=== PATIENT | male | born 1950 | race Caucasian/White ===

== ENCOUNTER 2024-04-23 09:36 | Inpatient (IN) | payer MEDICARE, BC, SELFPAY ==
[2024-04-23] VITALS (10 sets, daily range): BP systolic 118–150; BP diastolic 64–95; PULSE 74–113; RESP 18–32; TEMP 36.7–39.3; O2SAT 95–99; BMI 35.5
--- NOTE | 2024-04-23 10:28 | XR_ITS ---
Examination: AP chest single view Technique one AP portable semiupright chest single view Exam date and time: April 23, 2024 1049 hrs. Comparison November 03, 2022 Indications: Shortness of breath coughing beginning 2 days ago. Findings: Mild enlargement cardiac contour Moderate vascular congestion No lobar pneumonia Impression: Moderate vascular congestion
[2024-04-23 10:50] LABS: Basophils % (Auto) 0 % (0-2.5); Eosinophils % (Auto) 0 % (0-10); Hematocrit 40.4 % (41.0-53.0); Hemoglobin 13.6 g/dL (13.5-16.0); Immature Granulocytes % (Auto) 0 % (0-0); Immature Granulocytes Auto 0.01 Thou/mm3 (0.00-0.00); Lymphocytes # (Auto) 0.5 Thou/mm3 (1.0-4.8); Lymphocytes % (Auto) 10 % (10-50); Mean Corpuscular HGB Conc 33.7 g/dl (31.0-37.0); Mean Corpuscular Hemoglobin 29.8 pg (25.0-35.0); Mean Corpuscular Volume 89 fL (80-100); Monocytes # (Auto) 0.9 Thou/mm3 (0.0-0.8); Monocytes % (Auto) 18 % (0-12); Neutrophils # (Auto) 3.7 Thou/mm3 (1.8-7.7); Neutrophils % (Auto) 72 % (37-80); Nucleated Red Blood Cell % 0 /100 WBC (0); Platelet Count 118 Thou/mm3 (140-440); RDW Standard Deviation 42.8 fL (35.1-43.9); Red Blood Count 4.56 Miln/mm3 (4.50-5.90); White Blood Count 5.1 Thou/mm3 (3.8-10.6)
[2024-04-23 10:52] LABS: Lactate (Lactic Acid) 0.7 mMol/L (0.4-2.0)
[2024-04-23] MEDS: SODIUM CHLORIDE 0.9% 1000 ML 1,000 ML 999 ML IV (11:07)
[2024-04-23 11:16] LABS: Alanine Aminotransferase 10 U/L (10-49); Albumin, Serum 4.1 gm/dL (3.4-4.8); Albumin/Globulin Ratio 1.5 (1.2-2.2); Alkaline Phosphatase 57 U/L (46-116); Anion Gap 8 (7-16); Aspartate Amino Transferase < 10 U/L (0-34); BUN/Creatinine Ratio 16 Ratio (12-20); Bilirubin,Total 0.5 mg/dL (0.3-1.2); Blood Urea Nitrogen 16 mg/dL (9-23); Calcium 8.7 mg/dL (8.3-10.6); Calcium (Corrected) 8.7 mg/dL (8.5-10.1); Chloride 105 mMol/L (98-107); Estimated Creatinine Clearance 71.7 mL/min (>60); Globulin 2.7 gm/dL (2.3-3.5); Glucose 124 mg/dL (74-106); Osmolality,Calculated 283 (275-295); Potassium 4.3 mMol/L (3.4-5.1); Procalcitonin 0.09 ng/ml (0.0-0.49); Sodium 141 mMol/L (136-145); Total Protein 6.8 gm/dL (5.7-8.2); eGFR > 60 See Note
[2024-04-23 11:27] LABS: Collection Type, Urine Clean Catch
[2024-04-23 11:32] LABS: Bilirubin,Urine Negative (Negative); Blood,Urine Negative (Negative); Clarity,Urine Clear (Clear/Hazy); Color,Urine Lt-Yellow (Lt Yel-Yel); Glucose, Urine Negative (Negative); Ketones,Urine Negative (Negative); Leukocyte Esterase,Urine Negative (Negative); Nitrite,Urine Negative (Negative); Protein,Urine 1+ (Neg - Trace); RBC,Urine 1 /hpf (0-3); Specific Gravity,Urine 1.023 (1.001-1.035); Squamous Epithelial Cell,Urine < 1 /hpf (0-5); Urobilinogen,Urine Negative mg/dL (0.0-1.0); WBC,Urine 2 /hpf (0-5)
--- NOTE | 2024-04-23 11:50 | XR_ITS ---
Examination: CT brain head without contrast. 2-D sagittal coronal reconstructions Date and time of exam:April 23, 2024 1409 hrs. Comparison November 10, 2021. Indications: Onset altered mental status today CTDI: vol (mGy):54.8 DLP: (mGycm):1134 Technique: Multiple CT axial sections of the brain have been obtained, 5 mm slice thickness. Contrast has not been administered. 2-D sagittal, coronal reconstructions have been obtained Low dose protocols were performed. One or more of the following dose reduction techniques were used; automated exposure control, adjustment of the mA and/or KV according to patient size, use of iterative reconstruction technique. Findings: No significant ventricular enlargement. Intra-axial or extra-axial hemorrhage density is not seen. No mass effect or midline shift Basal cisterns are not remarkable. Fourth ventricle is midline. Cranial vault intact. Impression: Negative for acute hemorrhage, mass effect or midline shift Advise clinical correlation and follow-up accordingly
--- NOTE | 2024-04-23 14:07 | EDNOTE_ITS ---
<Statement entered by Masoud Quach MD - 04/25/24 22:21> Patient was seen by Dr. Mitchell from ER. ED General RME/HPI General Chief complaint: Altered Mental Status Stated complaint: AMS Arrival date/time: 04/23/24 09:36 RME / HPI RME / HPI narrative: 74-year-old male with a history of Parkinson's dementia, wheelchair-bound, who presents to the emergency department with increased cough, fevers, and mild lethargy. Patient is slow to answer questions does not offer further details. Related Data Home Medications ?Medication ?Instructions ?Recorded ?Confirmed carbidopa 25 mg-levodopa 100 mg 1 tab PO Q6HR 11/03/22 04/23/24 tablet furosemide 40 mg tablet 40 mg PO BID 11/03/22 gemfibrozil 600 mg tablet 600 mg PO DAILY 11/03/2205/16 nitroglycerin 0.4 mg sublingual 0.4 mg buccal PRN PRN Chest Pain 11/03/22 04/23/24 tablet potassium chloride 10 mEq 10 meq PO DAILY 11/03/2205/16 tablet,extended release(part/cryst) ropinirole 1 mg tablet 0.5 mg PO QAM 11/03/2204/23 tamsulosin 0.4 mg capsule 0.4 mg PO DAILY 11/03/2205/16 tizanidine 4 mg tablet 4 - 8 mg PO HS 11/03/2205/16 carbidopa ER 61.25 mg-levodopa 245 1 cap PO TID 04/23/24 mg capsule,extended release (Rytary) linaclotide 145 mcg capsule 145 mcg PO QAM 04/23/24 (Linzess) melatonin 10 mg tablet 10 mg PO HS 04/23/24 5 Allergies Allergy/AdvReac Type Severity Reaction Status Date / Time Sulfa (Sulfonamide Allergy Intermediate Swelling Verified 04/23/24 10:05 Antibiotics) of Lip/Tongue/Throat lorazepam (From Ativan) AdvReac Unknown Confusion Verified 04/23/24 20:57 Review of Systems Review of Systems ROS Unobtainable: unobtainable due to mental status ED Exam Narrative Physical exam: GENERAL APPEARANCE: AxOx4, generally well-appearing, no acute distress, he has occasional wet cough during encounter, low-frequency pill-rolling tremor HEENT: NC, AT. MMM. EOMI, clear conjunctiva, oropharynx clear. NECK: Supple without lymphadenopathy. No stiffness or restricted ROM. HEART: Normal rate and regular rhythm, normal S1/S1, no m/r/g LUNGS: CTAB, moving air well. No crackles or wheezes are heard. ABDOMEN: Soft, nontender, nondistended with good bowel sounds heard. BACK: No midline C/T/L spine pain or deformity, No CVAT, no obvious deformity. EXTREMITIES: Without cyanosis, clubbing or edema. MUSCULOSKELETAL: FROM of all major joints, no chest tenderness NEUROLOGICAL: Grossly nonfocal. Alert and oriented, moving all 4 extremities. CN not formally tested but appear grossly intact. Observed to ambulate with normal gait. Skin: Warm and dry without any rash. Course Quality Measures none Orders Category Date Time Status Bedside COVID-19 Antigen Test NOW Care 04/23/24 11:50 Completed Bedside Influenza A&B Antigen Test NOW Care 04/23/24 11:[address] head/brain wo con Stat Exams 04/23/24 11:50 Completed XR chest 1V Stat Exams 04/23/24 10:28 Completed Blood Culture (Lab) Stat Lab 04/23/24 16:34 Results CBC Stat Lab 04/23/24 10:37 Completed CMP [Comprehensive Metabolic Panel] Stat Lab 04/23/24 10:37 Completed Lactate (Lactic Acid) Stat Lab 04/23/24 10:47 Completed Procalcitonin Stat Lab 04/23/24 10:37 Completed Urinalysis Stat Lab 04/23/24 11:09 Completed Acetaminophen Tab [Tylenol Tab] Med 04/23/24 14:38 Discontinued 650 mg PO X1 ONE Sodium Chloride 0.9% 1000 ml [Ns] 1,000 ml Med 04/23/24 10:28 Discontinued IV 999 mls/hr Reevaluation(s) Reevaluation #1: Patient became altered, agitated, picking at the abilio, taking his clothes off Vital Signs Vital signs: Vital Signs Temperature 100.4 F 04/23/24 09:41 Pulse Rate 85 04/23/24 09:41 Respiratory Rate 22 H 04/23/24 09:41 Blood Pressure 150/79 H 04/23/24 09:41 Pulse Oximetry (%) 97 04/23/24 09:41 Oxygen Delivery Method Nasal Cannula 04/23/24 09:41 SpO2 97% on room air, patient is not hypoxic MDM Patient data External records reviewed:: [facility] previous records Clinical information provided by:: patient and spouse Social determinants that could affect healthcare access:: none Patient has the following chronic illnesses:: Rym-pawkubq-rphkjrihg diabetes, Parkinson's How is presenting disease/condition affected by chronic disease/condition?: u neffected by Evaluation data The following diagnostics were reviewed and interpreted by me:: lab results, radiology exam(s) and EKG tracing(s) Lab and/or radiology exams considered but not ordered:: None Interpretation Summary: As per narrative Medications Medications considered but not ordered:: As per narrative Medication administrations:: Medication Administration History Acetaminophen (Acetaminophen 325 Mg Tablet) 650 mg PO Q6H PRN PRN Reason: Pain 1-3 and/or Fever >100.1 Stop: 05/23/24 16:08 Last Admin: 04/25/24 14:06 Dose: 650 mg Documented By: Admin: 04/24/24 00:16 Dose: 650 mg Documented By: RADHA Young 145 Mcg (Capsules) 0 ea PO ACBR [facility] Stop: 05/25/24 05:59 Last Admin: 04/25/24 05:33 Dose: 1 capsule Documented By: SUGEY Rytary (Carbidopa/Levodopa) 61.25 Mg/245 Mg Extended Release Capsules 0 ea PO TID [facility] Stop: 05/25/24 13:59 Last Admin: 04/25/24 14:07 Dose: 1 capsule Documented By: MT Dextrose (Dextrose 50%-Water Inj 50 Ml Syringe) 25 ml IV Q15MIN PRN PRN Reason: BG 50-70 responsive npo pt Stop: 05/23/24 16:08 Dextrose (Dextrose 50%-Water Inj 50 Ml Syringe) 50 ml IV Q15MIN PRN PRN Reason: BG <50 OR BG <70 & pt unresponsive Stop: 05/23/24 16:08 Glucagon (Glucagon Inj 1 Mg Vial) 1 mg IM Q15MIN PRN PRN Reason: BG <70, and no IV access Heparin Sodium (Porcine) (Heparin Sod Inj 5000 Unit/Ml Vial) 5,000 unit SC Q12HR [facility] Stop: 05/07/24 20:59 Last Admin: 04/25/24 10:32 Dose: 5,000 unit Documented By: MT Co-signed By: Admin: 04/24/24 20:38 Dose: 5,000 unit Documented By: SUGEY Co-signed By: JOHNATHAN Admin: 04/24/24 09:55 Dose: 5,000 unit Documented By: JOVAN Co-signed By: RAJ Admin: 04/23/24 22:14 Dose: 5,000 unit Documented By: CTF Co-signed By: FESTUS Remdesivir 100 mg/ Sodium (Chloride) 100 mls @ 100 mls/hr IV Q24H NR; Protocol Stop: 04/25/24 14:59 Last Admin: 04/25/24 14:31 Dose: 100 mls/hr Documented By: Infusion: 04/24/24 15:11 Dose: Infused Documented By: Admin: 04/24/24 14:11 Dose: 100 mls/hr Documented By: JOVAN Insulin Human Lispro (Insulin Lispro (Admelog) 1 Unit/0.01 Ml Unit) 0 unit SC AC FERNANDO; Protocol Stop: 05/23/24 16:59 Last Admin: 04/25/24 11:35 Dose: Not Given Documented By: MT Non-Admin Reason: Per Protocol Admin: 04/25/24 07:30 Dose: Not Given Documented By: MT Non-Admin Reason: Per Protocol Admin: 04/24/24 17:44 Dose: Not Given Documented By: RAJ Non-Admin Reason: Per Protocol Admin: 04/24/24 11:16 Dose: Not Given Documented By: JOVAN Non-Admin Reason: Per Protocol Admin: 04/24/24 09:56 Dose: Not Given Documented By: JOVAN Non-Admin Reason: Per Protocol Admin: 04/23/24 17:09 Dose: Not Given Documented By: VRS Non-Admin Reason: Per Protocol Melatonin (Melatonin 3 Mg Tablet) 9 mg PO HS FERNANDO Stop: 05/23/24 20:59 Last Admin: 04/24/24 20:37 Dose: 9 mg Documented By: Admin: 04/23/24 22:02 Dose: 9 mg Documented By: CTF Ondansetron HCl (Ondansetron Inj 2 Mg/Ml Inj 2 Ml) 4 mg IV Q6H PRN; Protocol PRN Reason: NAUSEA OR VOMITING Stop: 05/23/24 16:08 Ropinirole HCl (Ropinirole Hcl 0.25 Mg Tablet) 0.5 mg PO QAM FERNANDO Stop: 05/24/24 08:59 Last Admin: 04/25/24 10:32 Dose: 0.5 mg Documented By: MT Sennosides (Senna Tablet) 1 tab PO QDAY PRN; Protocol PRN Reason: constipation Stop: 05/23/24 16:08 Tamsulosin HCl (Tamsulosin Hcl 0.4 Mg Capsule) 0.4 mg PO DAILY FERNANDO Stop: 05/24/24 08:59 Last Admin: 04/25/24 10:32 Dose: 0.4 mg Documented By: Admin: 04/24/24 09:55 Dose: 0.4 mg Documented By: VZ Tizanidine HCl (Tizanidine Hcl 2 Mg Tablet) 4 - 8 mg PO HS [facility] Stop: 05/23/24 20:59 Last Admin: 04/24/24 20:38 Dose: 4 mg Documented By: Admin: 04/23/24 22:03 Dose: 4 mg Documented By: CTF Discontinued Medications Acetaminophen (Acetaminophen 325 Mg Tablet) 650 mg PO X1 ONE Stop: 04/23/24 14:39 Last Admin: 04/23/24 14:42 Dose: 650 mg Documented By: CAMILA Sodium Chloride (Ns) 1,000 mls @ 999 mls/hr IV .Q1H1M ONE Stop: 04/23/24 11:28 Last Infusion: 04/23/24 13:26 Dose: Infused Documented By: Admin: 04/23/24 11:07 Dose: 999 mls/hr Documented By: CAMILA Remdesivir 200 mg/ Sodium (Chloride) 250 mls @ 250 mls/hr IV X1 ONE; Protocol Stop: 04/23/24 17:20 Last Infusion: 04/23/24 19:12 Dose: Infused Documented By: Admin: 04/23/24 17:08 Dose: 250 mls/hr Documented By: CAMILA Home Medication- Please Speak With Patient Caregiver To Have Rx Brought To [facility] 1 cap PO TID FERNANDO Stop: 05/23/24 16:14 Last Admin: 04/25/24 06:00 Dose: Not Given Documented By: SUGEY Non-Admin Reason: Medication Not Available Admin: 04/24/24 21:28 Dose: Not Given Documented By: SUGEY Non-Admin Reason: Medication Not Available Admin: 04/24/24 14:12 Dose: Not Given Documented By: VZ Non-Admin Reason: Medication Not Available Admin: 04/24/24 05:42 Dose: Not Given Documented By: CTF Non-Admin Reason: Medication Not Available Admin: 04/23/24 22:23 Dose: Not Given Documented By: CTF Non-Admin Reason: Medication Not Available Admin: 04/23/24 16:31 Dose: Not Given Documented By: ER Non-Admin Reason: Medication Not Available Home Medication- Please Speak With Patient Caregiver To Have Rx Brought To [facility] 145 mcg PO QAM [facility] Stop: 05/24/24 08:59 Last Admin: 04/24/24 09:56 Dose: Not Given Documented By: VZ Non-Admin Reason: Medication Not Available Ropinirole HCl (Ropinirole Hcl 0.5 Mg Tablet) 0.5 mg PO QAM [facility] Stop: 05/24/24 08:59 Last Admin: 04/24/24 09:56 Dose: Not Given Documented By: VZ Non-Admin Reason: Medication Not Available Above Consultations Consultation(s) initiated? (list below): No Diagnosis Differential Diagnosis ED Complaint MDM: Pneumonia, aspiration pneumonia, influenza, COVID-pneumonia Most likely diagnosis given after review of the tests above:: See below Admission Indicated Admission indicated?: indicated Explain why admission is indicated or not indicated:: As per narrative Admission Request Was there a request for admission?: Yes Admission Attestation Admission request attestation: Discussed case with [Dr. Marquez] from Hospitalist service regarding admission. Discussed patients ED course, exam findings, labs, and radiology results. The Hospitalist [agrees,declines] to accept the patient for admission. Disposition Plan Disposition Plan: Admit Medical Decision Making MDM Narrative MDM Narrative: Mr. Stevens is a clinically well-appearing gentleman who presents to the emergency department with vague cough and lethargy/weakness. He otherwise clinically appears well but is coughing occasionally. He was on forthcoming as to whether or not he has aspiration issues given his Parkinson's disease, however with his coughing this was at a significant consideration. In case he needs to be admitted for an aspiration pneumonia, viral testing was done which rapidly returned to positive for COVID. Patient rapidly changed from being comfortable, having a steady note here to laboratory testing was sent which shows no acute processes and significant for normal white blood cell count, normal lactic acid, normal procalcitonin which is fitting with a viral illness picture. Chest x-ray shows no acute cardiopulmonary process on my interpretation but is notable for a mildly widened mediastinum, no focal infiltrates, no bony abnormalities. I also reviewed the radiology interpretation. patient had sudden change in mental status where he was altered, agitated, taking his clothes off, picking at the abilio. It is unclear as to whether that this is secondary to his chronic Parkinson's dementia versus a infectious encephalitis. He does not exhibit symptoms of headache or neck stiffness that would suggest a meningitis. Case was discussed with the hospitalist service given his altered mental status and delirium to monitor under observation. Differential Diagnosis Differential Diagnosis: Pneumonia, aspiration pneumonia, influenza, COVID- pneumonia Lab Data 04/25/24 05:10 04/25/24 05:10 Labs: Lab Results 04/23/24 04/23/24 04/23/24 Range/Units 10:37 10:47 11:09 WBC 5.1 (3.8-10.6) Thou/mm3 RBC 4.56 (4.50-5.90) Miln/mm3 Hgb 13.6 (13.5-16.0) g/dL Hct 40.4 L (41.0-53.0) % MCV 89 (80-100) fL MCH 29.8 (25.0-35.0) pg MCHC 33.7 (31.0-37.0) g/dl RDW Std Deviation 42.8 (35.1-43.9) fL Plt Count 118 L (140-440) Thou/mm3 Neut % (Auto) 72 (37-80) % Lymph % (Auto) 10 (10-50) % [place] % (Auto) 18 H (0-12) % Eos % (Auto) 0 (0-10) % Baso % (Auto) 0 (0-2.5) % Neut # (Auto) 3.7 (1.8-7.7) Thou/mm3 Lymph # (Auto) 0.5 L (1.0-4.8) Thou/mm3 [place] # (Auto) 0.9 H (0.0-0.8) Thou/mm3 Eos # (Auto) 0.0 (0.0-0.5) Thou/mm3 Baso # (Auto) 0.0 (0.0-0.2) Thou/mm3 Immature Gran # (Auto) 0.01 H (0.00-0.00) Thou/mm3 Absolute Nucleated RBC 0.00 (0.00-0.00) Thou/mm3 Immature Gran % 0 (0-0) % Nucleated RBC % 0 (0) /100 WBC Sodium 141 (136-145) mMol/L Potassium 4.3 (3.4-5.1) mMol/L Chloride 105 (98-107) mMol/L Carbon Dioxide 28.0 (20.0-31.0) mMol/L Anion Gap 8 (7-16) BUN 16 (9-23) mg/dL Creatinine 1.0 (0.6-1.3) mg/dL Estim Creat Clear Calc 71.7 (>60) mL/min eGFR > 60 (60 - ) See Note BUN/Creatinine Ratio 16 (12-20) Ratio Glucose 124 H (74-106) mg/dL Calculated Osmolality 283 (275-295) Lactic Acid 0.7 (0.4-2.0) mMol/L Calcium 8.7 (8.3-10.6) mg/dL Corrected Calcium 8.7 (8.5-10.1) mg/dL Total Bilirubin 0.5 (0.3-1.2) mg/dL AST < 10 (0-34) U/L ALT 10 (10-49) U/L Alkaline Phosphatase 57 (46-116) U/L Total Protein 6.8 (5.7-8.2) gm/dL Albumin 4.1 (3.4-4.8) gm/dL Globulin 2.7 (2.3-3.5) gm/dL Albumin/Globulin Ratio 1.5 (1.2-2.2) Procalcitonin 0.09 (0.0-0.49) ng/ml Ur Collection Type Clean Catch Urine Color Lt-Yellow (Lt Yel-Yel) Urine Clarity Clear (Clear/Hazy) Urine pH 6.0 (5.0-7.0) Ur Specific [place] 1.023 (1.001-1.035) Urine Protein 1+ A (Neg - Trace) Urine Glucose (UA) Negative (Negative) Urine Ketones Negative (Negative) Urine Blood Negative (Negative) Urine Nitrite Negative (Negative) Urine Bilirubin Negative (Negative) Urine Urobilinogen (Auto) Negative (0.0-1.0) mg/dL Ur Leukocyte Esterase Negative (Negative) Urine RBC 1 (0-3) /hpf Urine WBC 2 (0-5) /hpf Ur Squamous Epith Cells < 1 (0-5) /hpf Urine Bacteria None (None) Discharge Plan Plan Patient Disposition: Admit Acute Care w/in Hospital Problem List Clinical Impression: COVID-19, Delirium due to general medical condition, Dementia in Parkinson's disease
[2024-04-23] MEDS: ACETAMINOPHEN 325 MG TABLET 650 MG PO (14:42)
--- NOTE | 2024-04-23 15:55 | PC.NURSE ---
DR. AUGUSTIN ON THE PHONE WITH AND UPDATING ON PLAN OF CARE.
--- NOTE | 2024-04-23 16:23 | ESHP_ITS ---
Documentation for date of: 04/23/24 HPI History of Present Illness Chief complaint: Cough, subjective fever and lethargy History of present illness: 74-year-old male with a past medical history of diabetes, Parkinson's disease, prostatomegaly, and urinary retention s/p UroLift procedure presented to the ED with chief complaints of generalized weakness, fever, and unproductive cough. History acquired from ED physician along with over telephone. The patient has Parkinson's disease but per is able to ambulate at home using a walker. She denies that the patient has had any recent falls. Patient is verbal and does sporadically answer questions appropriately; however, he needs extensive redirection when examining. Per patient's , the entire household is COVID positive and she states that she is unable to effectively take care of him. The is the primary real estate agency licensee for the patient. PMH: DM2, Parkinson, BPH,ventral hernia Allergies: Sulfa drugs Meds: Carbidopa-levodopa, Linzess, ropinirole, tamsulosin, tizanidine PSH: Bilateral knee total replacement, urolift. Family History: noncontributory SH: Denies smoking, alcohol use, lives at home with . is a caregiver In ED, patients vitals was BP 155/73, HR 87, RR 25, satting 92+ on room air. Imaging findings included CXR which showed Mild enlargement cardiac contour, moderate vascular congestion and no lobar pneumonia. CT head was negative for any acute process. Patient will be admitted for COVID 19 exacerbation and will be treated with remdesivir regimen; will have further discussion with patient's family regarding eventual discharge and placement. Exam Vital Signs Temp Pulse Resp BP Pulse Ox O2 Del Method 100.4 F 89 32 H 121/92 H 95 Room Air 04/23/24 16:00 04/23/24 16:00 04/23/24 16:00 04/23/24 16:04/23/24 16:04/23/24 16:00 Narrative Exam Physical Exam: GENERAL: Awake, answering questions appropriately at times, appears stated age HEENT: NC/AT. Moist mucosa. PERRLA/EOMI. CARDIO: Heart RRR, no obvious murmurs, no JVD. PULM: Nonproductive coughing, no signs of visible SOB. Lungs CTA B/L. No Rales, wheezing or rhonchi auscultated GI: Abdomen mildly distended but soft, NT, +BS. Presence of ventral hernia SKIN/MSK/EXT: No wounds/discoloration/rashes/edema/amputations. +Pedal pulses present B/L. NEURO: Oriented x2 (not to place, gave unclear answer), pill-rolling tremor noted bilateral upper extremities, no focal neurologic deficits Results: Labs 04/25/24 05:10 04/25/24 05:10 Labs: Short CBC 04/23/24 Range/Units 10:37 WBC 5.1 (3.8-10.6) Thou/mm3 Hgb 13.6 (13.5-16.0) g/dL Hct 40.4 L (41.0-53.0) % Plt Count 118 L (140-440) Thou/mm3 BMP 04/23/24 10:37 Sodium 141 Potassium 4.3 Chloride 105 Carbon Dioxide 28.0 BUN 16 Creatinine 1.0 Glucose 124 H Calcium 8.7 Liver Function 04/23/24 Range/Units 10:37 Total Bilirubin 0.5 (0.3-1.2) mg/dL AST < 10 (0-34) U/L ALT 10 (10-49) U/L Alkaline Phosphatase 57 (46-116) U/L Albumin 4.1 (3.4-4.8) gm/dL Urine 04/23/24 Range/Units 11:09 Urine Color Lt-Yellow (Lt Yel-Yel) Urine Clarity Clear (Clear/Hazy) Urine pH 6.0 (5.0-7.0) Ur Specific [place] 1.023 (1.001-1.035) Urine Protein 1+ A (Neg - Trace) Urine Glucose (UA) Negative (Negative) Quality Measures Quality Measures none Advance care planning discussed with:: spouse () Medications Home Medications and Allergies Home Medications ?Medication ?Instructions ?Recorded ?Confirmed ?Type carbidopa 25 mg-levodopa 100 mg 1 tab PO Q6HR 11/03/22 04/23/24 History tablet furosemide 40 mg tablet 40 mg PO BID 11/03/22 History gemfibrozil 600 mg tablet 600 mg PO DAILY 11/03/2205/16 History nitroglycerin 0.4 mg sublingual 0.4 mg buccal PRN PRN Chest Pain 11/03/22 04/23/24 History tablet potassium chloride 10 mEq 10 meq PO DAILY 11/03/2205/16 History tablet,extended release(part/cryst) ropinirole 1 mg tablet 0.5 mg PO QAM 11/03/2204/23 History tamsulosin 0.4 mg capsule 0.4 mg PO DAILY 11/03/2205/16 History tizanidine 4 mg tablet 4 - 8 mg PO HS 11/03/2205/16 History carbidopa ER 61.25 mg-levodopa 245 1 cap PO TID 04/23/24 History mg capsule,extended release (Rytary) linaclotide 145 mcg capsule 145 mcg PO QAM 04/23/24 History (Linzess) melatonin 10 mg tablet 10 mg PO HS 04/23/24 5 History Allergies Allergy/AdvReac Type Severity Reaction Status Date / Time Sulfa (Sulfonamide Allergy Intermediate Swelling Verified 04/23/24 10:05 Antibiotics) of Lip/Tongue/Throat lorazepam (From Ativan) AdvReac Unknown Confusion Verified 04/23/24 20:57 Visit Medications Acetaminophen (Acetaminophen 325 Mg Tablet) 650 mg PO Q6H PRN PRN Reason: Pain 1-3 and/or Fever >100.1 Stop: 05/23/24 16:08 Dextrose (Dextrose 50%-Water Inj 50 Ml Syringe) 25 ml IV Q15MIN PRN PRN Reason: BG 50-70 responsive npo pt Stop: 05/23/24 16:08 Dextrose (Dextrose 50%-Water Inj 50 Ml Syringe) 50 ml IV Q15MIN PRN PRN Reason: BG <50 OR BG <70 & pt unresponsive Stop: 05/23/24 16:08 Glucagon (Glucagon Inj 1 Mg Vial) 1 mg IM Q15MIN PRN PRN Reason: BG <70, and no IV access Heparin Sodium (Porcine) (Heparin Sod Inj 5000 Unit/Ml Vial) 5,000 unit SC Q12HR FERNANDO Stop: 05/07/24 20:59 Insulin Human Lispro (Insulin Lispro (Admelog) 1 Unit/0.01 Ml Unit) 0 unit SC FERNANDO; Protocol Stop: 05/23/24 16:59 Melatonin (Melatonin 3 Mg Tablet) 9 mg PO [facility] Stop: 05/23/24 20:59 Home Medication- Please Speak With Patient Caregiver To Have Rx Brought To [facility] 1 cap PO TID [facility] Stop: 05/23/24 16:14 Home Medication- Please Speak With Patient Caregiver To Have Rx Brought To [facility] 145 mcg PO QAM [facility] Stop: 05/24/24 08:59 Ondansetron HCl (Ondansetron Inj 2 Mg/Ml Inj 2 Ml) 4 mg IV Q6H PRN; Protocol PRN Reason: NAUSEA OR VOMITING Stop: 05/23/24 16:08 Ropinirole HCl (Ropinirole Hcl 0.5 Mg Tablet) 0.5 mg PO QAM [facility] Stop: 05/24/24 08:59 Sennosides (Senna Tablet) 1 tab PO QDAY PRN; Protocol PRN Reason: constipation Stop: 05/23/24 16:08 Tamsulosin HCl (Tamsulosin Hcl 0.4 Mg Capsule) 0.4 mg PO DAILY [facility] Stop: 05/24/24 08:59 Tizanidine HCl (Tizanidine Hcl 2 Mg Tablet) 4 - 8 mg PO HS [facility] Stop: 05/23/24 20:59 Discontinued Medications Acetaminophen (Acetaminophen 325 Mg Tablet) 650 mg PO X1 ONE Stop: 04/23/24 14:39 Last Admin: 04/23/24 14:42 Dose: 650 mg Sodium Chloride (Ns) 1,000 mls @ 999 mls/hr IV .Q1H1M ONE Stop: 04/23/24 11:28 Last Infusion: 04/23/24 13:26 Dose: Infused Assessment & Plan Plan 74-year-old male with a past medical history of diabetes, Parkinson's disease, prostatomegaly, and urinary retention s/p UroLift procedure presented to the ED with chief complaints of generalized weakness, fever, and unproductive cough will be admitted for COVID 19 exacerbation and will be treated with remdesivir regimen; will have further discussion with patient's family regarding eventual discharge and placement. #COVID 19 Infection Patient presenting from home with symptoms of subjective fever, cough and lethargy Per patient's , who is his primary real estate agency licensee also, patient, patient's has been feeling this way for several days Also, patient's family members in the household have also been COVID-positive and are symptomatic Patient's also states that she is currently unable to effectively take care of patient In the ED, patient does not require any supplemental oxygenation; however, he does have risk factors including diabetes Plan: Moderate degree remdesivir treatment for COVID Monitor oxygenation requirements PT eval, swallow eval; will likely look into placement and conversation with family regarding patient's long-term care needs #Parkinson's Disease Patient has longstanding history of Parkinson disease; on home carbidopa/levodopa, ropinirole and tizanidine Plan: Restart home medications #Non-insulin dependent type 2 diabetes mellitus Last A1c 5.6 Patient is not on any home medications Plan: Sliding scale insulin A1c in a.m. Lipid panel in a.m. #Hypertension Patient is mildly hypertensive with a systolic blood pressure 155, diastolic 73 Likely secondary to acutely ill status Patient does not have any home antihypertensive medication Plan: Monitor blood pressure #BPH Patient has long standing history of BPH, on home tamsulosin 0.4 mg Plan: Restart home medications #History of constipation, IBS-C Patient on Linzess 145 mcg; states 30 minutes before first meal in the a.m. Plan: Restart home medication Hospital Management: Lines: PIV Bowel: Senna Diet: Clear liquid diet if patient passes nurse swallow screen, pending speech eval to advance GI prophylaxis: Not needed DVT prophylaxis: Heparin subcu Dispo: Treatment for COVID exacerbation Code: Full Patient seen and examined with attending Dr. Quach and senior resident Dr. Jimmy Aldridge, PGY-1 Senior resident attestation: The patient is medical history of Parkinson's disease, prostatomegaly s/p UroLift procedure who was admitted with diagnosis of Acute encephalopathy vs delirium in the setting of COVID infection, Spoke with the full stated patient's baseline mentation is AO x 3, patient was brought with increased cough, fevers and lethargy. Reported she cannot take care of the patient at this time as she has to take care of her mother who is infected with COVID. Per ER physician patient's mentation was at baseline at time of arrival, but over time he started having more confused speech, at time of evaluation the patient can still offer some history in response to direct questions but is mumbling and occasionally has confused speech. Stable vitals but Tmax 102 F, chest x-ray shows moderate vascular congestion. Urinalysis unremarkable Home medications include : tamsulosin 0.4 mg, Tizanidine 2 mg, Ropinirole 0.5 mg, Melatonin, Carbidopa levodopa 1 cap 3 times daily, Hannah Impression: 1?acute encephalopathy versus delirium Possible ing, during prior hospitalization patient had similar episodes of altered mental status which would worsen throughout the day by , continue to observe, patient does have history of Parkinson's, possible underlying Lewy body dementia. 2?COVID-19 infection Started remdesivir, currently saturating well on 2 L NC O2 3?history of Parkinson's Resume home medications. Patient evaluated and examined at the bedside, plan of care discussed with rest of the team including my attending physician, except as noted. Jimmy PGY2 Attending Provider Attestation/Addendum Patient was een in ER 8. Patient admitted for fever, cough and lethargy. He is positive for COVID. PMH significant for Parkinson's disease, prostate enlargement and urinary retention. Remdesivir started.
[2024-04-23] MEDS: REMDESIVIR INJ 200 MG in SODIUM CHLORIDE 0.9% 250 ML 250 ML 250 MG IV (17:08)
--- NOTE | 2024-04-23 18:37 | PC.NURSE ---
Addendum entered by Jodi Campos RN 04/23/24 18:41: REPORT CALLED TO GENNA FORDE NOT RACHELLE. Original Note: REPORT CALLED TO RACHELLE FORDE IN MED SURG. ALL QUESTIONS ANSWERD.
--- NOTE | 2024-04-23 21:00 | PC.NURSE ---
called Bhumika Stevens and advised to bring own med bottle carbidopa-Levodopa and Linzess from home.
[2024-04-23] MEDS: MELATONIN 3 MG TABLET 9 MG PO (22:02)
[2024-04-23] MEDS: tiZANidine HCL 2 MG TABLET PO (22:03)
[2024-04-23] MEDS: HEPARIN SOD INJ 5000 UNIT/ML VIAL SC (22:14)
[2024-04-24] VITALS (13 sets, daily range): BP systolic 101–133; BP diastolic 55–78; PULSE 63–101; RESP 10–28; TEMP 36.1–37.4; O2SAT 92–98; BMI 12.0; BMI 35.6
[2024-04-24] MEDS: ACETAMINOPHEN 325 MG TABLET 650 MG PO (00:16)
--- NOTE | 2024-04-24 00:20 | PC.NURSE ---
pt asleep, 91% O2 sat on room air- Applied O2 inh on at 2L/min/nc per request. Pt uses O2 concentrator at night at 2L/min/nc at home.
[2024-04-24 05:40] LABS: Glucose Estimated Average 111 mg/dL (80-131); Hemoglobin A1C 5.5 % Hgb (4.8-6.0)
[2024-04-24 05:49] LABS: Basophils % (Auto) 0 % (0-2.5); Eosinophils % (Auto) 0 % (0-10); Hematocrit 39.8 % (41.0-53.0); Immature Granulocytes % (Auto) 1 % (0-0); Immature Granulocytes Auto 0.03 Thou/mm3 (0.00-0.00); Lymphocytes # (Auto) 0.8 Thou/mm3 (1.0-4.8); Lymphocytes % (Auto) 11 % (10-50); Mean Corpuscular HGB Conc 32.7 g/dl (31.0-37.0); Mean Corpuscular Hemoglobin 29.8 pg (25.0-35.0); Mean Corpuscular Volume 91 fL (80-100); Monocytes # (Auto) 1.1 Thou/mm3 (0.0-0.8); Monocytes % (Auto) 17 % (0-12); Neutrophils # (Auto) 4.7 Thou/mm3 (1.8-7.7); Nucleated Red Blood Cell % 0 /100 WBC (0); Platelet Count 103 Thou/mm3 (140-440); RDW Standard Deviation 43.3 fL (35.1-43.9); Red Blood Count 4.36 Miln/mm3 (4.50-5.90); White Blood Count 6.6 Thou/mm3 (3.8-10.6)
[2024-04-24 06:10] LABS: Neutrophils % (Auto) 71 % (37-80)
[2024-04-24 06:27] LABS: Alanine Aminotransferase 13 U/L (10-49); Albumin/Globulin Ratio 1.6 (1.2-2.2); Alkaline Phosphatase 50 U/L (46-116); Anion Gap 10 (7-16); Aspartate Amino Transferase 14 U/L (0-34); BUN/Creatinine Ratio 16 Ratio (12-20); Bilirubin,Total 0.6 mg/dL (0.3-1.2); Blood Urea Nitrogen 16 mg/dL (9-23); Calcium 8.8 mg/dL (8.3-10.6); Calcium (Corrected) 8.8 mg/dL (8.5-10.1); Carbon Dioxide 25.6 mMol/L (20.0-31.0); Cardiac Risk Estimate 2.9 RATIO (4.0-6.7); Chloride 106 mMol/L (98-107); Cholesterol 119 mg/dL (132-200); Globulin 2.5 gm/dL (2.3-3.5); Glucose 113 mg/dL (74-106); HDL Cholesterol 41 mg/dL (40-60); LDL Cholesterol,Calculated 65 mg/dL (0-130); Magnesium 1.9 mg/dL (1.6-2.6); Osmolality,Calculated 285 (275-295); Phosphorous 4.8 mg/dL (2.4-5.1); Potassium 3.6 mMol/L (3.4-5.1); Sodium 142 mMol/L (136-145); Total Protein 6.5 gm/dL (5.7-8.2); Triglycerides 67 mg/dL (30-150); eGFR > 60 See Note
[2024-04-24] MEDS: HEPARIN SOD INJ 5000 UNIT/ML VIAL SC ×2 (09:55→20:38)
[2024-04-24] MEDS: TAMSULOSIN HCL 0.4 MG CAPSULE PO (09:55)
--- NOTE | 2024-04-24 10:03 | PCS.ST ---
Swallow Evaluation completed. See report for details. Ok to advance diet to Dysphagia 3, chopped diet. NO s/s of aspiration. Functional oral phase.
[2024-04-24] MEDS: REMDESIVIR INJ 100 MG in SODIUM CHLORIDE 0.9% 100 ML IV (14:11)
--- NOTE | 2024-04-24 15:37 | ESPR_ITS ---
Documentation for date of: 04/24/24 Subjective Subjective Interval history: 04/24/2024: No acute overnight events to report. Patient seen and examined in hospital with significant improvement in presenting symptoms. Patient is more awake and alert and answering questions appropriately. Will continue to monitor patient and to look into SNF placement. Exam Vital Signs Temp Pulse Resp BP Pulse Ox O2 Del Method O2 Flow Rate 99.1 F 68 18 124/67 95 Room Air 1 04/24/24 12:00 04/24/24 12:00 04/24/24 12:04/24/24 12:04/24/24 12:04/24/24 12:04/24/24 12:00 Narrative Exam Physical Exam: GENERAL: Awake, answering questions appropriately, appears stated age HEENT: NC/AT. Moist mucosa. PERRLA/EOMI. CARDIO: Heart RRR, no obvious murmurs, no JVD. PULM: Nonproductive coughing, no signs of visible SOB. Lungs CTA B/L. No Rales, wheezing or rhonchi auscultated GI: Abdomen soft, NT, +BS. Presence of ventral hernia SKIN/MSK/EXT: No wounds/discoloration/rashes/edema/amputations. +Pedal pulses present B/L. NEURO: Oriented x3, pill-rolling tremor noted bilateral upper extremities less obvious with all medications on board, no focal neurologic deficits Objective Labs 04/25/24 05:10 04/25/24 05:10 Labs: Laboratory Results - last 24 hr 04/24/24 04:32 WBC 6.6 RBC 4.36 L Hgb 13.0 L Hct 39.8 L MCV 91 MCH 29.8 MCHC 32.7 RDW Std Deviation 43.3 Plt Count 103 L Neut % (Auto) 71 Lymph % (Auto) 11 Power % (Auto) 17 H Eos % (Auto) 0 Baso % (Auto) 0 Neut # (Auto) 4.7 Lymph # (Auto) 0.8 L Power # (Auto) 1.1 H Eos # (Auto) 0.0 Baso # (Auto) 0.0 Immature Gran # (Auto) 0.03 H Absolute Nucleated RBC 0.00 Immature Gran % 1 H Nucleated RBC % 0 Sodium 142 Potassium 3.6 D Chloride 106 Carbon Dioxide 25.6 Anion Gap 10 BUN 16 Creatinine 1.0 Estim Creat Clear Calc 72.0 eGFR > 60 BUN/Creatinine Ratio [address] Glu mg/dL 111 Hemoglobin A1c 5.5 Calculated Osmolality 285 Calcium 8.8 Corrected Calcium 8.8 Phosphorus 4.8 Magnesium 1.9 Total Bilirubin 0.6 AST 14 ALT 13 Alkaline Phosphatase 50 Total Protein 6.5 Albumin 4.0 Globulin 2.5 Albumin/Globulin Ratio 1.6 Triglycerides 67 Cholesterol 119 L LDL Cholesterol, Calc 65 HDL Cholesterol 41 Cholesterol/HDL Ratio 2.9 L Quality Measures Quality Measures none Advance care planning discussed with:: patient and spouse Assessment & Plan Assessment Current Active Medications: Generic Name Dose Route Start Last Admin Trade Name Freq PRN Reason Stop Dose Admin Acetaminophen 650 mg 04/23/24 16:09 04/24/24 00:16 Acetaminophen 325 Mg Tablet PO 05/23/24 16:08 650 mg Q6H PRN Administration Pain 1-3 and/or Fever >100.1 Dextrose 25 ml 04/23/24 16:09 Dextrose 50%-Water Inj 50 Ml Syringe IV 05/23/24 16:08 Q15MIN PRN BG 50-70 responsive npo pt Dextrose 50 ml 04/23/24 16:09 Dextrose 50%-Water Inj 50 Ml Syringe IV 05/23/24 16:08 Q15MIN PRN BG <50 OR BG <70 & pt unresponsive Glucagon 1 mg 04/23/24 16:09 Glucagon Inj 1 Mg Vial IM Q15MIN PRN BG <70, and no IV access Heparin Sodium (Porcine) 5,000 unit 04/23/24 21:00 04/24/24 09:55 Heparin Sod Inj 5000 Unit/Ml Vial SC 05/07/24 20:59 5,000 unit Q12HR FERNANDO Administration Remdesivir 100 mg/ Sodium 100 mls @ 100 mls/hr 04/24/24 14:00 04/24/24 14:11 Chloride IV 04/25/24 14:59 100 mls/hr Q24H NR Administration Protocol Insulin Human Lispro 0 unit 04/23/24 17:00 04/24/24 11:16 Insulin Lispro (Admelog) 1 Unit/0.01 Ml Unit SC 05/23/24 16:59 Not Given AC FERNANDO Protocol Melatonin 9 mg 04/23/24 21:00 04/23/24 22:02 Melatonin 3 Mg Tablet PO 05/23/24 20:59 9 mg HS FERNANDO Administration Home Medication- 1 cap 04/23/24 16:15 04/24/24 14:12 Please Speak With PO 05/23/24 16:14 Not Given Patient Caregiver To TID FERNANDO Have Rx Brought To [facility] Home Medication- 145 mcg 04/24/24 09:00 04/24/24 09:56 Please Speak With PO 05/24/24 08:59 Not Given Patient Caregiver To [facility] Have Rx Brought To [facility] Ondansetron HCl 4 mg 04/23/24 16:09 Ondansetron Inj 2 Mg/Ml Inj 2 Ml IV 05/23/24 16:08 Q6H PRN NAUSEA OR VOMITING Protocol Ropinirole HCl 0.5 mg 04/24/24 09:00 04/24/24 09:56 Ropinirole Hcl 0.5 Mg Tablet PO 05/24/24 08:59 Not Given QAM [facility] Sennosides 1 tab 04/23/24 16:09 Senna Tablet PO 05/23/24 16:08 QDAY PRN constipation Protocol Tamsulosin HCl 0.4 mg 04/24/24 09:00 04/24/24 09:55 Tamsulosin Hcl 0.4 Mg Capsule PO 05/24/24 08:59 0.4 mg DAILY FERNANDO Administration Tizanidine HCl 4 - 8 mg 04/23/24 21:00 04/23/24 22:03 Tizanidine Hcl 2 Mg Tablet PO 05/23/24 20:59 4 mg HS FERNANDO Administration Plan 74-year-old male with a past medical history of diabetes, Parkinson's disease, prostatomegaly, and urinary retention s/p UroLift procedure presented to the ED with chief complaints of generalized weakness, fever, and unproductive cough will be admitted for COVID 19 exacerbation and will be treated with remdesivir regimen; will have further discussion with patient's family regarding eventual discharge and placement. #COVID 19 Infection Patient presenting from home with symptoms of subjective fever, cough and lethargy Per patient's , who is his primary medical data analyst also, patient, patient's has been feeling this way for several days Also, patient's family members in the household have also been COVID-positive and are symptomatic Patient's also states that she is currently unable to effectively take care of patient In the ED, patient does not require any supplemental oxygenation; however, he does have risk factors including diabetes PT eval, swallow eval - completed Plan: Moderate degree remdesivir treatment for COVID Monitor oxygenation requirements SNF placement ongoing #Parkinson's Disease Patient has longstanding history of Parkinson disease; on home carbidopa/levodopa, ropinirole and tizanidine Plan: Continue home medications #Non-insulin dependent type 2 diabetes mellitus ASCVD 14.3-8.1% Risk of cardiovascular event (coronary or stroke or non- fatal [place] or stroke) in next 10 years. Last A1c of 5.5 Triglyceride 67, cholesterol 119, LDL 65, HDL 41 Patient is not on any home medications Plan: Sliding scale insulin Patient could benefit from moderate-high intensity statin; will consider adding #Hypertension Patient is mildly hypertensive with a systolic blood pressure 155, diastolic 73 Likely secondary to acutely ill status Patient does not have any home antihypertensive medication Plan: Monitor blood pressure #BPH Patient has long standing history of BPH, on home tamsulosin 0.4 mg Plan: Continue home medications #History of constipation, IBS-C Patient on Linzess 145 mcg; states 30 minutes before first meal in the a.m. Plan: Continue home medication Hospital Management: Lines: PIV Bowel: Senna Diet: Clear liquid diet if patient passes nurse swallow screen, pending speech eval to advance GI prophylaxis: Not needed DVT prophylaxis: Heparin subcu Dispo: Treatment for COVID exacerbation Code: Full Patient seen and examined with attending Dr. Jonnathan Aldridge, PGY-1 Attending Provider Attestation/Addendum I have discussed and was present for the essential components of the history, physical examination, diagnosis, and treatment plan with the resident. I agree with the patient's care as documented by the resident and amended herein by me. Eder De Santiago DO. Patient stable, SNF placement pending Although this document has been carefully reviewed, there may still be some phonetic and other typographical errors. These errors are purely grammatical due to imperfections in the software program and should not be construed in any way to compromise the substance of the patient's medical care during this visit.
--- NOTE | 2024-04-24 19:08 | PC.NURSE ---
RN asked the pt to bring in home medications since the pharmacy does not carry his meds. states i forgot them, he doesn't really need them RN educated the on the importance of bringing the pt medications in so the pt can remain on his medication regimen. to bring pt medications
--- NOTE | 2024-04-24 19:53 | PC.NURSE ---
Contacted hospitalist Dr. Bravo regarding patient's carvidopa levidopa order. Made MD aware that the dosage ordred for the patient is unavailable and the family member of the patient was also made aware if they could bring the patient's medication to the hospital from home.
--- NOTE | 2024-04-24 20:00 | PC.NURSE ---
Patient's arrive at unit to give the nurse his home medication (Linzess). Patient's home medication was then given to pharmacy for verification. Patient's family member also needs to bring patient's carvidopa levidopa medication from home. is aware. stated to nurse I think he really dosen't need the carvidopa . MD Dr. Bravo was made aware regarding patient's medication.
[2024-04-24] MEDS: MELATONIN 3 MG TABLET 9 MG PO (20:37)
[2024-04-24] MEDS: tiZANidine HCL 2 MG TABLET PO (20:38)
[2024-04-25] VITALS (7 sets, daily range): BP systolic 125–145; BP diastolic 79–89; PULSE 20–87; RESP 16–20; TEMP 36.3–37; O2SAT 95–99; BMI 11.0
[2024-04-25] MEDS: LINZESS 145 MCG PO (05:33)
[2024-04-25 06:14] LABS: Basophils % (Auto) 0 % (0-2.5); Eosinophils % (Auto) 0 % (0-10); Hematocrit 39.2 % (41.0-53.0); Hemoglobin 13.4 g/dL (13.5-16.0); Immature Granulocytes % (Auto) 0 % (0-0); Immature Granulocytes Auto 0.01 Thou/mm3 (0.00-0.00); Lymphocytes # (Auto) 0.8 Thou/mm3 (1.0-4.8); Lymphocytes % (Auto) 13 % (10-50); Mean Corpuscular HGB Conc 34.2 g/dl (31.0-37.0); Mean Corpuscular Hemoglobin 30.5 pg (25.0-35.0); Mean Corpuscular Volume 89 fL (80-100); Monocytes # (Auto) 0.9 Thou/mm3 (0.0-0.8); Monocytes % (Auto) 15 % (0-12); Neutrophils # (Auto) 4.2 Thou/mm3 (1.8-7.7); Neutrophils % (Auto) 71 % (37-80); Nucleated Red Blood Cell % 0 /100 WBC (0); Platelet Count 130 Thou/mm3 (140-440); RDW Standard Deviation 42.6 fL (35.1-43.9); Red Blood Count 4.39 Miln/mm3 (4.50-5.90); White Blood Count 5.8 Thou/mm3 (3.8-10.6)
[2024-04-25 06:39] LABS: Alanine Aminotransferase 14 U/L (10-49); Albumin/Globulin Ratio 1.6 (1.2-2.2); Alkaline Phosphatase 48 U/L (46-116); Anion Gap 9 (7-16); Aspartate Amino Transferase 25 U/L (0-34); BUN/Creatinine Ratio 26 Ratio (12-20); Bilirubin,Total 0.7 mg/dL (0.3-1.2); Blood Urea Nitrogen 23 mg/dL (9-23); Carbon Dioxide 26.1 mMol/L (20.0-31.0); Chloride 107 mMol/L (98-107); Creatinine (Component) 0.9 mg/dL (0.6-1.3); Globulin 2.5 gm/dL (2.3-3.5); Glucose 108 mg/dL (74-106); Osmolality,Calculated 287 (275-295); Potassium 3.7 mMol/L (3.4-5.1); Sodium 142 mMol/L (136-145); Total Protein 6.5 gm/dL (5.7-8.2); eGFR > 60 See Note
[2024-04-25] MEDS: rOPINIRole HCL 0.25 MG TABLET 0.5 MG PO (10:32)
[2024-04-25] MEDS: HEPARIN SOD INJ 5000 UNIT/ML VIAL SC ×2 (10:32→22:16)
[2024-04-25] MEDS: TAMSULOSIN HCL 0.4 MG CAPSULE PO (10:32)
--- NOTE | 2024-04-25 11:20 | PC.SS ---
SS has sent inquiry to the local SNF using [facility]. PASRR assessment has been completed
[2024-04-25] MEDS: ACETAMINOPHEN 325 MG TABLET 650 MG PO (14:06)
[2024-04-25] MEDS: RYTARY PO ×2 (14:07→22:10)
[2024-04-25] MEDS: REMDESIVIR INJ 100 MG in SODIUM CHLORIDE 0.9% 100 ML IV (14:31)
--- NOTE | 2024-04-25 15:21 | ESPR_ITS ---
Documentation for date of: 04/25/24 Subjective Subjective Interval history: 04/26/2024: No overnight events. Patient seen and examined, appears to be making steady progress. Patient will need to be quarantined for a total of 14 days before he can be discharged to a SNF. Family made aware of this and the management. Patient will also be started on dexamethasone 6mg for a total of 10 days for COVID infection. Will continue to monitor for any acute changes. Exam Vital Signs Temp Pulse Resp BP Pulse Ox O2 Del Method O2 Flow Rate 98.5 F 83 16 140/83 H 95 Nasal Cannula 2 04/25/24 12:00 04/25/24 12:00 04/25/24 12:00 04/25/24 12:00 04/25/24 12:00 04/25/24 12:00 04/25/24 12:00 Narrative Exam Physical Exam: GENERAL: Awake, answering questions appropriately, appears stated age HEENT: NC/AT. Moist mucosa. PERRLA/EOMI. CARDIO: Heart RRR, no obvious murmurs, no JVD. PULM: Nonproductive coughing, no signs of visible SOB. Lungs CTA B/L. No Rales, wheezing or rhonchi auscultated GI: Abdomen soft, NT, +BS. Presence of ventral hernia SKIN/MSK/EXT: No wounds/discoloration/rashes/edema/amputations. +Pedal pulses present B/L. NEURO: Oriented x3, pill-rolling tremor noted bilateral upper extremities less obvious with all medications on board, no focal neurologic deficits Objective Labs 04/25/24 05:10 04/25/24 05:10 Labs: Laboratory Results - last 24 hr 04/25/24 05:10 WBC 5.8 RBC 4.39 L Hgb 13.4 L Hct 39.2 L MCV 89 MCH 30.5 MCHC 34.2 RDW Std Deviation 42.6 Plt Count 130 L D Neut % (Auto) 71 Lymph % (Auto) 13 [place] % (Auto) 15 H Eos % (Auto) 0 Baso % (Auto) 0 Neut # (Auto) 4.2 Lymph # (Auto) 0.8 L [place] # (Auto) 0.9 H Eos # (Auto) 0.0 Baso # (Auto) 0.0 Immature Gran # (Auto) 0.01 H Absolute Nucleated RBC 0.00 Immature Gran % 0 Nucleated RBC % 0 Sodium 142 Potassium 3.7 Chloride 107 Carbon Dioxide 26.1 Anion Gap 9 BUN 23 Creatinine 0.9 Estim Creat Clear Calc 80.0 eGFR > 60 BUN/Creatinine Ratio 26 H Glucose 108 H Calculated Osmolality 287 Calcium 9.0 Corrected Calcium 9.0 Total Bilirubin 0.7 AST 25 ALT 14 Alkaline Phosphatase 48 Total Protein 6.5 Albumin 4.0 Globulin 2.5 Albumin/Globulin Ratio 1.6 Quality Measures Quality Measures none Advance care planning discussed with:: patient and spouse Assessment & Plan Assessment Current Active Medications: Generic Name Dose Route Start Last Admin Trade Name Freq PRN Reason Stop Dose Admin Acetaminophen 650 mg 04/23/24 16:09 04/25/24 14:06 Acetaminophen 325 Mg Tablet PO 05/23/24 16:08 650 mg Q6H PRN Administration Pain 1-3 and/or Fever >100.1 Linzess 145 Mcg 0 ea 04/25/24 06:00 04/25/24 05:33 Capsules PO 05/25/24 05:59 1 capsule ACBR FERNANDO Administration Rytary (Carbidopa/ 0 ea 04/25/24 14:00 04/25/24 14:07 Levodopa) 61.25 Mg/ PO 05/25/24 13:59 1 capsule 245 Mg Extended TID FERNANDO Administration Release Capsules Dextrose 25 ml 04/23/24 16:09 Dextrose 50%-Water Inj 50 Ml Syringe IV 05/23/24 16:08 Q15MIN PRN BG 50-70 responsive npo pt Dextrose 50 ml 04/23/24 16:09 Dextrose 50%-Water Inj 50 Ml Syringe IV 05/23/24 16:08 Q15MIN PRN BG <50 OR BG <70 & pt unresponsive Glucagon 1 mg 04/23/24 16:09 Glucagon Inj 1 Mg Vial IM Q15MIN PRN BG <70, and no IV access Heparin Sodium (Porcine) 5,000 unit 04/23/24 21:00 04/25/24 10:32 Heparin Sod Inj 5000 Unit/Ml Vial SC 05/07/24 20:59 5,000 unit Q12HR FERNANDO Administration Insulin Human Lispro 0 unit 04/23/24 17:00 04/25/24 11:35 Insulin Lispro (Admelog) 1 Unit/0.01 Ml Unit SC 05/23/24 16:59 Not Given AC FERNANDO Protocol Melatonin 9 mg 04/23/24 21:00 04/24/24 20:37 Melatonin 3 Mg Tablet PO 05/23/24 20:59 9 mg HS FERNANDO Administration Ondansetron HCl 4 mg 04/23/24 16:09 Ondansetron Inj 2 Mg/Ml Inj 2 Ml IV 05/23/24 16:08 Q6H PRN NAUSEA OR VOMITING Protocol Ropinirole HCl 0.5 mg 04/25/24 09:45 04/25/24 10:32 Ropinirole Hcl 0.25 Mg Tablet PO 05/24/24 08:59 0.5 mg QAM FERNANDO Administration Sennosides 1 tab 04/23/24 16:09 Senna Tablet PO 05/23/24 16:08 QDAY PRN constipation Protocol Tamsulosin HCl 0.4 mg 04/24/24 09:00 04/25/24 10:32 Tamsulosin Hcl 0.4 Mg Capsule PO 05/24/24 08:59 0.4 mg DAILY FERNANDO Administration Tizanidine HCl 4 - 8 mg 04/23/24 21:00 04/24/24 20:38 Tizanidine Hcl 2 Mg Tablet PO 05/23/24 20:59 4 mg HS FERNANDO Administration Plan 74-year-old male with a past medical history of diabetes, Parkinson's disease, prostatomegaly, and urinary retention s/p UroLift procedure presented to the ED with chief complaints of generalized weakness, fever, and unproductive cough will be admitted for COVID 19 exacerbation and will be treated with remdesivir regimen; will have further discussion with patient's family regarding eventual discharge and placement. #COVID 19 Infection Patient presenting from home with symptoms of subjective fever, cough and lethargy Per patient's , who is his primary county administrator also, patient, patient's has been feeling this way for several days Also, patient's family members in the household have also been COVID-positive and are symptomatic Patient's also states that she is currently unable to effectively take care of patient In the ED, patient does not require any supplemental oxygenation; however, he does have risk factors including diabetes PT eval, swallow eval - completed Remdesevir completed Plan: Dexamethasone 6mg started for a total of 10 days Monitor oxygenation requirements SNF placement ongoing; needs total of 14 day quarantine prior to SNF placement #Parkinson's Disease Patient has longstanding history of Parkinson disease; on home carbidopa/levodopa, ropinirole and tizanidine Plan: Continue home medications #Non-insulin dependent type 2 diabetes mellitus ASCVD 14.3-8.1% Risk of cardiovascular event (coronary or stroke or non- fatal PR or stroke) in next 10 years. Last A1c of 5.5 Triglyceride 67, cholesterol 119, LDL 65, HDL 41 Patient is not on any home medications Plan: Sliding scale insulin Patient could benefit from moderate-high intensity statin; will consider adding #Hypertension Patient is mildly hypertensive with a systolic blood pressure 155, diastolic 73 Likely secondary to acutely ill status Patient does not have any home antihypertensive medication Plan: Monitor blood pressure #BPH Patient has long standing history of BPH, on home tamsulosin 0.4 mg Plan: Continue home medications #History of constipation, IBS-C Patient on Linzess 145 mcg; states 30 minutes before first meal in the a.m. Plan: Continue home medication Hospital Management: Lines: PIV Bowel: Senna Diet: Carb consistent, dysphagia 3 GI prophylaxis: Not needed DVT prophylaxis: Heparin subcu Dispo: Treatment for COVID exacerbation Code: Full Patient seen and examined with attending Dr. Jonnathan Aldridge, PGY-1 Attending Provider Attestation/Addendum I have discussed and was present for the essential components of the history, physical examination, diagnosis, and treatment plan with the resident. I agree with the patient's care as documented by the resident and amended herein by me. Eder De Santiago DO. Vital signs stable, patient afebrile overnight, patient remains on NC 2 L, SpO2 97% at time of bedside visit. Unfortunately SNF placement will be needed however the soonest available is likely 05/05 due to COVID quarantine being required by SNF. Will continue supportive management, may start dexamethasone if the patient's O2 requirement increased. Continue to monitor closely and update the patient's this afternoon Although this document has been carefully reviewed, there may still be some phonetic and other typographical errors. These errors are purely grammatical due to imperfections in the software program and should not be construed in any way to compromise the substance of the patient's medical care during this visit.
--- NOTE | 2024-04-25 15:42 | PC.SS ---
Pt is COVID positive.? SS met with to discuss patient's d/c plan.? Pt is alert/oriented.? Pt is currently confused and per , that is not patient's baseline.? Pt was admitted for COVID +.? ? confirmed patient's demographic and contact information is correct on facesheet.? Pt resides with .? Pt ambulates using a walker.? Pt requires assistance with his ADLS.? takes care of pt at home. ADLs.? Patient utilizes [facility].? is patient's medical decision maker if he is unable.? SS provided with verbal options for d/c to home or SNF.? 's choice is for pt to d/c to SNF.? SS and met with Sayda from [facility] who states they can accept pt on 05-04-24 after 10 days of quarantine.? [facility] states pt followed up with PCP in December,. D/C plan:? SNF Next of Kin: Bhumika Stevens, , phone# [phone] PCP:? Dr. Mosqueda Address:? Correct on facesheet
[2024-04-25] MEDS: DEXAMETHASONE SOD PHOS INJ 10 MG/ML VIAL 6 MG IV (17:37)
[2024-04-25] MEDS: tiZANidine HCL 2 MG TABLET PO (22:09)
[2024-04-25] MEDS: MELATONIN 3 MG TABLET 9 MG PO (22:10)
[2024-04-26] VITALS (8 sets, daily range): BP systolic 122–156; BP diastolic 70–86; PULSE 55–88; RESP 15–20; TEMP 36.2–37.1; O2SAT 94–100
[2024-04-26] MEDS: LINZESS 145 MCG PO (05:23)
[2024-04-26] MEDS: RYTARY PO ×3 (05:24→21:59)
[2024-04-26 05:50] LABS: Basophils % (Auto) 0 % (0-2.5); Eosinophils % (Auto) 0 % (0-10); Hematocrit 41.1 % (41.0-53.0); Hemoglobin 13.6 g/dL (13.5-16.0); Immature Granulocytes % (Auto) 0 % (0-0); Immature Granulocytes Auto 0.01 Thou/mm3 (0.00-0.00); Lymphocytes # (Auto) 0.5 Thou/mm3 (1.0-4.8); Lymphocytes % (Auto) 14 % (10-50); Mean Corpuscular HGB Conc 33.1 g/dl (31.0-37.0); Mean Corpuscular Hemoglobin 29.4 pg (25.0-35.0); Mean Corpuscular Volume 89 fL (80-100); Monocytes # (Auto) 0.4 Thou/mm3 (0.0-0.8); Monocytes % (Auto) 13 % (0-12); Neutrophils # (Auto) 2.5 Thou/mm3 (1.8-7.7); Neutrophils % (Auto) 72 % (37-80); Nucleated Red Blood Cell % 0 /100 WBC (0); Platelet Count 123 Thou/mm3 (140-440); RDW Standard Deviation 42.1 fL (35.1-43.9); Red Blood Count 4.63 Miln/mm3 (4.50-5.90); White Blood Count 3.4 Thou/mm3 (3.8-10.6)
[2024-04-26 06:33] LABS: Alanine Aminotransferase < 7 U/L (10-49); Albumin/Globulin Ratio 1.6 (1.2-2.2); Alkaline Phosphatase 47 U/L (46-116); Anion Gap 9 (7-16); Aspartate Amino Transferase 21 U/L (0-34); BUN/Creatinine Ratio 25 Ratio (12-20); Bilirubin,Total 0.4 mg/dL (0.3-1.2); Blood Urea Nitrogen 20 mg/dL (9-23); Carbon Dioxide 27.7 mMol/L (20.0-31.0); Chloride 105 mMol/L (98-107); Creatinine (Component) 0.8 mg/dL (0.6-1.3); Globulin 2.5 gm/dL (2.3-3.5); Glucose 162 mg/dL (74-106); Osmolality,Calculated 289 (275-295); Potassium 4.1 mMol/L (3.4-5.1); Sodium 142 mMol/L (136-145); Total Protein 6.5 gm/dL (5.7-8.2); eGFR > 60 See Note
[2024-04-26] MEDS: INSULIN LISPRO (AdmeLOG) 1 UNIT/0.01 ML UNIT SC ×2 (07:33→17:36)
[2024-04-26] MEDS: DEXAMETHASONE SOD PHOS INJ 10 MG/ML VIAL 6 MG IV (11:03)
[2024-04-26] MEDS: HEPARIN SOD INJ 5000 UNIT/ML VIAL SC ×2 (11:04→21:58)
[2024-04-26] MEDS: TAMSULOSIN HCL 0.4 MG CAPSULE PO (11:04)
[2024-04-26] MEDS: rOPINIRole HCL 0.25 MG TABLET 0.5 MG PO (11:04)
--- NOTE | 2024-04-26 11:05 | PC.SS ---
Addendum entered by NAYELY Macdonald 04/26/24 16:09: SS update: CLINICAL LIAISON submitted clinicals to [facility] to initiate appeal. Case under: [id number] Bed side nurse and medical team updated on appeal. Addendum entered by NAYELY Macdonald 04/26/24 15:07: SS update: D/C orders are in. Patient's , Bhumika , informed she does not agree with the d/c and would like to appeal the d/c. Provided Bhumika with [facility]'s contact number and explained the process of an appeal. Bhumika provided verbal consent to proceed with appeal and informed she would call [facility]. Provided Bhumika with direct contact number for questions or assistance in the process. Addendum entered by NAYELY Macdonald 04/26/24 14:44: SS update: spoke with patient's Bhumika, she inform she would like SNF until patient is medically stable to return home. Explained to her that [facility] has an isolation bed available if she was agreeable. Patient's expressed some concerns with patient's lungs and shared she would like a medical update from the Doctor. Updated resident DR on patient's request. Addendum entered by NAYELY Macdonald 04/26/24 14:25: Rounding note: Patient is covid positive. Pending patient's to discuss d/c plan. Addendum entered by NAYELY Macdonald 04/26/24 12:41: SS update: attempted to speak with patient's for an update. Left a voicemail. Bed side nurse aware. Original Note: SS update: was informed [facility] has an isolation bed available. Attempted contact with patient's , to determine if they would be agreeable for patient to d/c to [facility] as they have isolation bed available. Pending response.
--- NOTE | 2024-04-26 11:54 | PD.RESPRO ---
Documentation for date of: 04/26/24 Subjective Subjective Interval history: 04/26/2024: No overnight events. Patient seen and examined, continues to be making steady progress. Patient continues to be on dexamethasone 6mg for a total of 10 days for COVID infection. Will continue to monitor for any acute changes. Overall patient appears much better than when he first presented. Exam Vital Signs Temp Pulse Resp BP Pulse Ox O2 Del Method O2 Flow Rate 97.4 F 72 15 130/83 94 L Nasal Cannula 2 04/26/24 08:00 04/26/24 08:00 04/26/24 08:00 04/26/24 08:00 04/26/24 08:00 04/26/24 08:00 04/26/24 08:00 Narrative Exam Physical Exam: GENERAL: Awake, answering questions appropriately, appears stated age HEENT: NC/AT. Moist mucosa. PERRLA/EOMI. CARDIO: Heart RRR, no obvious murmurs, no JVD. PULM: No coughing, no signs of visible SOB. Lungs CTA B/L. No Rales, wheezing or rhonchi auscultated GI: Abdomen soft, NT, +BS. Presence of ventral hernia SKIN/MSK/EXT: No wounds/discoloration/rashes/edema/amputations. +Pedal pulses present B/L. NEURO: Oriented x3, pill-rolling tremor noted bilateral upper extremities less obvious with all medications on board, no focal neurologic deficits Objective Labs 04/26/24 05:09 04/26/24 05:09 Labs: Laboratory Results - last 24 hr 04/26/24 05:09 WBC 3.4 L D RBC 4.63 Hgb 13.6 Hct 41.1 MCV 89 MCH 29.4 MCHC 33.1 RDW Std Deviation 42.1 Plt Count 123 L Neut % (Auto) 72 Lymph % (Auto) 14 [place] % (Auto) 13 H Eos % (Auto) 0 Baso % (Auto) 0 Neut # (Auto) 2.5 Lymph # (Auto) 0.5 L [place] # (Auto) 0.4 Eos # (Auto) 0.0 Baso # (Auto) 0.0 Immature Gran # (Auto) 0.01 H Absolute Nucleated RBC 0.00 Immature Gran % 0 Nucleated RBC % 0 Sodium 142 Potassium 4.1 Chloride 105 Carbon Dioxide 27.7 Anion Gap 9 BUN 20 Creatinine 0.8 Estim Creat Clear Calc 90.0 eGFR > 60 BUN/Creatinine Ratio 25 H Glucose 162 H D Calculated Osmolality 289 Calcium 9.0 Corrected Calcium 9.0 Total Bilirubin 0.4 AST 21 ALT < 7 L Alkaline Phosphatase 47 Total Protein 6.5 Albumin 4.0 Globulin 2.5 Albumin/Globulin Ratio 1.6 Quality Measures Quality Measures none Advance care planning discussed with:: patient and spouse Assessment & Plan Assessment Current Active Medications: Generic Name Dose Route Start Last Admin Trade Name Freq PRN Reason Stop Dose Admin Acetaminophen 650 mg 04/23/24 16:09 04/25/24 14:06 Acetaminophen 325 Mg Tablet PO 05/23/24 16:08 650 mg Q6H PRN Administration Pain 1-3 and/or Fever >100.1 Linzess 145 Mcg 0 ea 04/25/24 06:00 04/26/24 05:23 Capsules PO 05/25/24 05:59 1 capsule ACBR FERNANDO Administration Rytary (Carbidopa/ 0 ea 04/25/24 14:00 04/26/24 05:24 Levodopa) 61.25 Mg/ PO 05/25/24 13:59 1 capsule 245 Mg Extended TID FERNANDO Administration Release Capsules Dexamethasone Sodium Phosphate 6 mg 04/25/24 16:30 04/26/24 11:03 Dexamethasone Sod Phos Inj 10 Mg/Ml Vial IV 05/05/24 16:29 6 mg QDAY FERNANDO Administration Dextrose 25 ml 04/23/24 16:09 Dextrose 50%-Water Inj 50 Ml Syringe IV 05/23/24 16:08 Q15MIN PRN BG 50-70 responsive npo pt Dextrose 50 ml 04/23/24 16:09 Dextrose 50%-Water Inj 50 Ml Syringe IV 05/23/24 16:08 Q15MIN PRN BG <50 OR BG <70 & pt unresponsive Glucagon 1 mg 04/23/24 16:09 Glucagon Inj 1 Mg Vial IM Q15MIN PRN BG <70, and no IV access Heparin Sodium (Porcine) 5,000 unit 04/23/24 21:00 04/26/24 11:04 Heparin Sod Inj 5000 Unit/Ml Vial SC 05/07/24 20:59 5,000 unit Q12HR FERNANDO Administration Insulin Human Lispro 0 unit 04/23/24 17:00 04/26/24 11:13 Insulin Lispro (Admelog) 1 Unit/0.01 Ml Unit SC 05/23/24 16:59 Not Given AC FERNANDO Protocol Melatonin 9 mg 04/23/24 21:00 04/25/24 22:10 Melatonin 3 Mg Tablet PO 05/23/24 20:59 9 mg HS FERNANDO Administration Ondansetron HCl 4 mg 04/23/24 16:09 Ondansetron Inj 2 Mg/Ml Inj 2 Ml IV 05/23/24 16:08 Q6H PRN NAUSEA OR VOMITING Protocol Ropinirole HCl 0.5 mg 04/25/24 09:45 04/26/24 11:04 Ropinirole Hcl 0.25 Mg Tablet PO 05/24/24 08:59 0.5 mg QAM FERNANDO Administration Sennosides 1 tab 04/23/24 16:09 Senna Tablet PO 05/23/24 16:08 QDAY PRN constipation Protocol Tamsulosin HCl 0.4 mg 04/24/24 09:00 04/26/24 11:04 Tamsulosin Hcl 0.4 Mg Capsule PO 05/24/24 08:59 0.4 mg DAILY FERNANDO Administration Tizanidine HCl 4 - 8 mg 04/23/24 21:00 04/25/24 22:09 Tizanidine Hcl 2 Mg Tablet PO 05/23/24 20:59 4 mg HS FERNANDO Administration Plan 74-year-old male with a past medical history of diabetes, Parkinson's disease, prostatomegaly, and urinary retention s/p UroLift procedure presented to the ED with chief complaints of generalized weakness, fever, and unproductive cough will be admitted for COVID 19 exacerbation and will be treated with remdesivir regimen; will have further discussion with patient's family regarding eventual discharge and placement. #COVID 19 Infection Patient presenting from home with symptoms of subjective fever, cough and lethargy Per patient's , who is his primary ship engineer also, patient, patient's has been feeling this way for several days Also, patient's family members in the household have also been COVID-positive and are symptomatic Patient's also states that she is currently unable to effectively take care of patient In the ED, patient does not require any supplemental oxygenation; however, he does have risk factors including diabetes PT eval, swallow eval - completed Remdesevir completed Plan: Continue dexamethasone 6mg started for a total of 10 days Monitor oxygenation requirements SNF placement ongoing; needs total of 14 day quarantine prior to SNF placement #Parkinson's Disease Patient has longstanding history of Parkinson disease; on home carbidopa/levodopa, ropinirole and tizanidine Plan: Continue home medications #Non-insulin dependent type 2 diabetes mellitus ASCVD 14.3-8.1% Risk of cardiovascular event (coronary or stroke or non-fatal [place] or stroke) in next 10 years. Last A1c of 5.5 Triglyceride 67, cholesterol 119, LDL 65, HDL 41 Patient is not on any home medications Plan: Sliding scale insulin Patient could benefit from moderate-high intensity statin; will consider adding #Hypertension Patient is mildly hypertensive with a systolic blood pressure 155, diastolic 73 Likely secondary to acutely ill status Patient does not have any home antihypertensive medication Plan: Monitor blood pressure #BPH Patient has long standing history of BPH, on home tamsulosin 0.4 mg Plan: Continue home medications #History of constipation, IBS-C Patient on Linzess 145 mcg; states 30 minutes before first meal in the a.m. Plan: Continue home medication Hospital Management: Lines: PIV Bowel: Senna Diet: Carb consistent, dysphagia 3 GI prophylaxis: Not needed DVT prophylaxis: Heparin subcu Dispo: Pending SNF admission due to COVID quarantine requirements Code: Full Patient seen and examined with attending Dr. Jonnathan Aldridge, PGY-1 Attending Provider Attestation/Addendum I have discussed and was present for the essential components of the history, physical examination, diagnosis, and treatment plan with the resident. I agree with the patient's care as documented by the resident and amended herein by me. Eder De Santiago DO. Patient seen and evaluated this AM. Vital signs stable, patient afebrile overnight, SpO2 94% on 2 L. Patient much more awake and alert today, will continue dexamethasone 6 mg daily, discharge after quarantine period ends, likely around / to SNF or possibly back home if his is able to take care of him. Although this document has been carefully reviewed, there may still be some phonetic and other typographical errors. These errors are purely grammatical due to imperfections in the software program and should not be construed in any way to compromise the substance of the patient's medical care during this visit.
--- NOTE | 2024-04-26 17:06 | PC.NURSE ---
appealed discharge Kathy social media director notified me. DC is pending appeal. Will continue to monitor patient.
[2024-04-26] MEDS: tiZANidine HCL 2 MG TABLET PO (21:55)
[2024-04-26] MEDS: MELATONIN 3 MG TABLET 9 MG PO (21:56)
[2024-04-27] VITALS (8 sets, daily range): BP systolic 113–141; BP diastolic 66–83; PULSE 53–73; RESP 16–22; TEMP 36.2–37.1; O2SAT 92–99
[2024-04-27] MEDS: LINZESS 145 MCG PO (05:34)
[2024-04-27] MEDS: RYTARY PO ×2 (05:34→14:13)
[2024-04-27 05:55] LABS: Basophils % (Auto) 0 % (0-2.5); Eosinophils % (Auto) 0 % (0-10); Hematocrit 41.4 % (41.0-53.0); Hemoglobin 13.6 g/dL (13.5-16.0); Immature Granulocytes % (Auto) 0 % (0-0); Immature Granulocytes Auto 0.02 Thou/mm3 (0.00-0.00); Lymphocytes # (Auto) 0.8 Thou/mm3 (1.0-4.8); Lymphocytes % (Auto) 14 % (10-50); Mean Corpuscular HGB Conc 32.9 g/dl (31.0-37.0); Mean Corpuscular Hemoglobin 29.4 pg (25.0-35.0); Mean Corpuscular Volume 89 fL (80-100); Monocytes # (Auto) 0.7 Thou/mm3 (0.0-0.8); Monocytes % (Auto) 13 % (0-12); Neutrophils # (Auto) 4.1 Thou/mm3 (1.8-7.7); Neutrophils % (Auto) 73 % (37-80); Nucleated Red Blood Cell % 0 /100 WBC (0); Platelet Count 162 Thou/mm3 (140-440); RDW Standard Deviation 42.1 fL (35.1-43.9); Red Blood Count 4.63 Miln/mm3 (4.50-5.90); White Blood Count 5.6 Thou/mm3 (3.8-10.6)
[2024-04-27 06:38] LABS: Alanine Aminotransferase < 7 U/L (10-49); Albumin, Serum 3.9 gm/dL (3.4-4.8); Albumin/Globulin Ratio 1.6 (1.2-2.2); Alkaline Phosphatase 49 U/L (46-116); Anion Gap 8 (7-16); Aspartate Amino Transferase 16 U/L (0-34); BUN/Creatinine Ratio 26 Ratio (12-20); Bilirubin,Total 0.4 mg/dL (0.3-1.2); Blood Urea Nitrogen 18 mg/dL (9-23); Calcium 8.9 mg/dL (8.3-10.6); Carbon Dioxide 26.3 mMol/L (20.0-31.0); Chloride 107 mMol/L (98-107); Creatinine (Component) 0.7 mg/dL (0.6-1.3); Globulin 2.4 gm/dL (2.3-3.5); Glucose 130 mg/dL (74-106); Osmolality,Calculated 285 (275-295); Potassium 3.7 mMol/L (3.4-5.1); Sodium 141 mMol/L (136-145); Total Protein 6.3 gm/dL (5.7-8.2); eGFR > 60 See Note
--- NOTE | 2024-04-27 08:43 | PC.CC ---
Will [facility] [id number] status is Physician review completed per portal.
[2024-04-27] MEDS: DEXAMETHASONE SOD PHOS INJ 10 MG/ML VIAL 6 MG IV (10:13)
[2024-04-27] MEDS: rOPINIRole HCL 0.25 MG TABLET 0.5 MG PO (10:14)
[2024-04-27] MEDS: HEPARIN SOD INJ 5000 UNIT/ML VIAL SC (10:14)
[2024-04-27] MEDS: TAMSULOSIN HCL 0.4 MG CAPSULE PO (10:14)
--- NOTE | 2024-04-27 13:32 | PD.RESPRO ---
Documentation for date of: 04/27/24 Subjective Subjective Interval history: 04/27/2024: No overnight events. Patient seen and examined, continues to be making steady progress. Patient continues to be on dexamethasone 6mg for a total of 10 days for COVID infection. Will continue to monitor for any acute changes. Exam Vital Signs Temp Pulse Resp BP Pulse Ox O2 Del Method O2 Flow Rate 97.1 F 62 16 124/73 97 Room Air 2 04/27/24 12:00 04/27/24 12:00 04/27/24 12:04/27/24 12:04/27/24 12:04/27/24 12:04/27/24 04:05 Narrative Exam Physical Exam: GENERAL: Awake, answering questions appropriately, appears stated age HEENT: NC/AT. Moist mucosa. PERRLA/EOMI. CARDIO: Heart RRR, no obvious murmurs, no JVD. PULM: No coughing, no signs of visible SOB. Lungs CTA B/L. No Rales, wheezing or rhonchi auscultated GI: Abdomen soft, NT, +BS. Presence of ventral hernia SKIN/MSK/EXT: No wounds/discoloration/rashes/edema/amputations. +Pedal pulses present B/L. NEURO: Oriented x3, pill-rolling tremor noted bilateral upper extremities less obvious with all medications on board, no focal neurologic deficits Objective Labs 04/27/24 04:31 04/27/24 04:31 Labs: Laboratory Results - last 24 hr 04/27/24 04:31 WBC 5.6 D RBC 4.63 Hgb 13.6 Hct 41.4 MCV 89 MCH 29.4 MCHC 32.9 RDW Std Deviation 42.1 Plt Count 162 D Neut % (Auto) 73 Lymph % (Auto) 14 [place] % (Auto) 13 H Eos % (Auto) 0 Baso % (Auto) 0 Neut # (Auto) 4.1 Lymph # (Auto) 0.8 L [place] # (Auto) 0.7 Eos # (Auto) 0.0 Baso # (Auto) 0.0 Immature Gran # (Auto) 0.02 H Absolute Nucleated RBC 0.00 Immature Gran % 0 Nucleated RBC % 0 Sodium 141 Potassium 3.7 Chloride 107 Carbon Dioxide 26.3 Anion Gap 8 BUN 18 Creatinine 0.7 Estim Creat Clear Calc 103.0 eGFR > 60 BUN/Creatinine Ratio 26 H Glucose 130 H Calculated Osmolality 285 Calcium 8.9 Corrected Calcium 9.0 Total Bilirubin 0.4 AST 16 ALT < 7 L Alkaline Phosphatase 49 Total Protein 6.3 Albumin 3.9 Globulin 2.4 Albumin/Globulin Ratio 1.6 Quality Measures Quality Measures none Advance care planning discussed with:: patient and spouse Assessment & Plan Assessment Current Active Medications: Generic Name Dose Route Start Last Admin Trade Name Freq PRN Reason Stop Dose Admin Acetaminophen 650 mg 04/23/24 16:09 04/25/24 14:06 Acetaminophen 325 Mg Tablet PO 05/23/24 16:08 650 mg Q6H PRN Administration Pain 1-3 and/or Fever >100.1 Linzess 145 Mcg 0 ea 04/25/24 06:00 04/27/24 05:34 Capsules PO 05/25/24 05:59 1 capsule ACBR FERNANDO Administration Rytary (Carbidopa/ 0 ea 04/25/24 14:00 04/27/24 05:34 Levodopa) 61.25 Mg/ PO 05/25/24 13:59 1 capsule 245 Mg Extended TID FERNANDO Administration Release Capsules Dexamethasone Sodium Phosphate 6 mg 04/25/24 16:30 04/27/24 10:13 Dexamethasone Sod Phos Inj 10 Mg/Ml Vial IV 05/05/24 16:29 6 mg QDAY FERNANDO Administration Dextrose 25 ml 04/23/24 16:09 Dextrose 50%-Water Inj 50 Ml Syringe IV 05/23/24 16:08 Q15MIN PRN BG 50-70 responsive npo pt Dextrose 50 ml 04/23/24 16:09 Dextrose 50%-Water Inj 50 Ml Syringe IV 05/23/24 16:08 Q15MIN PRN BG <50 OR BG <70 & pt unresponsive Glucagon 1 mg 04/23/24 16:09 Glucagon Inj 1 Mg Vial IM Q15MIN PRN BG <70, and no IV access Heparin Sodium (Porcine) 5,000 unit 04/23/24 21:00 04/27/24 10:14 Heparin Sod Inj 5000 Unit/Ml Vial SC 05/07/24 20:59 5,000 unit Q12HR FERNANDO Administration Insulin Human Lispro 0 unit 04/23/24 17:00 04/27/24 12:21 Insulin Lispro (Admelog) 1 Unit/0.01 Ml Unit SC 05/23/24 16:59 Not Given AC FERNANDO Protocol Melatonin 9 mg 04/23/24 21:00 04/26/24 21:56 Melatonin 3 Mg Tablet PO 05/23/24 20:59 9 mg HS FERNANDO Administration Ondansetron HCl 4 mg 04/23/24 16:09 Ondansetron Inj 2 Mg/Ml Inj 2 Ml IV 05/23/24 16:08 Q6H PRN NAUSEA OR VOMITING Protocol Ropinirole HCl 0.5 mg 04/25/24 09:45 04/27/24 10:14 Ropinirole Hcl 0.25 Mg Tablet PO 05/24/24 08:59 0.5 mg QAM FERNANDO Administration Sennosides 1 tab 04/23/24 16:09 Senna Tablet PO 05/23/24 16:08 QDAY PRN constipation Protocol Tamsulosin HCl 0.4 mg 04/24/24 09:00 04/27/24 10:14 Tamsulosin Hcl 0.4 Mg Capsule PO 05/24/24 08:59 0.4 mg DAILY FERNANDO Administration Tizanidine HCl 4 - 8 mg 04/23/24 21:00 04/26/24 21:55 Tizanidine Hcl 2 Mg Tablet PO 05/23/24 20:59 4 mg HS FERNANDO Administration Plan 74-year-old male with a past medical history of diabetes, Parkinson's disease, prostatomegaly, and urinary retention s/p UroLift procedure presented to the ED with chief complaints of generalized weakness, fever, and unproductive cough will be admitted for COVID 19 exacerbation and will be treated with remdesivir regimen; will have further discussion with patient's family regarding eventual discharge and placement. #COVID 19 Infection Patient presenting from home with symptoms of subjective fever, cough and lethargy Per patient's , who is his primary radio division officer also, patient, patient's has been feeling this way for several days Also, patient's family members in the household have also been COVID-positive and are symptomatic Patient's also states that she is currently unable to effectively take care of patient In the ED, patient does not require any supplemental oxygenation; however, he does have risk factors including diabetes PT eval, swallow eval - completed Remdesevir completed Plan: Continue dexamethasone 6mg started for a total of 10 days Monitor oxygenation requirements Patient remains stable and has been approved for SNF with isolation, pending appeal #Parkinson's Disease Patient has longstanding history of Parkinson disease; on home carbidopa/levodopa, ropinirole and tizanidine Plan: Continue home medications #Non-insulin dependent type 2 diabetes mellitus ASCVD 14.3-8.1% Risk of cardiovascular event (coronary or stroke or non-fatal SC or stroke) in next 10 years. Last A1c of 5.5 Triglyceride 67, cholesterol 119, LDL 65, HDL 41 Patient is not on any home medications Plan: Sliding scale insulin Patient could benefit from moderate-high intensity statin; will consider adding #Hypertension Patient is mildly hypertensive with a systolic blood pressure 155, diastolic 73 Likely secondary to acutely ill status Patient does not have any home antihypertensive medication Plan: Monitor blood pressure #BPH Patient has long standing history of BPH, on home tamsulosin 0.4 mg Plan: Continue home medications #History of constipation, IBS-C Patient on Linzess 145 mcg; states 30 minutes before first meal in the a.m. Plan: Continue home medication Hospital Management: Lines: PIV Bowel: Senna Diet: Carb consistent, dysphagia 3 GI prophylaxis: Not needed DVT prophylaxis: Heparin subcu Dispo: Patient is discharged pending appeal to SNF with isolation room. Code: Full Patient seen and examined with attending Dr. Jonnathan Aldridge, PGY-1
--- NOTE | 2024-04-27 15:34 | PD.RESDS ---
Planned Discharge Date 04/27/24 DS: Providers Provider Date of admission: 04/23/24 16:09 Primary care physician: Physician No Primary/Family Admitting Provider: Masoud Quach MD Attending Provider on Admission: Easu De Santiago DO Consults: 04/23/24 16:14 Referral Physical Therapy Routine Comment: Physician Instructions: Referral Speech Therapy Routine Comment: 04/23/24 20:53 Referral Infection Control Routine Comment: Reason for Infection Control Referral: Patient In Isolation Referral Registered Dietitian Routine Comment: [facility] Referral - Knowledge Deficit Routine Comment: Positive screening for knowledge deficit needs. Attending Provider on DC: Gamaliel Aldridge MD Discharging Provider: Gamaliel Aldridge MD DS: Diagnosis Problem List Completed Was Problem List Reviewed/Reconciled?: Yes Hospital Course Hospital Course Hospital course: 74-year-old male with past medical history of diabetes, Parkinson disease, prostatomegaly and urinary retention status post UroLift presented to the ED on 04/23 with generalized weakness, fever and nonproductive cough. In the ED the patient was found to be COVID-positive and chest x-ray imaging showed mild enlargement of the cardiac contour along with moderate vascular congestion but no lobar pneumonia. CT head was negative for any acute process. Patient was admitted for COVID-19 exacerbation and started treatment with remdesivir. Patient's oxygenation status improved and he was started on IV dexamethasone 6 mg and made marked improvement. Patient will be discharged to SNF with the following strict instructions. Please continue Dexamethasone 6mg by mouth daily for seven more days Please follow-up with you PCP within 1-2 weeks Continue taking all your home medications If your symptoms worsen or you develop new shortness of breath, chest pain or fever please come back to the ED immediately. Hospital Diagnosis: #COVID 19 Infection #Parkinson's Disease #Non-insulin dependent type 2 diabetes mellitus #Hypertension #BPH #History of constipation, IBS-C Gamaliel Aldridge, PGY-1 Status at Discharge Overall status at discharge: patient is progressing back to baseline Time Spent with Patient Time attestation: Total time spent providing and/or coordinating discharge services: 45 minutes Time spent: Greater than 30 minutes Exam Vital Signs Temp Pulse Resp BP Pulse Ox O2 Del Method O2 Flow Rate 97.1 F 62 16 124/73 97 Room Air 2 04/27/24 12:00 04/27/24 12:00 04/27/24 12:00 04/27/24 12:00 04/27/24 12:00 04/27/24 12:00 04/27/24 04:05 Narrative Exam Physical Exam: GENERAL: Awake, answering questions appropriately, appears stated age HEENT: NC/AT. Moist mucosa. PERRLA/EOMI. CARDIO: Heart RRR, no obvious murmurs, no JVD. PULM: No coughing, no signs of visible SOB. Lungs CTA B/L. No Rales, wheezing or rhonchi auscultated GI: Abdomen soft, NT, +BS. Presence of ventral hernia SKIN/MSK/EXT: No wounds/discoloration/rashes/edema/amputations. +Pedal pulses present B/L. NEURO: Oriented x3, pill-rolling tremor noted bilateral upper extremities less obvious with all medications on board, no focal neurologic deficits Discharge Plan Plan Patient Disposition: Xfer Skilled Nsg Fac (SNF) Patient condition on transfer: Stable Care Plan Goals: Please continue Dexamethasone 6mg by mouth daily for seven more days Please follow-up with you PCP within 1-2 weeks Continue taking all your home medications If your symptoms worsen or you develop new shortness of breath, chest pain or fever please come back to the ED immediately. Prescriptions/Referrals Prescriptions/Med Rec: New dexamethasone 6 mg tablet 6 mg PO QDAY 7 Days Qty: 7 0RF Continued ropinirole 1 mg tablet 0.5 mg PO QAM tizanidine 4 mg tablet 4 - 8 mg PO HS Patient Comments: TAKE 1 TO 2 TABLETS BY MOUTH AT NIGHT tamsulosin 0.4 mg capsule 0.4 mg PO DAILY Patient Comments: GENERIC FOR FLOMAX... TAKE 1 CAPSULE BY MOUTH EVERY DAY Rytary 61.25-245 mg capsule, extended release 1 cap PO TID Rx Instructions: divide evenly over waking hours Linzess 145 mcg capsule 145 mcg PO QAM melatonin 10 mg tablet 10 mg PO HS Discontinued furosemide 40 mg tablet 40 mg PO BID gemfibrozil 600 mg tablet 600 mg PO DAILY Patient Comments: TAKE 1 TABLET BY MOUTH EVERY DAY nitroglycerin 0.4 mg Tablet, Sublingual 0.4 mg BUCCAL PRN PRN (Reason: Chest Pain) carbidopa-levodopa 25-100 mg tablet 1 tab PO Q6HR Patient Comments: TAKE 1 TABLET BY MOUTH FOUR TIMES DAILY potassium chloride 10 mEq tablet,ER particles/crystals 10 meq PO DAILY Patient Comments: TAKE 1 TABLET BY MOUTH EVERY DAY Referrals: No Primary/Family,Physician [Primary Care Provider] - Patient/Caregiver Discharge Instructions Education Materials: COVID-19 Prevention Print Language: Surinamese Stand Alone Forms: [employer]oxy Award Info., Patient Portal Info Letter Discharge Order Discharge Orders: Discharge (Routine); Ordered 04/26/24 Ordered By: Gamaliel Aldridge Quality Discharge Quality Measures VTE prophylaxis MD Attestestation MD Attestation I have discussed and was present for the essential components of the discharge history, physical examination, diagnosis, and discharge treatment plan with the resident. I agree with the patient's discharge care as documented by the resident and amended herein by me. Eder De Santiago DO. The patient understood all discharge instructions, all questions were answered satisfactorily. The patient was instructed to return to the Emergency Department is symptoms worsened or persisted. Patient was stable, afebrile, tolerating p.o. intake at time of discharge to SNF. At time of discharge, vital signs stable, patient afebrile on room air. Labs were unremarkable. I am going to continue the patient's course of dexamethasone 6 mg for a total 10-day course, see above. The patient's had appealed discharge however that was denied as the patient is completely stable for discharge to SNF at this time. Although this document has been carefully reviewed, there may still be some phonetic and other typographical errors. These errors are purely grammatical due to imperfections in the software program and should not be construed in any way to compromise the substance of the patient's medical care during this visit.
--- NOTE | 2024-04-27 15:44 | PC.SS ---
SS spoke to patient's by phone who explained she has been contacted by [employer] (Medicare Appeal) and they agreed with the hospital, pt is medically ready for d/c. Per , Lilly explained pt requires to leave by tomorrow, 2 before 12pm or she will be responsible for the hospital bill. SS provided with verbal choices for d/c to home or SNF. 's choice is [facility], SNF. is aware SS unable to guarantee [facility] will accept pt tomorrow by 12pm. is requesting pt to be d/c today to [facility] if they will still accept him. SS spoke to Kristina from [facility] and they will accept pt tonight. is aware patient's health insurance does not cover medical transportation to [facility]. explained she is very ill and unable to pay transport. SS attempted to contact [facility] but they do not have drivers available today. SS has sent patient's facehseet, ambulance form, and MANSI to [facility]. SS spoke to Ana Maria at [facility] who has received patient's information and transport is set for 6:30pm to [facility]. Bedside nurseDarya is aware. is aware. Kristina at [facility] is aware. Roseline CASTELLANO is aware.
[2024-04-27] MEDS: INSULIN LISPRO (AdmeLOG) 1 UNIT/0.01 ML UNIT SC (18:09)
== END 2024-04-27 20:20 | disposition skilled nursing facility (03) | DRG 179 ==
LOC: SERX 15:25 → SERHOLD 16:27 → S3SX 04-24 07:28 → SERHOLD 04-24 08:41 → S3SX 04-24 08:42
PROVIDERS: Admitting Provider Internal Medicine; Emergency Provider Emergency Medicine; Visit Provider Student in an Organized Health Care Education/Training Program
DX: U07.1 COVID-19 (principal); E11.9 Type 2 diabetes mellitus without complications; G20.A1 Parkinson's disease without dyskinesia, without mention of fluctuations; N40.1 Benign prostatic hyperplasia with lower urinary tract symptoms; I10 Essential (primary) hypertension; R33.8 Other retention of urine; K43.9 Ventral hernia without obstruction or gangrene; F02.80 Dementia in other diseases classified elsewhere, unspecified severity, without behavioral disturbance, psychotic disturbance, mood disturbance, and anxiety; Z79.84 Long term (current) use of oral hypoglycemic drugs; Z99.3 Dependence on wheelchair; Z88.8 Allergy status to other drugs, medicaments and biological substances; Z88.2 Allergy status to sulfonamides; Z79.899 Other long term (current) drug therapy
CPT/HCPCS: 36415; 70450; 71045; 80053; 80061; 81001; 83036; 83605; 83735; 84100; 84145; 85025; 87040; 87400; 87811; 92610; 93225; 97162; J0248; J1100; J1643; J1815; J7030; J7050; A9270

== ENCOUNTER → 2024-07-14 | Outpatient (CLI) | payer MEDICARE, BC, SELFPAY ==
[2024-07-14 11:51] LABS: Basophils % (Auto) 0 % (0-2.5); Eosinophils # (Auto) 0.1 Thou/mm3 (0.0-0.5); Eosinophils % (Auto) 2 % (0-10); Hemoglobin 15.1 g/dL (13.5-16.0); Immature Granulocytes % (Auto) 0 % (0-0); Immature Granulocytes Auto 0.02 Thou/mm3 (0.00-0.00); Lymphocytes # (Auto) 1.1 Thou/mm3 (1.0-4.8); Lymphocytes % (Auto) 16 % (10-50); Mean Corpuscular HGB Conc 32.8 g/dl (31.0-37.0); Mean Corpuscular Volume 92 fL (80-100); Monocytes # (Auto) 0.4 Thou/mm3 (0.0-0.8); Monocytes % (Auto) 6 % (0-12); Neutrophils # (Auto) 5.2 Thou/mm3 (1.8-7.7); Neutrophils % (Auto) 75 % (37-80); Nucleated Red Blood Cell % 0 /100 WBC (0); Platelet Count 177 Thou/mm3 (140-440); RDW Standard Deviation 44.4 fL (35.1-43.9); Red Blood Count 5.03 Miln/mm3 (4.50-5.90); White Blood Count 6.9 Thou/mm3 (3.8-10.6)
[2024-07-14 12:02] LABS: Glucose Estimated Average 111 mg/dL (80-131); Hemoglobin A1C 5.5 % Hgb (4.8-6.0)
[2024-07-14 12:08] LABS: Folate 7.46 ng/mL (>5.38); Vitamin B12 904 pg/mL (211-911)
[2024-07-14 12:20] LABS: Alanine Aminotransferase < 7 U/L (10-49); Albumin, Serum 4.5 gm/dL (3.4-4.8); Albumin/Globulin Ratio 1.7 (1.2-2.2); Alkaline Phosphatase 63 U/L (46-116); Anion Gap 7 (7-16); Aspartate Amino Transferase 11 U/L (0-34); BUN/Creatinine Ratio 15 Ratio (12-20); Bilirubin,Total 0.9 mg/dL (0.3-1.2); Blood Urea Nitrogen 15 mg/dL (9-23); Calcium 9.3 mg/dL (8.3-10.6); Calcium (Corrected) 9.3 mg/dL (8.5-10.1); Cardiac Risk Estimate 3.9 RATIO (4.0-6.7); Chloride 107 mMol/L (98-107); Cholesterol 193 mg/dL (132-200); Free T4 (Free Thyroxine) 1.18 ng/dL (0.89-1.76); Globulin 2.6 gm/dL (2.3-3.5); Glucose 113 mg/dL (74-106); HDL Cholesterol 50 mg/dL (40-60); LDL Cholesterol,Calculated 123 mg/dL (0-130); Osmolality,Calculated 286 (275-295); Potassium 4.3 mMol/L (3.4-5.1); Sodium 143 mMol/L (136-145); Thyroid Stimulating Hormone 3.61 uIU/mL (0.55-4.78); Total Protein 7.1 gm/dL (5.7-8.2); Triglycerides 100 mg/dL (30-150); Uric Acid 6.3 mg/dL (3.7-9.2); eGFR > 60 See Note
== END | disposition home or self-care (01) ==
PROVIDERS: PCP Family Medicine; Referring Provider Family Medicine; Visit Provider Family Medicine
DX: E04.1 Nontoxic single thyroid nodule (principal); E11.9 Type 2 diabetes mellitus without complications; E78.2 Mixed hyperlipidemia; I10 Essential (primary) hypertension; M10.9 Gout, unspecified; N40.0 Benign prostatic hyperplasia without lower urinary tract symptoms; R53.83 Other fatigue
CPT/HCPCS: 36415; 80053; 80061; 82607; 82746; 83036; 84153; 84154; 84439; 84443; 84550; 85025

== ENCOUNTER 2024-08-12 17:08 | Inpatient (IN) | payer MEDICARE, BC, SELFPAY ==
[2024-08-12] VITALS (7 sets, daily range): BP systolic 134–168; BP diastolic 78–89; PULSE 64–76; RESP 18–21; TEMP 36.7–37.1; O2SAT 94–99
--- NOTE | 2024-08-12 17:37 | XR_ITS ---
Examination: CT abdomen with intravenous contrast CT pelvis with intravenous contrast 2-D coronal reconstructions 2-D sagittal reconstructions Date and time of exam:August 12, 2024 1932 hours Comparison February 06, 2023 INDICATIONS: Abdominal pain with gastrointestinal bleeding today. CTDI: vol (mGy) 9.66 DLP: (mGycm) 586 Technique: Multiple axial sections of the abdomen and pelvis have been obtained. 64 slice high-resolution scanner used. 3 mm axial sections have been obtained, post intravenous injection 60 cc [id number] 2-D sagittal, coronal reconstructions obtained. Low dose protocols were performed. One or more of the following dose reduction techniques were used; automated exposure control, adjustment of the mA and/or KV according to patient size, use of iterative reconstruction technique. Findings: Mild enlargement cardiac contour Liver is mildly irregular in contour No gallstones Spleen is not enlarged Small retrocardiac gastric hernia No pancreatic mass or peripancreatic edema Mild nodular thickening both adrenal glands No renal or ureteral calculi, no hydronephrosis Suspicious for thrombus in the superior mesenteric vein, axial image 81 extending into the portal veins The aorta is not enlarged No bowel obstruction No pericecal inflammatory changes No diverticulitis 4 mm calculus in the urinary bladder Transverse prostate dimension 4.1 cm Advanced degenerative disc disease lower 2 lumbar levels IMPRESSION: Primary hepatocellular disease Suspicious for thrombus in the superior mesenteric vein and portal vein, recommend hepatobiliary sonography follow-up No CT findings of appendicitis bowel obstruction or diverticulitis 4 mm calculus in the urinary bladder
--- NOTE | 2024-08-12 17:38 | PD.EDRME ---
Rapid Medical Screening Exam RME Arrival date/time: 08/12/24 17:08 74-year-old male presents to the emergency department for complaint of abdominal pain, rectal bleeding Chief Complaint: GI Bleed Time Seen by Provider: 08/12/24 17:18 Vital signs: Vital Signs Temperature 98.7 F 08/12/24 17:32 Pulse Rate 66 08/12/24 17:32 Respiratory Rate 18 08/12/24 17:32 Blood Pressure 134/78 H 08/12/24 17:32 Pulse Oximetry (%) 96 08/12/24 17:32 Oxygen Delivery Method Room Air 08/12/24 17:32
--- NOTE | 2024-08-12 18:28 | PD.EDGIBLD ---
ED GI Bleed RME/HPI General Chief complaint: GI Bleed Stated complaint: RECTAL BLEEDING Time Seen by Provider: 08/12/24 17:18 Arrival date/time: 08/12/24 17:08 RME / HPI RME / HPI Narrative: 74-year-old male patient with significant history of BPH, Parkinson disease, was brought in by family for evaluation regarding rectal bleeding. Patient has been having melanotic stool, described as pinkish blood for the last 5 days except yesterday. Yesterday no bleeding noted today patient had worst day of bleeding according to the family. Patient is denying any abdominal pain denies any other complaints no medications taken prior to arrival. Patient is not taking any blood thinner. Last time patient had a colonoscopy was more than 3 years ago in [place] Related Data Home Medications ?Medication ?Instructions ?Recorded ?Confirmed ropinirole 1 mg tablet 0.5 mg PO QAM 11/03/22 04/23/24 tamsulosin 0.4 mg capsule 0.4 mg PO DAILY 11/03/22 04/23/24 tizanidine 4 mg tablet 4 - 8 mg PO HS 11/03/22 04/23/24 carbidopa ER 61.25 mg-levodopa 245 1 cap PO TID 04/23/24 04/23/24 mg capsule,extended release (Rytary) linaclotide 145 mcg capsule 145 mcg PO QAM 04/23/24 04/23/24 (Linzess) melatonin 10 mg tablet 10 mg PO HS 04/23/24 04/23/24 Allergies Allergy/AdvReac Type Severity Reaction Status Date / Time Sulfa (Sulfonamide Allergy Intermediate Swelling Verified 08/12/24 17:10 Antibiotics) of Lip/Tongue/Throat lorazepam (From Ativan) AdvReac Unknown Confusion Verified 08/12/24 17:10 Review of Systems Review of Systems Narrative Review of Systems: Review of system reviewed and within normal limits except mentioned in HPI ED Exam Narrative Physical exam: VITAL SIGNS: Reviewed. GENERAL APPEARANCE: Alert and interactive, follows commands, no acute distress, HEAD AND FACE: Non-traumatic. ENT: PERRL, pink conjunctivitis, eyelid no trauma, Mucous membrane moist. NECK: Supple, nontender, no nuchal rigidity. CHEST: No tenderness, no crepitus, no paradoxical movement, no retractions. LUNGS: Clear, well ventilated, symmetric, no rales, no wheezing, no ronchi, no stridor, good breath sounds bilaterally. HEART: Regular rate, regular rhythm, no murmur, no gallops. ABDOMEN: Soft, positive bowel sounds, nondistended, no guarding, nontender, no rebound, no masses, RECTAL: Rectal exam was done by me significant melanotic stool noted on the examining finger strongly positive occult blood GENITAL: Deferred. NEUROLOGICAL: Gross motor function intact sensory function intact, Appropriate for age. MUSCULOSKELETAL: low back nontender, full range of motion. EXTREMITIES: Nontender, full range of motion. SKIN: Color pink, dry, no rash, no lacerations, no abrasions, no contusions. LYMPHATICS: Deferred. Course Quality Measures none Orders Category Date Time Status CT Screening NOW Care 08/12/24 17:37 Active Endoscopy Consents .On arrival Care 08/12/24 19:49 Active Insert IV NOW Care 08/12/24 17:38 Active NPO NOW Care 08/12/24 19:36 Active NPO after Midnight ONCE Care 08/12/24 19:50 Active Occult Blood,Stool (Nursing) ONCE Care 08/12/24 18:26 Active Consult to Gastroenterology Stat Cons 08/12/24 18:27 Ordered Diet NPO (NOW) Diet 08/12/24 19:36 Active Diet NPO after Midnight Diet 08/13/24 00:[address] abdomen pelvis w con Stat Exams 08/12/24 17:37 Completed US abdomen limited Stat Exams 08/12/24 20:46 Ordered US venous doppler LE BI Stat Exams 08/12/24 20:49 Ordered CBC Stat Lab 08/12/24 18:28 Completed Comprehensive Metabolic Panel Stat Lab 08/12/24 18:28 Completed Lipase Stat Lab 08/12/24 18:28 Completed Partial Thromboplastin Time Stat Lab 08/12/24 18:28 Completed Prothrombin Time with INR Stat Lab 08/12/24 18:28 Completed UA, C/S IF [Urinalysis, C/S if Indicated] Stat Lab 08/12/24 20:35 Completed Pantoprazole Inj [Protonix Inj] Med 08/12/24 18:27 Discontinued 80 mg IVP X1 ONE Vital Signs Vital signs: Vital Signs Temperature 98.7 F 08/12/24 17:32 Pulse Rate 66 08/12/24 17:32 Respiratory Rate 18 08/12/24 17:32 Blood Pressure 134/78 H 08/12/24 17:32 Pulse Oximetry (%) 96 08/12/24 17:32 Oxygen Delivery Method Room Air 08/12/24 17:32 GI Bleed [facility] Narrative [facility] Narrative:: 74-year-old male patient with significant history of BPH, Parkinson disease, was brought in by family for evaluation regarding rectal bleeding. Patient has been having melanotic stool, described as pinkish blood for the last 5 days except yesterday. Yesterday no bleeding noted today patient had worst day of bleeding according to the family. Patient is denying any abdominal pain denies any other complaints no medications taken prior to arrival. Patient is not taking any blood thinner. Last time patient had a colonoscopy was more than 3 years ago in [place] CBC came back unremarkable except for slight anemia of 13.1 platelet is normal CMP unremarkable urinalysis unremarkable no UTI CT scan of the abdomen pelvis showed Primary hepatocellular disease Suspicious for thrombus in the superior mesenteric vein and portal vein, recommend hepatobiliary sonography follow-up No CT findings of appendicitis bowel obstruction or diverticulitis 4 mm calculus in the urinary bladder Ultrasound of the hepatobiliary system came back unremarkable according to mobile sales technician no thrombosis noted Spoke with Dr. Hines, GI specialist on-call, who saw the patient in the emergency room. Patient data External records reviewed:: None Clinical information provided by:: patient and family Social determinants that could affect healthcare access:: none Patient has the following chronic illnesses:: Parkinson's disease How is presenting disease/condition affected by chronic disease/condition?: uneffected by Evaluation data The following diagnostics were reviewed and interpreted by me:: lab results, radiology exam(s) and EKG tracing(s) Lab and/or radiology exams considered but not ordered:: None Interpretation Summary: See results [facility] Medications / Prescriptions Medications or Prescriptions considered but not ordered:: None Medication administrations:: Medication Administration History Discontinued Medications Pantoprazole Sodium (Pantoprazole Inj 40 Mg Vial) 80 mg IVP X1 ONE Stop: 08/12/24 18:28 Last Admin: 08/12/24 18:49 Dose: 80 mg Documented By: GRISEL Protonix Consultations Consultation(s) initiated? (list below): Yes Consultation #1 (Physician, Specialty, Details): Dr. Hines, GI specialist on-call, , Thank you very much Diagnosis GI bleed differential diagnosis: hemorrhoids, Upper gastrointestinal hemorrhage, Lower gastrointestinal hemorrhage and hematochezia Most likely diagnosis given after review of the tests above:: Upper GI bleed, lower GI bleed, rectal bleeding Admission Indicated Admission indicated?: indicated Admission Request Was there a request for admission?: Yes Admission Attestation Admission request attestation: Discussed case with [Dr. Dempsey] from Hospitalist service regarding admission. Discussed patients ED course, exam findings, labs, and radiology results. The Hospitalist [agrees] to accept the patient for admission. Disposition Plan Disposition Plan: Admit Discharge Plan Plan Patient Disposition: Admit Acute Care w/in Hospital Prescriptions/Referrals Prescriptions/Med Rec: No Action ropinirole 1 mg tablet 0.5 mg PO QAM tizanidine 4 mg tablet 4 - 8 mg PO HS Patient Comments: TAKE 1 TO 2 TABLETS BY MOUTH AT NIGHT tamsulosin 0.4 mg capsule 0.4 mg PO DAILY Patient Comments: GENERIC FOR FLOMAX... TAKE 1 CAPSULE BY MOUTH EVERY DAY Rytary 61.25-245 mg capsule, extended release 1 cap PO TID Rx Instructions: divide evenly over waking hours Linzess 145 mcg capsule 145 mcg PO QAM melatonin 10 mg tablet 10 mg PO HS Referrals: No Primary/Family,Physician [Primary Care Provider] - In 1 week Problem List Clinical Impression: Lower gastrointestinal hemorrhage, Upper gastrointestinal hemorrhage Patient/Caregiver Discharge Instructions Print Language: Czech Stand Alone Forms: [employer] Award Info., Patient Portal Info Letter
[2024-08-12 18:41] LABS: Basophils % (Auto) 1 % (0-2.5); Eosinophils # (Auto) 0.4 Thou/mm3 (0.0-0.5); Eosinophils % (Auto) 7 % (0-10); Hematocrit 39.1 % (41.0-53.0); Hemoglobin 13.1 g/dL (13.5-16.0); Immature Granulocytes % (Auto) 0 % (0-0); Immature Granulocytes Auto 0.01 Thou/mm3 (0.00-0.00); Lymphocytes # (Auto) 1.4 Thou/mm3 (1.0-4.8); Lymphocytes % (Auto) 24 % (10-50); Mean Corpuscular HGB Conc 33.5 g/dl (31.0-37.0); Mean Corpuscular Hemoglobin 29.8 pg (25.0-35.0); Mean Corpuscular Volume 89 fL (80-100); Monocytes # (Auto) 0.6 Thou/mm3 (0.0-0.8); Monocytes % (Auto) 11 % (0-12); Neutrophils # (Auto) 3.3 Thou/mm3 (1.8-7.7); Neutrophils % (Auto) 57 % (37-80); Nucleated Red Blood Cell % 0 /100 WBC (0); Platelet Count 154 Thou/mm3 (140-440); RDW Standard Deviation 42.7 fL (35.1-43.9); White Blood Count 5.7 Thou/mm3 (3.8-10.6)
[2024-08-12] MEDS: PANTOPRAZOLE INJ 40 MG VIAL 80 MG IVP (18:49)
[2024-08-12 18:59] LABS: Alanine Aminotransferase < 7 U/L (10-49); Albumin, Serum 4.3 gm/dL (3.4-4.8); Albumin/Globulin Ratio 1.9 (1.2-2.2); Alkaline Phosphatase 59 U/L (46-116); Anion Gap 9 (7-16); Aspartate Amino Transferase 10 U/L (0-34); BUN/Creatinine Ratio 18 Ratio (12-20); Bilirubin,Total 0.4 mg/dL (0.3-1.2); Blood Urea Nitrogen 16 mg/dL (9-23); Calcium 9.2 mg/dL (8.3-10.6); Calcium (Corrected) 9.2 mg/dL (8.5-10.1); Carbon Dioxide 26.1 mMol/L (20.0-31.0); Chloride 105 mMol/L (98-107); Creatinine (Component) 0.9 mg/dL (0.6-1.3); Globulin 2.3 gm/dL (2.3-3.5); Glucose 95 mg/dL (74-106); Lipase 30 U/L (12-53); Osmolality,Calculated 280 (275-295); Potassium 4.3 mMol/L (3.4-5.1); Sodium 140 mMol/L (136-145); Total Protein 6.6 gm/dL (5.7-8.2); eGFR > 60 See Note
[2024-08-12 19:02] LABS: Partial Thromboplastin Time 25.6 Seconds (22.0-36.0); Prothrombin Time 11.3 Seconds (9.0-12.2)
--- NOTE | 2024-08-12 19:25 | PC.NURSE ---
Report received from day RN. pt currently resting quietly. appears in no distress. VS are stable. pt is going for CT now.
--- NOTE | 2024-08-12 19:46 | PD.IMCONS ---
HPI Data of Consult Primary Care Provider: Physician No Primary/Family Consult Narrative Reason for consult: Hematochezia History of present illness: 74 years old male brought in by the family because of hematochezia Dark and pinkish stools CT scan of the abdomen pelvis done in the emergency room results are pending Presenting hemoglobin 13.1 and 39.1 Rectal examination is grossly Hemoccult positive and dark stool as per the MINUTE CLERK FOR [employer]/PA in the ER Patient has a history of Parkinson's disease and chronic constipation currently taking Linzess cc:: cc: Review of Systems Review of Systems Systems Reviewed: All systems reviewed, normal except as documented Past Medical History Surgical History OTHER SURGICAL HX: Parkinson's disease Meds Home Medications and Allergies Home Medications ?Medication ?Instructions ?Recorded ?Confirmed ?Type ropinirole 1 mg tablet 0.5 mg PO QAM 11/03/22 04/23/24 History tamsulosin 0.4 mg capsule 0.4 mg PO DAILY 11/03/22 04/23/24 History tizanidine 4 mg tablet 4 - 8 mg PO HS 11/03/22 04/23/24 History carbidopa ER 61.25 mg-levodopa 245 1 cap PO TID 04/23/24 04/23/24 History mg capsule,extended release (Rytary) linaclotide 145 mcg capsule 145 mcg PO QAM 04/23/24 04/23/24 History (Linzess) melatonin 10 mg tablet 10 mg PO HS 04/23/24 04/23/24 History Allergies Allergy/AdvReac Type Severity Reaction Status Date / Time Sulfa (Sulfonamide Allergy Intermediate Swelling Verified 08/12/24 17:10 Antibiotics) of Lip/Tongue/Throat lorazepam (From Ativan) AdvReac Unknown Confusion Verified 08/12/24 17:10 Exam Vital Signs Temp Pulse Resp BP Pulse Ox O2 Del Method 98.1 F 64 18 161/84 H 99 Room Air 08/12/24 18:33 08/12/24 18:33 08/12/24 18:33 08/12/24 18:33 08/12/24 18:33 08/12/24 18:33 Constitutional Comments: Chronically ill-appearing Routine Respiratory Exam Comments: Normal to auscultation Routine Abdominal Exam Comments: Soft nontender Results Labs 08/12/24 18:28 08/12/24 18:28 Labs: Short CBC 08/12/24 Range/Units 18:28 WBC 5.7 (3.8-10.6) Thou/mm3 Hgb 13.1 L (13.5-16.0) g/dL Hct 39.1 L (41.0-53.0) % Plt Count 154 (140-440) Thou/mm3 BMP 08/12/24 18:28 Sodium 140 Potassium 4.3 Chloride 105 Carbon Dioxide 26.1 BUN 16 Creatinine 0.9 Glucose 95 Calcium 9.2 Liver Function 08/12/24 Range/Units 18:28 Total Bilirubin 0.4 (0.3-1.2) mg/dL AST 10 (0-34) U/L ALT < 7 L (10-49) U/L Alkaline Phosphatase 59 (46-116) U/L Albumin 4.3 (3.4-4.8) gm/dL Assessment and Plan Additional Assessment & Plan Additional Plan: # Occult GI bleeding Plan consent obtained for fiberoptic esophagogastroduodenoscopy with possible biopsy possible therapeutic intervention under intravenous moderate sedation scheduled for tomorrow morning N.p.o. midnight tonight IV Protonix Serial CBC Will follow the patient Other medical problems include Parkinson disease continue carbidopa levodopa Thank you very much for the opportunity to participate in the care of this patient
--- NOTE | 2024-08-12 20:30 | PC.NURSE ---
Dr spangler here to see pt.
--- NOTE | 2024-08-12 20:46 | XR_ITS ---
Examination: Abdomen sonogram, Limited Date and time of exam: August 12, 2024 1043 hours INDICATIONS: Primary hepatocellular disease, suspicious for filling defects in the superior vena cava and portal vein on CT examination of the abdomen today Technique: Real-time kennedy scale transabdominal sonographic images of the upper abdomen obtained. Findings: Normal gallbladder Normal common bile duct 0.4 cm Pancreatic head 1.9 cm Liver 17.1 cm fatty infiltration no focal liver lesions No thrombus in the portal vein which is enlarged 13 mm Normal hepatopedal portal venous flow Patent IVC IMPRESSION: No thrombus is confirmed in the portal vein
--- NOTE | 2024-08-12 20:49 | XR_ITS ---
Examination: Venous duplex lower extremity sonogram, bilateral. Date and time of exam: August 12, 2024 1056 hours INDICATIONS: History leg DVT Technique: Multiple sonographic images of the deep venous system have been obtained. B-mode/2-D grayscale imaging of vascular structures and Doppler spectral analysis (waveforms) and color performed Both legs are examined. Findings: Positive for acute occlusive thrombus right posterior tibial vein Remaining right deep venous system open Normal left lower extremity venous Doppler IMPRESSION: Positive for occlusive DVT right posterior tibial vein
[2024-08-12 20:57] LABS: Collection Type, Urine Clean Catch
[2024-08-12 21:15] LABS: Bilirubin,Urine Negative (Negative); Blood,Urine Negative (Negative); Clarity,Urine Clear (Clear/Hazy); Color,Urine Yellow (Lt Yel-Yel); Culture Indicated,Urine Not Indicated; Glucose, Urine Negative (Negative); Ketones,Urine Negative (Negative); Leukocyte Esterase,Urine Negative (Negative); Nitrite,Urine Negative (Negative); PH,Urine 6.5 (5.0-7.0); Protein,Urine Negative (Neg - Trace); RBC,Urine 1 /hpf (0-3); Specific Gravity,Urine 1.031 (1.001-1.035); Squamous Epithelial Cell,Urine < 1 /hpf (0-5); Urobilinogen,Urine Negative mg/dL (0.0-1.0); WBC,Urine 6 /hpf (0-5)
--- NOTE | 2024-08-12 22:11 | PC.NURSE ---
pt resting quietly. Inc. of urine. pt cleaned and changed.
--- NOTE | 2024-08-12 23:10 | PC.NURSE ---
admiting MD with pt now
--- NOTE | 2024-08-12 23:32 | PD.RESHP ---
Documentation for date of: 08/12/24 HPI History of Present Illness Chief complaint: Bleeding per rectum History of present illness: A 74-year-old male with a past medical history of Parkinson's disease, prostatomegaly, and urinary retention s/p UroLift procedure presented to the ED with chief complaints of bleeding per rectum since 3 days. Patient is recently admitted in the hospital 1 month back for COVID. Patient is apparently normal 2 days ago and then he noticed blood while having a bowel movement which is bright red. Patient continued to have 1-2 episodes of bloody bowel movement since the last 3 days, as the episodes are not subsiding patient came to the ED for further evaluation. Endorsed that he is having constipation for which he is straining while having a bowel movement. Denies abdominal pain, fever, similar episodes in the past, usage of blood thinners . Endorsed that he takes ibuprofen as needed. Unsure of the colonoscopy. At baseline, patient is able to do his routine daily activities with assistance from his . ED course: - Vitals at the time of admission are significant for blood pressure 134/78 mmHg - Labs are significant for hemoglobin 13.1, rest of the lab values are within normal limits - CT abdomen/pelvis showed primary hepatocellular disease, suspicion of thrombus in the superior mesenteric vein and portal vein, 4 mm calculus in the bladder - Abdominal ultrasound ordered showed no thrombus in the portal vein - Venous Doppler showed occlusive thrombus in right posterior tibial vein Past medical history: Prostamegaly, Parkinson's disease Past surgical history: UroLift surgery, bilateral total knee replacement Social history: No smoking, alcohol, other illicit drug abuse Allergies: Sulfa drugs Review of Systems Review of Systems Systems Reviewed: All systems reviewed, normal except as documented Past Medical History Past Medical History NEUROLOGIC: Positive Dementia and Parkinson's Disease; Negative Neurological Disorders CARDIAC: Positive Cardiac Disorders, Angina, Hypercholesterolemia and Hypertension; Negative Congestive Heart Failure RESPIRATORY: Negative Chronic Obstructive Pulmonary Disease (COPD) or Asthma GASTROINTESTINAL: Positive Gastrointestinal Disorders, Gastroesophageal Reflux Disease and Obesity GENITOURINARY: Positive Genitourinary Disorders (hx of uti) and Benign Prostatic Hyperplasia; Negative Renal Disease MUSCULOSKELETAL: Positive Musculoskeletal Disorders, Arthritis (left knee) and Fractures ENDOCRINE: Positive Diabetes Mellitus Type 2; Negative Endocrine Disorders or Diabetes Mellitus Type 1 HEMATOLOGIC: Negative Blood Disorders or Sickle Cell Disease PSYCHO/SOCIAL: Positive Depression OTHER HISTORY: Positive Hospitalization and Anesthesia Reactions (cant wake up); Negative Autoimmune Disease, Falls, Blood Transfusions or Cancer Family History FAMILY HISTORY: Positive Family Cardiac Disorders (mom chf); Negative Family Psychiatric Problems, Family Respiratory Disorders, Family Gastrointestinal Problems, Family Cancer, Family Surgery or Family Anesthesia Reaction Surgical History SURGICAL: Positive Tonsillectomy and Joint Replacement Social History SMOKING STATUS: Never smoker SECOND HAND EXPOSURE: No Exam Vital Signs Temp Pulse Resp BP Pulse Ox O2 Del Method 98.4 F 67 20 146/84 H 95 Room Air 08/12/24 22:41 08/12/24 22:41 08/12/24 22:41 08/12/24 22:41 08/12/24 22:41 08/12/24 22:41 Narrative Exam General: Awake. HEENT: Normocephalic, atraumatic, mucous membranes moist. Heart: Regular rate and rhythm, no murmurs. Lungs: Clear to auscultation with no wheezing or crackles. Abdomen: Soft, nondistended, nontender, positive bowel sounds. ?No guarding or rebound tenderness. noted ventral hernia Neurologic: Alert and oriented x3, no gross neurological deficit, and patient able to move all 4 extremities. Extremities: Bilateral 4+ pitting pedal edema extending up to the knees. Skin: No rash or ecchymoses. Results: Labs 08/12/24 18:28 08/12/24 18:28 Labs: Short CBC 08/12/24 Range/Units 18:28 WBC 5.7 (3.8-10.6) Thou/mm3 Hgb 13.1 L (13.5-16.0) g/dL Hct 39.1 L (41.0-53.0) % Plt Count 154 (140-440) Thou/mm3 BMP 08/12/24 18:28 Sodium 140 Potassium 4.3 Chloride 105 Carbon Dioxide 26.1 BUN 16 Creatinine 0.9 Glucose 95 Calcium 9.2 Liver Function 08/12/24 Range/Units 18:28 Total Bilirubin 0.4 (0.3-1.2) mg/dL AST 10 (0-34) U/L ALT < 7 L (10-49) U/L Alkaline Phosphatase 59 (46-116) U/L Albumin 4.3 (3.4-4.8) gm/dL Urine 08/12/24 Range/Units 20:35 Urine Color Yellow (Lt Yel-Yel) Urine Clarity Clear (Clear/Hazy) Urine pH 6.5 (5.0-7.0) Ur Specific [place] 1.031 (1.001-1.035) Urine Protein Negative (Neg - Trace) Urine Glucose (UA) Negative (Negative) Quality Measures Quality Measures none Advance care planning discussed with:: patient Medications Home Medications and Allergies Home Medications ?Medication ?Instructions ?Recorded ?Confirmed ?Type ropinirole 1 mg tablet 0.5 mg PO QAM 11/03/22 08/12/24 History tamsulosin 0.4 mg capsule 0.4 mg PO DAILY 11/03/22 08/12/24 History carbidopa ER 61.25 mg-levodopa 245 1 cap PO TID 04/23/24 08/12/24 History mg capsule,extended release (Rytary) prucalopride 1 mg tablet 1 mg PO DAILY 08/12/24 08/12/24 History ropinirole 0.5 mg tablet 0.5 mg PO DAILY 08/12/24 08/12/24 History melatonin 10 mg capsule 10 mg PO HS 08/13/24 08/13/24 History sennosides 8.6 mg tablet (senna) 17.2 mg PO HS PRN constipation 08/13/24 08/13/24 History tizanidine 4 mg tablet 4 mg PO HS 08/13/24 08/13/24 History Allergies Allergy/AdvReac Type Severity Reaction Status Date / Time Sulfa (Sulfonamide Allergy Intermediate Swelling Verified 08/12/24 17:10 Antibiotics) of Lip/Tongue/Throat lorazepam (From Ativan) AdvReac Unknown Confusion Verified 08/12/24 17:10 Visit Medications Acetaminophen (Acetaminophen 325 Mg Tablet) 650 mg PO Q6H PRN PRN Reason: Fever >100.3 or mild pain 1-3 Stop: 09/11/24 23:03 Ondansetron HCl (Ondansetron Inj 2 Mg/Ml Inj 2 Ml) 4 mg IVP Q6H PRN; Protocol PRN Reason: NAUSEA OR VOMITING Stop: 09/11/24 23:03 Pantoprazole Sodium (Pantoprazole Inj 40 Mg Vial) 40 mg IVP QDAY FERNANDO Stop: 09/12/24 08:59 Discontinued Medications Pantoprazole Sodium (Pantoprazole Inj 40 Mg Vial) 80 mg IVP X1 ONE Stop: 08/12/24 18:28 Last Admin: 08/12/24 18:49 Dose: 80 mg Assessment & Plan Plan A 74-year-old male with a past medical history of Parkinson's disease, prostatomegaly, and urinary retention s/p UroLift procedure presented to the ED with chief complaints of bleeding per rectum since 3 days. # GI bleed, likely Lower GI # Likely Diverticular bleeed vs Hemorrhoids - Presented to the hospital with chief complaints of bleeding per rectum since 3 days - Denies abdominal pain, fever, use of blood thinners - Denies similar history in the past - Vitals are stable at the time of admission. Physical examination remains unremarkable except for ventral hernia and bilateral pedal edema - Labs at admission showed hemoglobin 13.1, platelets 154, INR 1.0 - CT abdomen/pelvis showed primary hepatocellular disease, calculus in bladder - In the ED, patient is given 80 Mg of IV pantoprazole Plan - Insurance Sales Representative, Dr. Hines was consulted and he recommended endoscopy tomorrow - Kept on n.p.o. - Pantoprazole 40 Mg IV daily - Monitor CBC and transfuse if Hb less than 7 # Distal DVT, right posterior tibial vein - Likely multifactorial -immobilization and COVID sequela as patient had recent history of hospitalization for COVID infection - Noted bilateral 3+pedal edema extending upto knees without any calf tenderness - Bilateral lower extremity venous Doppler showed thrombus in right posterior tibial vein - Wells score is 4 Plan - As patient is currently having active bleeding, held anticoagulation for now - As patient is having distal DVT with active bleeding, will do serial monitoring after 2 weeks to look for proximal extension and start anticoagulation as needed - Ordered ECHO in view of b/l pedal edema # Elevated blood pressure - Patient found to have systolic blood pressure of 130-160 and diastolic blood pressure of 75-90 -Patient is not using any antihypertensives at home Plan -Continue to monitor blood pressures and add medications as needed # Parkinson's disease - Patient is using ropinirole 0.5 Mg daily and Rytary p.o. 3 times daily - Home medication reconciliation is done and reconciled his home medications # Constipation - Likely in the setting of immobility and parkinsonism - Patient is using prucalopride 1 Mg p.o. daily and senna as needed - Resumed his home medication # BPH - Patient is using tamsulosin 0.4 Mg p.o. daily - Resumed his home medication Hospital Maintenance: Dispo: Tele DVT ppx: SCD GI ppx: Pantoprazole Diet: NPO IV lines: Peripheral Code status: Full Patient plan of care was discussed with the attending physician, Dr. Daniel Camacho, PGY1 Attending Provider Attestation/Addendum I have examined the patient, reviewed labs and imaging findings, discussed the case with the resident(s), and reviewed entered orders. I agree with the plan of care as outlined in this note, with these additional summaries/recommendations: 74-year-old male with past medical history of Parkinson's disease presents to the ED with chief complaint of blood per rectum that has been ongoing for the last several days with symptoms of fatigue. Patient was found to have lower extremity swelling with lower extremity ultrasound showing DVT in the posterior tibial vein. Patient with acute bleed so we will hold off on any anticoagulation at this time. GI was consulted by the ER who recommended admission for further workup of acute symptomatic anemia. Will keep patient n.p.o., given Protonix in the ER. Continue to monitor H&H closely. Umang Sanchez MD
[2024-08-13] VITALS (12 sets, daily range): BP systolic 129–158; BP diastolic 77–94; PULSE 60–77; RESP 17–27; TEMP 36.2–37.2; O2SAT 95–98
--- NOTE | 2024-08-13 | PC.NURSE ---
MD Camacho made aware of Doppler US of BLE which shows positive for DVT right posterior vein, MD will check on pts chart.
--- NOTE | 2024-08-13 01:16 | PC.NURSE ---
report was called to floor RN befor pt taken to rm by RN denis
--- NOTE | 2024-08-13 01:46 | ECHO_ITS ---
Transthoracic Echo Report Ht (in): Wt (lb): 212 Exam Location: Echo Lab Status: Inpatient Chemistry Quality Control Analyst: Valentina Gaitan Indications: Procedure Performed: BP: 136 / 77 HR: 60 Technical Quality: Technically difficult study MEASUREMENTS (Male / Female) Normal Values M-MODE Aortic Root Diameter MM 3.6 cm LA Systolic Diameter MM 3.6 cm LA Ao Ratio MM 1.0 AV Cusp Separation MM 2.2 cm DOPPLER AV Peak Velocity 162.0 cm/s AV Peak Gradient 10.5 mmHg AV Mean Gradient 5.0 mmHg AV Velocity Time Integral 38.4 cm LVOT Peak Velocity 120.0 cm/s LVOT Peak Gradient 5.8 mmHg LVOT Velocity Time Integral 26.9 cm MV Area PHT 2.5 cm? MR Peak Velocity 238.0 cm/s MR Peak Gradient 22.7 mmHg Mitral E Point Velocity 55.8 cm/s Mitral A Point Velocity 75.2 cm/s Mitral E to A Ratio 0.7 LV E' Lateral Velocity 10.2 cm/s Mitral E to LV E' Lateral Ratio 5.5 LV E' Septal Velocity 6.3 cm/s Mitral E to LV E' Septal Ratio 8.8 PV Peak Velocity 99.1 cm/s PV Peak Gradient 3.9 mmHg FINDINGS Left Ventricle Normal left ventricular size, wall thickness, systolic function with no obvious regional wall motion abnormalities. There is grade I diastolic dysfunction of the left ventricle (impaired relaxation pattern). The ejection fraction is visually estimated at 55%. Right Ventricle The right ventricle is normal in size and systolic function. Left Atrium The left atrium is normal by two-dimensional, color flow and Doppler imaging with no structural abnormalities, no thrombus formation present. Right Atrium The right atrium is normal by two-dimensional imaging, color flow and Doppler imaging with no structural abnormalities, no thrombus formation present. Atrial Septum The interatrial septum appears normal with no evidence of a shunt. Aorta The aorta is normal by two-dimensional, color flow and Doppler interrogation. Mitral Valve The mitral valve is normal by two-dimensional, color flow and Doppler interrogation. Trace mitral regurgitation. Aortic Valve Mild thickening of the aortic valve leaflets. Aortic valve sclerosis. Tricuspid Valve The tricuspid valve is normal by two-dimensional, color flow and Doppler interrogation. There is trace tricuspid valve regurgitation. Pulmonic Valve The pulmonic valve is not well visualized. There is no significant pulmonic valve regurgitation. Vessels The pulmonary artery appears normal. The inferior vena cava pulmonary and hepatic veins appear normal. Pericardium The pericardium is normal by two-dimensional imaging. There is no significant pericardial effusion. CONCLUSIONS Indication: Pedal Edema Normal LV size, wall thickness. There is grade I diastolic dysfunction. Estimated EF 55%. RV is normal in size and systolic function. Trace MR and TR. Mild thickening of the AV. Aortic valve sclerosis. Austin Singletary (Electronically Signed) Final Date: 14 Aug 2024 12:10
[2024-08-13 05:57] LABS: Basophils # (Auto) 0.1 Thou/mm3 (0.0-0.2); Basophils % (Auto) 1 % (0-2.5); Eosinophils # (Auto) 0.5 Thou/mm3 (0.0-0.5); Eosinophils % (Auto) 9 % (0-10); Hematocrit 39.8 % (41.0-53.0); Hemoglobin 13.4 g/dL (13.5-16.0); Immature Granulocytes % (Auto) 0 % (0-0); Immature Granulocytes Auto 0.02 Thou/mm3 (0.00-0.00); Lymphocytes # (Auto) 1.4 Thou/mm3 (1.0-4.8); Lymphocytes % (Auto) 24 % (10-50); Mean Corpuscular HGB Conc 33.7 g/dl (31.0-37.0); Mean Corpuscular Hemoglobin 29.6 pg (25.0-35.0); Mean Corpuscular Volume 88 fL (80-100); Monocytes # (Auto) 0.6 Thou/mm3 (0.0-0.8); Monocytes % (Auto) 10 % (0-12); Neutrophils # (Auto) 3.4 Thou/mm3 (1.8-7.7); Neutrophils % (Auto) 57 % (37-80); Nucleated Red Blood Cell % 0 /100 WBC (0); Platelet Count 155 Thou/mm3 (140-440); RDW Standard Deviation 41.1 fL (35.1-43.9); Red Blood Count 4.52 Miln/mm3 (4.50-5.90)
[2024-08-13 06:33] LABS: Alanine Aminotransferase < 7 U/L (10-49); Albumin, Serum 4.2 gm/dL (3.4-4.8); Albumin/Globulin Ratio 1.8 (1.2-2.2); Alkaline Phosphatase 58 U/L (46-116); Anion Gap 10 (7-16); Aspartate Amino Transferase 11 U/L (0-34); BUN/Creatinine Ratio 14 Ratio (12-20); Bilirubin,Total 0.9 mg/dL (0.3-1.2); Blood Urea Nitrogen 13 mg/dL (9-23); Calcium 8.7 mg/dL (8.3-10.6); Calcium (Corrected) 8.7 mg/dL (8.5-10.1); Carbon Dioxide 26.2 mMol/L (20.0-31.0); Chloride 109 mMol/L (98-107); Creatinine (Component) 0.9 mg/dL (0.6-1.3); Globulin 2.3 gm/dL (2.3-3.5); Glucose 105 mg/dL (74-106); Osmolality,Calculated 288 (275-295); Potassium 3.9 mMol/L (3.4-5.1); Sodium 145 mMol/L (136-145); Total Protein 6.5 gm/dL (5.7-8.2); eGFR > 60 See Note
--- NOTE | 2024-08-13 08:02 | ESPR_ITS ---
Documentation for date of: 08/13/24 Subjective Subjective Interval history: Patient was seen and examined at bedside this morning. No acute overnight events. Patient had EGD done today and showed normal esophagus with some erythematous mucosa of the gastric antrum and. Will start GoLytely. Has no new complaints at this time. Hemoglobin has been stable at 13.4 and otherwise labs look unremarkable. Will continue current management. Exam Vital Signs Temp Pulse Resp BP Pulse Ox O2 Del Method 97.2 F 67 17 144/85 H 96 Room Air 08/13/24 04:00 08/13/24 04:00 08/13/24 04:00 08/13/24 04:00 08/13/24 04:00 08/13/24 04:00 Narrative Exam General: A/O x3 (not to time, but able to state current president), no acute distress, well-nourished, well-developed Eyes: PERRL, EOMI. Anicteric, vision grossly intact. Ears: No ear pain, no ear discharge, Hearing grossly intact. Nose: No nasal discharge. Mouth/Throat: Moist mucous membranes, no redness, no lesions. Neck: Neck supple, non-tender, no cervical lymphadenopathy. Lungs: Clear PATIENCE to auscultation and percussion, No accessory muscle use. Cardio: Normal S1/S2, regular rhythm, no murmurs, no JVD Abdomen: Soft, mildly tender in epigastric region, no palpable masses, peristalsis present, no guarding or rebound. Extremities: Symmetrical, no significant deformities, trace peripheral edema , non-tender, peripheral pulses presents, tremor in PATIENCE UE. Skin: No rashes, no lesions, warm to touch. Neuro: No focal neurological deficits. Psych: Cooperative, appropriate mood and effect. Objective Labs 08/13/24 05:16 08/13/24 05:16 Labs: Laboratory Results - last 24 hr 08/12/24 08/12/24 08/13/24 18:28 20:35 05:16 WBC 5.7 6.0 RBC 4.40 L 4.52 Hgb 13.1 L 13.4 L Hct 39.1 L 39.8 L MCV 89 88 MCH 29.8 29.6 MCHC 33.5 33.7 RDW Std Deviation 42.7 41.1 Plt Count 154 155 Neut % (Auto) 57 57 Lymph % (Auto) 24 24 [place] % (Auto) 11 10 Eos % (Auto) 7 9 Baso % (Auto) 1 1 Neut # (Auto) 3.3 3.4 Lymph # (Auto) 1.4 1.4 [place] # (Auto) 0.6 0.6 Eos # (Auto) 0.4 0.5 Baso # (Auto) 0.0 0.1 Immature Gran # (Auto) 0.01 H 0.02 H Absolute Nucleated RBC 0.00 0.00 Immature Gran % 0 0 Nucleated RBC % 0 0 PT 11.3 INR 1.0 APTT 25.6 Sodium 140 145 Potassium 4.3 3.9 Chloride 105 109 H Carbon Dioxide 26.1 26.2 Anion Gap 9 10 BUN 16 13 Creatinine 0.9 0.9 Estim Creat Clear Calc Not Performed. Not Performed. eGFR > 60 > 60 BUN/Creatinine Ratio 18 14 Glucose 95 105 Calculated Osmolality 280 288 Calcium 9.2 8.7 Corrected Calcium 9.2 8.7 Total Bilirubin 0.4 0.9 D AST 10 11 ALT < 7 L < 7 L Alkaline Phosphatase 59 58 Total Protein 6.6 6.5 Albumin 4.3 4.2 Globulin 2.3 2.3 Albumin/Globulin Ratio 1.9 1.8 Lipase 30 Ur Collection Type Clean Catch Urine Color Yellow Urine Clarity Clear Urine pH 6.5 Ur Specific [place] 1.031 Urine Protein Negative Urine Glucose (UA) Negative Urine Ketones Negative Urine Blood Negative Urine Nitrite Negative Urine Bilirubin Negative Urine Urobilinogen (Auto) Negative Ur Leukocyte Esterase Negative Urine RBC 1 Urine WBC 6 H Ur Squamous Epith Cells < 1 Urine Bacteria None Ur Culture Indicated? Not Indicated Quality Measures Quality Measures none Advance care planning discussed with:: patient Assessment & Plan Assessment Current Active Medications: Generic Name Dose Route Start Last Admin Trade Name Freq PRN Reason Stop Dose Admin Acetaminophen 650 mg 08/12/24 23:04 Acetaminophen 325 Mg Tablet PO 09/11/24 23:03 Q6H PRN Fever >100.3 or mild pain 1-3 Non-Formulary Medication 1 cap 08/13/24 01:45 Carbidopa-Levodopa [Rytary] PO 09/12/24 01:44 TID FERNANDO Non-Formulary Medication 1 mg 08/13/24 09:00 Prucalopride PO 09/12/24 08:59 DAILY FERNANDO Ondansetron HCl 4 mg 08/12/24 23:04 Ondansetron Inj 2 Mg/Ml Inj 2 Ml IVP 09/11/24 23:03 Q6H PRN NAUSEA OR VOMITING Protocol Pantoprazole Sodium 40 mg 08/13/24 09:00 Pantoprazole Inj 40 Mg Vial IVP 09/12/24 08:59 QDAY FERNANDO Ropinirole HCl 0.5 mg 08/13/24 09:00 Ropinirole Hcl 1 Mg Tablet PO 09/12/24 08:59 QAM [facility] Tamsulosin HCl 0.4 mg 08/13/24 09:00 Tamsulosin Hcl 0.4 Mg Capsule PO 09/12/24 08:59 DAILY FERNANDO Tizanidine HCl 4 mg 08/13/24 21:00 Tizanidine Hcl 2 Mg Tablet PO 09/12/24 20:59 HS [facility] Plan 74-year-old male with past medical history of Parkinson disease, prostatomegaly, and urine retention s/p UroLift was admitted to the hospital on 08/12/2024 due to GI bleed. #GI bleed #Gastritis #Normocytic normochromic anemia Patient came in with complaints of farida bright blood per rectum Patient's hemoglobin was stable on admission at 13.1, but baseline is around 15 from 07/14/24 Hemoglobin today is still at 13.4 Patient underwent EGD today which only showed erythematous gastric mucosa Plan: Patient will be started on clear liquid diet and GoLytely for possible colonoscopy Will continue with Protonix GI consulted, appreciate commendations Will continue to monitor. #Distal DVT, right posterior tibial vein Patient had 3+ peripheral edema extending up to knees without calf tenderness on admission, but edema has significantly improved today to only some trace edema. Venous Doppler that showed acute DVT of the right posterior tibial vein Plan: Patient is currently having an active bleed therefore we will hold off on anticoagulation for now With cleared by GI after colonoscopy we will start anticoagulation. If patient does have a DVT and anticoagulation is not indicated by GI we will likely require to place an IVC filter. #Hx of Parkinson disease #Hx of BPH Will continue with tamsulosin 0.5 mg daily, ropinirole 0.5 mg daily, and Rytary 3 times daily, and tizanidine 4 mg at bedtime #Urinary bladder calculus Found to have 4 mm calculus in the urinary bladder as per abdomen/pelvis CT Has only 1 RBC in urinalysis Outpatient urology follow-up #Degenerative disc disease Found to have advanced degenerative disc disease of lower 2 lumbar levels as per abdomen/pelvis CT Findings were present on his last visits as well Patient does not complain of pain, outpatient follow-up Disposition: Pending colonoscopy. Diet: CLD GI prophylaxis: protonix DVT prophylaxis: held due to active bleeding and no SCDs as distal DVT present Code: Full code Case disclosed with Attending Dr. Maximilian Haynes PGY1 Disclaimer: Even though this this note was dictated by speech recognition and even though it was carefully revised there may still be minor errors in psychiatry physician due to voice recognition software. Attending Provider Attestation/Addendum I attest that I was physically present for the evaluation, physical examination, lab and imaging review of the patient with the residents. I discussed the case with the residents and agree with the findings and plans of care as documented above. Patient is a 78 years old male with past medical history of Parkinson's disease, prostatomegaly, urinary retention status post UroLift procedure who was admitted overnight for management of GI bleeding and DVT. At bedside today, patient appears comfortable and denies any new complaints. Abdomen is soft and nontender, noted to have tremor likely due to his Parkinson's. Hemoglobin is stable, 13.4 today. Chemistry panel is nonconcerning, PT/INR within normal limits. Patient underwent EGD today with gastroenterology was found to have erythematous mucosa in the gastric antrum and erythematous duodenopathy but no active bleeding. Patient is planned for colonoscopy with gastroenterology, currently getting GoLytely preparation. Patient was also found to have occlusive DVT in right posterior tibial vein, unable to anticoagulate currently due to concern of GI bleeding. Sandrita Yao MD
[2024-08-13] MEDS: rOPINIRole HCL 1 MG TABLET 0.5 MG PO (12:20)
[2024-08-13] MEDS: PANTOPRAZOLE INJ 40 MG VIAL IVP (12:20)
[2024-08-13] MEDS: TAMSULOSIN HCL 0.4 MG CAPSULE PO (12:20)
[2024-08-13] MEDS: NA SU/NAHCO3/KC/PEG (Golytely) 4,000 ML BTL 4000 ML PO (12:58)
[2024-08-13] MEDS: CARBIDOPA LEVODOPA PO ×2 (14:25→21:21)
[2024-08-13] MEDS: [UNRECOGNIZED DRUG - OTHER] PO (14:25)
[2024-08-13] MEDS: tiZANidine HCL 2 MG TABLET 4 MG PO (21:21)
[2024-08-14] VITALS (21 sets, daily range): BP systolic 118–149; BP diastolic 73–95; PULSE 59–76; RESP 12–20; TEMP 36.1–36.9; O2SAT 94–99; BMI 34.0
[2024-08-14] MEDS: CARBIDOPA LEVODOPA PO ×2 (05:29→21:16)
[2024-08-14] MEDS: NA SU/NAHCO3/KC/PEG (Golytely) 4,000 ML BTL 4000 ML PO (06:28)
--- NOTE | 2024-08-14 06:33 | PC.NURSE ---
pt completed golytely 4000ml but stool still not clear. Dr. Hines notified and new order for another 4000ml golytely and carried out.
[2024-08-14 06:39] LABS: Basophils % (Auto) 1 % (0-2.5); Eosinophils # (Auto) 0.3 Thou/mm3 (0.0-0.5); Eosinophils % (Auto) 7 % (0-10); Hematocrit 38.6 % (41.0-53.0); Hemoglobin 12.9 g/dL (13.5-16.0); Immature Granulocytes % (Auto) 0 % (0-0); Immature Granulocytes Auto 0.01 Thou/mm3 (0.00-0.00); Lymphocytes # (Auto) 1.4 Thou/mm3 (1.0-4.8); Lymphocytes % (Auto) 29 % (10-50); Mean Corpuscular HGB Conc 33.4 g/dl (31.0-37.0); Mean Corpuscular Hemoglobin 29.7 pg (25.0-35.0); Mean Corpuscular Volume 89 fL (80-100); Monocytes # (Auto) 0.5 Thou/mm3 (0.0-0.8); Monocytes % (Auto) 11 % (0-12); Neutrophils # (Auto) 2.5 Thou/mm3 (1.8-7.7); Neutrophils % (Auto) 52 % (37-80); Nucleated Red Blood Cell % 0 /100 WBC (0); Platelet Count 155 Thou/mm3 (140-440); RDW Standard Deviation 40.9 fL (35.1-43.9); Red Blood Count 4.34 Miln/mm3 (4.50-5.90); White Blood Count 4.8 Thou/mm3 (3.8-10.6)
[2024-08-14 07:24] LABS: Alanine Aminotransferase < 7 U/L (10-49); Albumin, Serum 3.9 gm/dL (3.4-4.8); Alkaline Phosphatase 57 U/L (46-116); Anion Gap 11 (7-16); Aspartate Amino Transferase 12 U/L (0-34); BUN/Creatinine Ratio 11 Ratio (12-20); Bilirubin,Total 0.9 mg/dL (0.3-1.2); Blood Urea Nitrogen 10 mg/dL (9-23); Calcium 8.7 mg/dL (8.3-10.6); Calcium (Corrected) 8.8 mg/dL (8.5-10.1); Chloride 107 mMol/L (98-107); Creatinine (Component) 0.9 mg/dL (0.6-1.3); Glucose 106 mg/dL (74-106); Osmolality,Calculated 287 (275-295); Potassium 3.8 mMol/L (3.4-5.1); Sodium 145 mMol/L (136-145); Total Protein 5.9 gm/dL (5.7-8.2); eGFR > 60 See Note
[2024-08-14] MEDS: PANTOPRAZOLE INJ 40 MG VIAL IVP (08:37)
[2024-08-14] MEDS: [UNRECOGNIZED DRUG - OTHER] PO (08:38)
[2024-08-14] MEDS: rOPINIRole HCL 1 MG TABLET 0.5 MG PO (08:38)
[2024-08-14] MEDS: TAMSULOSIN HCL 0.4 MG CAPSULE PO (08:38)
--- NOTE | 2024-08-14 10:00 | PD.RESPRO ---
Documentation for date of: 08/14/24 Subjective Subjective Interval history: Patient was seen and examined at bedside this morning. No acute overnight events. Patient is still pending colonoscopy and he appears to not be cleared as of yet, but is continued on GoLytely. Will continue current management for now. Exam Vital Signs Temp Pulse Resp BP Pulse Ox O2 Del Method O2 Flow Rate 97.0 F 60 16 136/77 H 96 Room Air 3 08/14/24 07:56 08/14/24 07:56 08/14/24 07:56 08/14/24 07:56 08/14/24 07:56 08/14/24 07:56 08/13/24 12:00 Narrative Exam General: A/O x3 (not to time, but able to state current president), no acute distress, well-nourished, well-developed Eyes: PERRL, EOMI. Anicteric, vision grossly intact. Ears: No ear pain, no ear discharge, Hearing grossly intact. Nose: No nasal discharge. Mouth/Throat: Moist mucous membranes, no redness, no lesions. Neck: Neck supple, non-tender, no cervical lymphadenopathy. Lungs: Clear PATIENCE to auscultation and percussion, No accessory muscle use. Cardio: Normal S1/S2, regular rhythm, no murmurs, no JVD Abdomen: Soft, mildly tender in epigastric region, no palpable masses, peristalsis present, no guarding or rebound. Extremities: Symmetrical, no significant deformities, trace peripheral edema , non-tender, peripheral pulses presents, tremor in PATIENCE UE. Skin: No rashes, no lesions, warm to touch. Neuro: No focal neurological deficits. Psych: Cooperative, appropriate mood and effect. Objective Labs 08/14/24 06:17 08/14/24 06:17 Labs: Laboratory Results - last 24 hr 08/14/24 06:17 WBC 4.8 RBC 4.34 L Hgb 12.9 L Hct 38.6 L MCV 89 MCH 29.7 MCHC 33.4 RDW Std Deviation 40.9 Plt Count 155 Neut % (Auto) 52 Lymph % (Auto) 29 [place] % (Auto) 11 Eos % (Auto) 7 Baso % (Auto) 1 Neut # (Auto) 2.5 Lymph # (Auto) 1.4 [place] # (Auto) 0.5 Eos # (Auto) 0.3 Baso # (Auto) 0.0 Immature Gran # (Auto) 0.01 H Absolute Nucleated RBC 0.00 Immature Gran % 0 Nucleated RBC % 0 Sodium 145 Potassium 3.8 Chloride 107 Carbon Dioxide 27.0 Anion Gap 11 BUN 10 Creatinine 0.9 Estim Creat Clear Calc Not Performed. eGFR > 60 BUN/Creatinine Ratio 11 L Glucose 106 Calculated Osmolality 287 Calcium 8.7 Corrected Calcium 8.8 Total Bilirubin 0.9 AST 12 ALT < 7 L Alkaline Phosphatase 57 Total Protein 5.9 Albumin 3.9 Globulin 2.0 L Albumin/Globulin Ratio 2.0 Quality Measures Quality Measures none Advance care planning discussed with:: patient Assessment & Plan Assessment Current Active Medications: Generic Name Dose Route Start Last Admin Trade Name Freq PRN Reason Stop Dose Admin Acetaminophen 650 mg 08/12/24 23:04 Acetaminophen 325 Mg Tablet PO 09/11/24 23:03 Q6H PRN Fever >100.3 or mild pain 1-3 (Carbidopa-Levodopa 0 ea 08/13/24 14:00 08/14/24 05:29 [Rytary] 61.25-245 PO 09/12/24 13:59 1 capsule Mg Capsule, Er TID FERNANDO Administration (Prucalopride 1 Mg 0 ea 08/13/24 11:45 08/14/24 08:38 Tablet) PO 09/12/24 11:44 1 tablet QDAY FERNANDO Administration Ondansetron HCl 4 mg 08/12/24 23:04 Ondansetron Inj 2 Mg/Ml Inj 2 Ml IVP 09/11/24 23:03 Q6H PRN NAUSEA OR VOMITING Protocol Pantoprazole Sodium 40 mg 08/15/24 09:00 Pantoprazole 40 Mg Tablet PO 09/14/24 08:59 QDAY FERNANDO Protocol Ropinirole HCl 0.5 mg 08/13/24 09:00 08/14/24 08:38 Ropinirole Hcl 1 Mg Tablet PO 09/12/24 08:59 0.5 mg QAM FERNANDO Administration Tamsulosin HCl 0.4 mg 08/13/24 09:00 08/14/24 08:38 Tamsulosin Hcl 0.4 Mg Capsule PO 09/12/24 08:59 0.4 mg DAILY FERNANDO Administration Tizanidine HCl 4 mg 08/13/24 21:00 08/13/24 21:21 Tizanidine Hcl 2 Mg Tablet PO 09/12/24 20:59 4 mg HS FERNANDO Administration Plan 74-year-old male with past medical history of Parkinson disease, prostatomegaly, and urine retention s/p UroLift was admitted to the hospital on 08/12/2024 due to GI bleed. #GI bleed #Gastritis #Normocytic normochromic anemia Patient came in with complaints of farida bright blood per rectum Patient's hemoglobin was stable on admission at 13.1, but baseline is around 15 from 07/14/24 Hemoglobin today is still at 12.9 Patient underwent EGD today which only showed erythematous gastric mucosa Plan: Will continue clear liquid diet and GoLytely for possible colonoscopy, not clear as of yet Will continue with Protonix GI consulted, appreciate commendations Will continue to monitor. #Distal DVT, right posterior tibial vein Patient had 3+ peripheral edema extending up to knees without calf tenderness on admission, but edema has significantly improved today to only some trace edema. Venous Doppler that showed acute DVT of the right posterior tibial vein Plan: Patient is currently having an active bleed therefore we will hold off on anticoagulation for now If cleared by GI after colonoscopy we will start anticoagulation. If patient does have a source of bleeding and anticoagulation is not indicated by GI we will likely require to place an IVC filter. #Hx of Parkinson disease #Hx of BPH Will continue with tamsulosin 0.5 mg daily, ropinirole 0.5 mg daily, and Rytary 3 times daily, and tizanidine 4 mg at bedtime #Urinary bladder calculus Found to have 4 mm calculus in the urinary bladder as per abdomen/pelvis CT Has only 1 RBC in urinalysis Outpatient urology follow-up #Degenerative disc disease Found to have advanced degenerative disc disease of lower 2 lumbar levels as per abdomen/pelvis CT Findings were present on his last visits as well Patient does not complain of pain, outpatient follow-up Disposition: Pending colonoscopy. Diet: CLD GI prophylaxis: protonix DVT prophylaxis: held due to active bleeding and no SCDs as distal DVT present Code: Full code Case disclosed with Attending Dr. Maximilian Haynes PGY1 Disclaimer: Even though this this note was dictated by speech recognition and even though it was carefully revised there may still be minor errors in tube depatcher due to voice recognition software. Attending Provider Attestation/Addendum I attest that I was physically present for the evaluation, physical examination, lab and imaging review of the patient with the residents. I discussed the case with the residents and agree with the findings and plans of care as documented above. At bedside today, patient does not have any complaints. Vital signs are stable. Hemoglobin is 12.9 from 13.4 yesterday. Rest of the labs were nonconcerning as well. Patient has been started on GoLytely, but not clear yet, awaiting colonoscopy. Sandrita Yao MD
--- NOTE | 2024-08-14 10:19 | PC.SS ---
Demarcus Stevens is a 74-year-old female admitted to [facility] for GI Bleed. SS conducted bedside contact with the patient to complete initial assessment and to discuss discharge planning. Role and reason explained. Patient confirmed demographic information. Patient identifies his Bhumika Stevens [phone] as his surrogate decision maker. Pt states he is able to complete all ADL?s independent, does assist with showers and meals. Pt uses walker, and possesses a cane and wheelchair as well. Pt has PCP but was unable to name, SS attempted to reach but no answer VM left. Pharmacy of choice is [facility]. Discharge options discussed and the pt wishes to return home. ?Family will provide transportation upon DC. No further intervention required at this time, licensed social worker would be available to address any further concerns. DC Plan: Home Contact: Bhumika Stevens [phone] Address: Confirmed on face sheet PCP: Unable to confirm
--- NOTE | 2024-08-14 14:33 | PC.SS ---
Rounding: Pt is pending a colonoscopy, will DC home when ready
--- NOTE | 2024-08-14 15:06 | SUR.PHASEI ---
pt arrived to PACU via gurney awake, alert, able to follow commands, breathing unlabored, report from Jessica FORDE
--- NOTE | 2024-08-14 15:35 | SUR.PHASEI ---
pt had a bowel movement, pt changed and positioned for comfort, pt tolerated oral fluids without difficulty swallowing or n/v
--- NOTE | 2024-08-14 15:55 | SUR.PHASEI ---
pt awake, alert, able to follow commands, breathing unlabored, VS stable, report called to Meaghan RN, pt transferred to room at this time.
[2024-08-14] MEDS: tiZANidine HCL 2 MG TABLET 4 MG PO (20:31)
[2024-08-15] VITALS (7 sets, daily range): BP systolic 113–157; BP diastolic 71–88; PULSE 56–90; RESP 14–22; TEMP 36.5–37.3; O2SAT 93–99; BMI 33.5
[2024-08-15] MEDS: CARBIDOPA LEVODOPA PO ×3 (05:17→21:00)
[2024-08-15 05:50] LABS: Basophils # (Auto) 0.1 Thou/mm3 (0.0-0.2); Basophils % (Auto) 1 % (0-2.5); Eosinophils # (Auto) 0.2 Thou/mm3 (0.0-0.5); Eosinophils % (Auto) 4 % (0-10); Hematocrit 38.6 % (41.0-53.0); Hemoglobin 12.7 g/dL (13.5-16.0); Immature Granulocytes % (Auto) 0 % (0-0); Immature Granulocytes Auto 0.01 Thou/mm3 (0.00-0.00); Lymphocytes # (Auto) 1.4 Thou/mm3 (1.0-4.8); Lymphocytes % (Auto) 22 % (10-50); Mean Corpuscular HGB Conc 32.9 g/dl (31.0-37.0); Mean Corpuscular Hemoglobin 29.7 pg (25.0-35.0); Mean Corpuscular Volume 90 fL (80-100); Monocytes # (Auto) 0.8 Thou/mm3 (0.0-0.8); Monocytes % (Auto) 12 % (0-12); Neutrophils # (Auto) 3.7 Thou/mm3 (1.8-7.7); Neutrophils % (Auto) 61 % (37-80); Nucleated Red Blood Cell % 0 /100 WBC (0); Platelet Count 148 Thou/mm3 (140-440); RDW Standard Deviation 41.7 fL (35.1-43.9); Red Blood Count 4.28 Miln/mm3 (4.50-5.90); White Blood Count 6.2 Thou/mm3 (3.8-10.6)
[2024-08-15 06:30] LABS: Alanine Aminotransferase < 7 U/L (10-49); Albumin, Serum 3.9 gm/dL (3.4-4.8); Albumin/Globulin Ratio 2.2 (1.2-2.2); Alkaline Phosphatase 55 U/L (46-116); Anion Gap 13 (7-16); Aspartate Amino Transferase 10 U/L (0-34); BUN/Creatinine Ratio 12 Ratio (12-20); Bilirubin,Total 0.7 mg/dL (0.3-1.2); Blood Urea Nitrogen 12 mg/dL (9-23); Calcium 8.7 mg/dL (8.3-10.6); Calcium (Corrected) 8.8 mg/dL (8.5-10.1); Carbon Dioxide 27.4 mMol/L (20.0-31.0); Chloride 110 mMol/L (98-107); Estimated Creatinine Clearance 69.8 mL/min (>60); Globulin 1.8 gm/dL (2.3-3.5); Glucose 108 mg/dL (74-106); Osmolality,Calculated 298 (275-295); Sodium 150 mMol/L (136-145); Total Protein 5.7 gm/dL (5.7-8.2); eGFR > 60 See Note
[2024-08-15] MEDS: [UNRECOGNIZED DRUG - OTHER] PO (08:39)
[2024-08-15] MEDS: rOPINIRole HCL 1 MG TABLET 0.5 MG PO (08:39)
[2024-08-15] MEDS: PANTOPRAZOLE 40 MG TABLET PO (08:39)
[2024-08-15] MEDS: TAMSULOSIN HCL 0.4 MG CAPSULE PO (08:39)
--- NOTE | 2024-08-15 11:00 | PC.SS ---
SS follow up: spoke with patient regarding recommendation for SNF from PT provider. The patient declined SNF at this time, however is agreeable to Home Health services. No preferred agency. Community resource handout provided to the patient at this time to review HH agencies.
--- NOTE | 2024-08-15 11:46 | ESPR_ITS ---
<Statement entered by Lee Corona MD - 08/16/24 08:00> 74-year-old male with history of prostatomegaly with urinary retention status post UroLift and Parkinson's disease who presented with bright red blood per rectum and subsequently admitted for lower GI bleed. During course of hospitalization, patient underwent EGD which showed erythematous gastric mucosa and subsequently underwent colonoscopy with findings of hemorrhoid grade 4 which were banded however no evidence of diverticular bleed. Currently, patient's hemoglobin has been stable. In addition, patient also noted to have right acute DVT and discussed case with gastroenterology who stated okay to start Eliquis. Had a discussion with family regarding risk and benefits of Eliquis including treatment of DVT and the risk of bleeding especially in his case given that he does have GI bleed however family wanted to proceed with anticoagulation and monitor closely at home. As of now, plan to start Eliquis and monitor closely.I reviewed above note and agree with findings and plans. I have also personally examined the patient with medicine team and went over assessment and plan with medical team including editorial intern and resident physician. <Statement entered by Karina Joy MD - 08/15/24 14:33> Patient seen and examined at bedside. Patient denies any overt bleeding at this time. No acute overnight events reported. Colonoscopy showed hemorrhoids grade 4 which were banded and moderate diverticulosis. Patient will require repeat colonoscopy in outpatient setting in the future time. Patient started on DVT prophylaxis with Eliquis 10 mg twice daily. Patient will need to be transition to 5 mg twice daily after 7 days. Anticipate discharge within 24 hours. The IM team discussed risk and benefits of anticoagulation with patient and patient's . I discussed with and supervised the editorial intern physician who took care of this patient. I personally saw and examined the patient and discussed the assessment and plan with the entire medicine team, including my attending Dr. Corona, I agree with most of the assessment and plan as documented below Karina Joy M.D. PGY-2 Disclaimer: Despite multiple revisions, due to the dictation software being used, the document bellow may not be free of grammatical errors including phonetic/typographic errors. However, this does not deter from our commitment to providing health care in the patient's best interest in mind. Documentation for date of: 08/15/24 Subjective Subjective Interval history: Patient was seen and examined at bedside this morning. Last night patient did have colonoscopy which showed hemorrhoids grade 4 which were banded and some moderate diverticulosis of the sigmoid colon and descending colon, otherwise no other active bleeding. Discussed with GI possibility of starting anticoagulation given patient's DVT and GI specialist stated that it was okay to start anticoagulation at this time. Discussed with patient and the risks and benefits of anticoagulation and they decided to proceed with anticoagulation. Exam Vital Signs Temp Pulse Resp BP Pulse Ox O2 Del Method O2 Flow Rate 97.7 F 56 L 17 132/76 H 96 Room Air 3 08/15/24 08:00 08/15/24 08:00 08/15/24 08:00 08/15/24 08:00 08/15/24 08:00 08/15/24 08:00 08/14/24 14:58 Narrative Exam General: A/O x3 (not to time, but able to state current president), no acute distress, well-nourished, well-developed Eyes: PERRL, EOMI. Anicteric, vision grossly intact. Ears: No ear pain, no ear discharge, Hearing grossly intact. Nose: No nasal discharge. Mouth/Throat: Moist mucous membranes, no redness, no lesions. Neck: Neck supple, non-tender, no cervical lymphadenopathy. Lungs: Clear PATIENCE to auscultation and percussion, No accessory muscle use. Cardio: Normal S1/S2, regular rhythm, no murmurs, no JVD Abdomen: Soft, mildly tender in epigastric region, no palpable masses, peristalsis present, no guarding or rebound. Extremities: Symmetrical, no significant deformities, trace peripheral edema , non-tender, peripheral pulses presents, tremor in PATIENCE UE. Skin: No rashes, no lesions, warm to touch. Neuro: No focal neurological deficits. Psych: Cooperative, appropriate mood and effect. Objective Labs 08/15/24 04:34 08/15/24 04:34 Labs: Laboratory Results - last 24 hr 08/15/24 04:34 WBC 6.2 RBC 4.28 L Hgb 12.7 L Hct 38.6 L MCV 90 MCH 29.7 MCHC 32.9 RDW Std Deviation 41.7 Plt Count 148 Neut % (Auto) 61 Lymph % (Auto) 22 [place] % (Auto) 12 Eos % (Auto) 4 Baso % (Auto) 1 Neut # (Auto) 3.7 Lymph # (Auto) 1.4 [place] # (Auto) 0.8 Eos # (Auto) 0.2 Baso # (Auto) 0.1 Immature Gran # (Auto) 0.01 H Absolute Nucleated RBC 0.00 Immature Gran % 0 Nucleated RBC % 0 Sodium 150 H Potassium 4.0 Chloride 110 H Carbon Dioxide 27.4 Anion Gap 13 BUN 12 Creatinine 1.0 Estim Creat Clear Calc 69.8 eGFR > 60 BUN/Creatinine Ratio 12 Glucose 108 H Calculated Osmolality 298 H Calcium 8.7 Corrected Calcium 8.8 Total Bilirubin 0.7 AST 10 ALT < 7 L Alkaline Phosphatase 55 Total Protein 5.7 Albumin 3.9 Globulin 1.8 L Albumin/Globulin Ratio 2.2 Quality Measures Quality Measures none Advance care planning discussed with:: patient, spouse and legal surragate Assessment & Plan Assessment Current Active Medications: Generic Name Dose Route Start Last Admin Trade Name Freq PRN Reason Stop Dose Admin Acetaminophen 650 mg 08/12/24 23:04 Acetaminophen 325 Mg Tablet PO 09/11/24 23:03 Q6H PRN Fever >100.3 or mild pain 1-3 (Carbidopa-Levodopa 0 ea 08/13/24 14:00 08/15/24 05:17 [Rytary] 61.25-245 PO 09/12/24 13:59 1 capsule Mg Capsule, Er TID FERNANDO Administration (Prucalopride 1 Mg 0 ea 08/13/24 11:45 08/15/24 08:39 Tablet) PO 09/12/24 11:44 1 tablet QDAY FERNANDO Administration Ondansetron HCl 4 mg 08/12/24 23:04 Ondansetron Inj 2 Mg/Ml Inj 2 Ml IVP 09/11/24 23:03 Q6H PRN NAUSEA OR VOMITING Protocol Pantoprazole Sodium 40 mg 08/15/24 09:00 08/15/24 08:39 Pantoprazole 40 Mg Tablet PO 09/14/24 08:59 40 mg QDAY FERNANDO Administration Protocol Ropinirole HCl 0.5 mg 08/13/24 09:00 08/15/24 08:39 Ropinirole Hcl 1 Mg Tablet PO 09/12/24 08:59 0.5 mg QAM FERNANDO Administration Tamsulosin HCl 0.4 mg 08/13/24 09:00 08/15/24 08:39 Tamsulosin Hcl 0.4 Mg Capsule PO 09/12/24 08:59 0.4 mg DAILY FERNANDO Administration Tizanidine HCl 4 mg 08/13/24 21:00 08/14/24 20:31 Tizanidine Hcl 2 Mg Tablet PO 09/12/24 20:59 4 mg HS FERNANDO Administration Plan 74-year-old male with past medical history of Parkinson disease, prostatomegaly, and urine retention s/p UroLift was admitted to the hospital on 08/12/2024 due to GI bleed. #GI bleed #Grade IV hemorrhoids s/p band #Gastritis #Normocytic normochromic anemia Patient came in with complaints of farida bright blood per rectum Patient's hemoglobin was stable on admission at 13.1, but baseline is around 15 from 07/14/24 Hemoglobin today is still at 12.7 Patient underwent EGD today which only showed erythematous gastric mucosa Colonoscopy which showed hemorrhoids grade 4 which were banded and some moderate diverticulosis of the sigmoid colon and descending colon Plan: Will monitor for bleed as started anticoagulation GI consulted, appreciate commendations Will continue to monitor. #Distal DVT, right posterior tibial vein Patient had 3+ peripheral edema extending up to knees without calf tenderness on admission, but edema has significantly improved today to only some trace edema. Venous Doppler that showed acute DVT of the right posterior tibial vein Plan: Will start Eliquis 10mg BID for 7 days then 5mg BID for DVT Tx #Hx of Parkinson disease #Hx of BPH Will continue with tamsulosin 0.5 mg daily, ropinirole 0.5 mg daily, and Rytary 3 times daily, and tizanidine 4 mg at bedtime #Urinary bladder calculus Found to have 4 mm calculus in the urinary bladder as per abdomen/pelvis CT Has only 1 RBC in urinalysis Outpatient urology follow-up #Degenerative disc disease Found to have advanced degenerative disc disease of lower 2 lumbar levels as per abdomen/pelvis CT Findings were present on his last visits as well Patient does not complain of pain, outpatient follow-up Disposition: Monitoring next 24 hrs for bleed as started Eliquis Diet: regular GI prophylaxis: protonix DVT prophylaxis: Eliquis Code: Full code Case disclosed with Attending Dr. Corona and my senior Dr. Rufino Haynes PGY1 Disclaimer: Even though this this note was dictated by speech recognition and even though it was carefully revised there may still be minor errors in film cutter due to voice recognition software.
--- NOTE | 2024-08-15 11:56 | PC.PT ---
PT spoke on the phone with Dr. Bell regarding if this PT was safe to see the patient today due to DV in the R posterior tibial vein. Dr. Bell cleared this PT to work with the patient at 9:50 as per MD, patient will be discharged home with anticoagulant medication.
[2024-08-15] MEDS: APIXABAN 2.5 MG TABLET 10 MG PO ×2 (12:24→20:28)
[2024-08-15] MEDS: ACETAMINOPHEN 325 MG TABLET 650 MG PO (19:35)
--- NOTE | 2024-08-15 19:38 | PD.IMPROG ---
Documentation for date of: 08/15/24 Subjective Subjective Interval history: Patient evaluated Hemoglobin hematocrit 12.7 and 38.6 Colonoscopy showed internal hemorrhoids which are large and inflamed requiring band ligation in total 3 bands were put in Upper endoscopy showed gastritis and duodenitis Exam Vital Signs Temp Pulse Resp BP Pulse Ox O2 Del Method O2 Flow Rate 99.2 F 76 17 113/71 93 L Room Air 3 08/15/24 16:00 08/15/24 16:00 08/15/24 16:00 08/15/24 16:00 08/15/24 16:00 08/15/24 16:00 08/14/24 14:58 Objective Labs 08/15/24 04:34 08/15/24 04:34 Labs: Laboratory Results - last 24 hr 08/15/24 04:34 WBC 6.2 RBC 4.28 L Hgb 12.7 L Hct 38.6 L MCV 90 MCH 29.7 MCHC 32.9 RDW Std Deviation 41.7 Plt Count 148 Neut % (Auto) 61 Lymph % (Auto) 22 [place] % (Auto) 12 Eos % (Auto) 4 Baso % (Auto) 1 Neut # (Auto) 3.7 Lymph # (Auto) 1.4 [place] # (Auto) 0.8 Eos # (Auto) 0.2 Baso # (Auto) 0.1 Immature Gran # (Auto) 0.01 H Absolute Nucleated RBC 0.00 Immature Gran % 0 Nucleated RBC % 0 Sodium 150 H Potassium 4.0 Chloride 110 H Carbon Dioxide 27.4 Anion Gap 13 BUN 12 Creatinine 1.0 Estim Creat Clear Calc 69.8 eGFR > 60 BUN/Creatinine Ratio 12 Glucose 108 H Calculated Osmolality 298 H Calcium 8.7 Corrected Calcium 8.8 Total Bilirubin 0.7 AST 10 ALT < 7 L Alkaline Phosphatase 55 Total Protein 5.7 Albumin 3.9 Globulin 1.8 L Albumin/Globulin Ratio 2.2 Impressions Impression: Gastritis Duodenitis Large inflamed internal hemorrhoids requiring band ligation Assessment & Plan A&P Narrative # Occult GI bleeding Plan consent obtained for fiberoptic esophagogastroduodenoscopy with possible biopsy possible therapeutic intervention under intravenous moderate sedation scheduled for tomorrow morning N.p.o. midnight tonight IV Protonix Serial CBC Will follow the patient Other medical problems include Parkinson disease continue carbidopa levodopa Thank you very much for the opportunity to participate in the care of this patient Time Spent With Patient Time: Total time spent is greater than 50% in coordination of care (as documented) at patient's floor/unit and/or counseling patient:
[2024-08-15] MEDS: tiZANidine HCL 2 MG TABLET 4 MG PO (20:28)
[2024-08-16] VITALS: PULSE 58
[2024-08-16 04:00] VITALS: BP 141/67; PULSE 60; PULSE 63; RESP 12; TEMP 37.1; O2SAT 97
[2024-08-16] MEDS: CARBIDOPA LEVODOPA PO (05:34)
[2024-08-16 05:53] VITALS: BMI 33.5
[2024-08-16 06:11] LABS: Basophils % (Auto) 0 % (0-2.5); Eosinophils # (Auto) 0.2 Thou/mm3 (0.0-0.5); Eosinophils % (Auto) 4 % (0-10); Hematocrit 39.2 % (41.0-53.0); Hemoglobin 13.3 g/dL (13.5-16.0); Immature Granulocytes % (Auto) 0 % (0-0); Immature Granulocytes Auto 0.03 Thou/mm3 (0.00-0.00); Lymphocytes # (Auto) 1.4 Thou/mm3 (1.0-4.8); Lymphocytes % (Auto) 21 % (10-50); Mean Corpuscular HGB Conc 33.9 g/dl (31.0-37.0); Mean Corpuscular Hemoglobin 30.4 pg (25.0-35.0); Mean Corpuscular Volume 90 fL (80-100); Monocytes # (Auto) 0.7 Thou/mm3 (0.0-0.8); Monocytes % (Auto) 10 % (0-12); Neutrophils # (Auto) 4.4 Thou/mm3 (1.8-7.7); Neutrophils % (Auto) 65 % (37-80); Nucleated Red Blood Cell % 0 /100 WBC (0); Platelet Count 146 Thou/mm3 (140-440); RDW Standard Deviation 41.2 fL (35.1-43.9); Red Blood Count 4.38 Miln/mm3 (4.50-5.90); White Blood Count 6.8 Thou/mm3 (3.8-10.6)
[2024-08-16 06:56] LABS: Alanine Aminotransferase < 7 U/L (10-49); Albumin, Serum 3.8 gm/dL (3.4-4.8); Albumin/Globulin Ratio 1.9 (1.2-2.2); Alkaline Phosphatase 56 U/L (46-116); Anion Gap 11 (7-16); Aspartate Amino Transferase < 10 U/L (0-34); BUN/Creatinine Ratio 13 Ratio (12-20); Bilirubin,Total 0.7 mg/dL (0.3-1.2); Blood Urea Nitrogen 12 mg/dL (9-23); Calcium 8.7 mg/dL (8.3-10.6); Calcium (Corrected) 8.9 mg/dL (8.5-10.1); Carbon Dioxide 25.2 mMol/L (20.0-31.0); Chloride 108 mMol/L (98-107); Creatinine (Component) 0.9 mg/dL (0.6-1.3); Estimated Creatinine Clearance 77.5 mL/min (>60); Glucose 118 mg/dL (74-106); Osmolality,Calculated 287 (275-295); Potassium 3.9 mMol/L (3.4-5.1); Sodium 144 mMol/L (136-145); Total Protein 5.8 gm/dL (5.7-8.2); eGFR > 60 See Note
[2024-08-16 08:00] VITALS: BP 147/85; PULSE 64; PULSE 73; RESP 13; TEMP 36.9; O2SAT 96
[2024-08-16] MEDS: PANTOPRAZOLE 40 MG TABLET PO (08:28)
[2024-08-16] MEDS: APIXABAN 2.5 MG TABLET 10 MG PO (08:29)
[2024-08-16] MEDS: rOPINIRole HCL 1 MG TABLET 0.5 MG PO (08:29)
[2024-08-16] MEDS: [UNRECOGNIZED DRUG - OTHER] PO (08:29)
[2024-08-16] MEDS: TAMSULOSIN HCL 0.4 MG CAPSULE PO (08:29)
--- NOTE | 2024-08-16 09:51 | PC.SS ---
Update: Plan is to d/c the patient home with home health today.
--- NOTE | 2024-08-16 10:43 | ESDS_ITS ---
<Statement entered by Lee Corona MD - 08/23/24 15:44> I reviewed above note and agree with findings and plans. I have also personally examined the patient with medicine team and went over assessment and plan with medical team including paid internship and resident physician. Planned Discharge Date 08/16/24 DS: Providers Provider Date of admission: 08/12/24 23:04 Primary care physician: Physician No Primary/Family Admitting Provider: Umang Sanchez MD Attending Provider on Admission: Lee Corona MD Consults: 08/12/24 18:27 Consult to Gastroenterology Stat Comment: Lower GI bleed Consulting Provider: Bernie Hines 08/14/24 18:23 Referral Physical Therapy Routine Comment: Physician Instructions: Attending Provider on DC: Karina Joy MD Discharging Provider: Karina Joy MD DS: Diagnosis Problem List Completed Was Problem List Reviewed/Reconciled?: Yes Hospital Course Hospital Course Hospital course: Mr. Stevens is a 74-year-old male with past medical history of Parkinson disease, prostatomegaly, and urine retention s/p UroLift who presented with farida bright blood per rectum and admitted to the hospital on 08/12/2024 due to GI bleed. GI was consulted and patient underwent EGD today which only showed erythematous gastric mucosa. Colonoscopy which showed hemorrhoids grade 4 which were banded and some moderate diverticulosis of the sigmoid colon and descending colon. Patient also presented with 3+ peripheral edema extending up to knees without calf tenderness on admission. Venous Doppler that showed acute DVT of the right posterior tibial vein. Patient was started on Eliquis 10mg twice daily and was to transition to 5mg twice daily. However, prior to discharge, patient's was concerned with patient's blood per rectum s/p Eliquis dose. After shared decision making and weighing risks and benefits, told patient's to lower the dose to 5mg twice or once daily and see how patient tolerates. Pt seen and examined at bedside. Pt denies any complaints and hemoglobin had been stable. Pt is medically cleared to be discharged today with the following instructions: Please follow-up with primary care physician within 1 week upon discharge Please folow up with your GI and urology specialist within 1-2 weeks Start taking Apixaban 5mg twice or once daily and see how patient tolerates Please continue taking all home medications as prescribed Please come back to the ED if symptoms persist or worsen Please avoid any NSAIDs. Hospital discharge diagnoses treated during hospital stay: #GI bleed #Grade IV hemorrhoids s/p band #Gastritis #Normocytic normochromic anemia #Distal DVT, right posterior tibial vein #Hx of Parkinson disease #Hx of BPH #Urinary bladder calculus #Degenerative disc disease Patient's plan and care discussed with my attending, Dr. Chloe Joy MD PGY-2 Status at Discharge Cognitive/behavioral status at discharge: stable Time Spent with Patient Time attestation: Total time spent providing and/or coordinating discharge services: 35 Time spent: Greater than 30 minutes Home Health Home Health Referral Orders: 08/16/24 09:44 Home Health Referral Routine Reason For Exam: PT Home-Bound The patient must either because of illness or injury, need the aid of supportive devices such as crutches, canes, wheelchairs, and walkers; the use of special transportation; or the assistance of another person in order to leave their place of residence; OR have a condition such that leaving his or her home is medically contraindicated. In addition, the patient also meets the following criteria: patient is normally unable to leave the home and leaving home requires considerable taxing effort. Addendum to Home Health Certification Practitioner's Certification: I certify that the patient has been under my care in the hospital and the care of attending physician (see below). We had a [id number] encounter on (see date below). My clinical findings indicate that the patient is home bound per the above criteria and the Home Health Services noted in these orders are medically necessary. The primary reason for the [id number] encounter is related to the fact that the patient requires home health services. Date Certifying [facility]kv[facility] Physician Encounter: 08/12/24 Physician's Name who will Assume Oversight for HH Services: Physician No Primary/Family RAIL SWITCH OPERATOR - Community Resources: No PT to Evaluate: Yes PT to evaluate and provide a treatmnet plan to increase patient's mobility and strength. Wound Care: No IV Therapy: No RN Safety Evaluation: Yes RN to evaluate and create a plan of care that will produce positive outcomes. Palliative Treatment: No Palliative treatment and evaluate the need for hospice. Home Health Aide - Personal Care: No Home Health Aide to assist with any ADL's. Exam Vital Signs Temp Pulse Resp BP Pulse Ox O2 Del Method O2 Flow Rate 98.5 F 64 13 147/85 H 96 Room Air 3 08/16/24 08:00 08/16/24 08:00 08/16/24 08:00 08/16/24 08:00 08/16/24 08:00 08/16/24 08:00 08/15/24 23:45 Narrative Exam General: A/O x3 (not to time, but able to state current president), no acute distress, well-nourished, well-developed HEENT: NC/AT, no scleral icterus, no conjunctival pallor, MMM Lungs: Clear PATIENCE to auscultation and percussion, No accessory muscle use. Cardio: Normal S1/S2, regular rhythm, no murmurs, no JVD Abdomen: Soft, mildly tender in epigastric region, no palpable masses, peristalsis present, no guarding or rebound. Extremities: Symmetrical, no significant deformities, trace peripheral edema , non-tender, peripheral pulses presents, tremor in PATIENCE UE. Skin: No rashes, no lesions, warm to touch. Neuro: Alet and oriented x 3 to name, place, and time (able to state current president). Motor and sensory grossly intact b/l. No focal neurological deficits. Psych: Cooperative, appropriate mood and effect. Discharge Plan Plan Patient Disposition: Home w/HOME HEALTH Care Plan Goals: Please follow-up with primary care physician within 1 week upon discharge Start taking Apixaban 10mg twice daily until end of day 08/21/24 Start taking Apixaban 5mg twice daily after that for at least three months Please continue taking all home medications as prescribed Please come back to the ED if symptoms persist or worsen Please avoid any NSAIDs. Prescriptions/Referrals Prescriptions/Med Rec: New Eliquis DVT-PE Treat 30D Start 5 mg (74 tabs) tablets,dose pack 5 mg PO BID Qty: 74 0RF Rx Instructions: Take 10mg twice daily until end of 08/21/24 for a total of 6 more days After, start taking 5mg twice daily Continued ropinirole 1 mg tablet 0.5 mg PO QAM tamsulosin 0.4 mg capsule 0.4 mg PO DAILY Patient Comments: GENERIC FOR FLOMAX... TAKE 1 CAPSULE BY MOUTH EVERY DAY Rytary 61.25-245 mg capsule, extended release 1 cap PO TID Rx Instructions: divide evenly over waking hours ropinirole 0.5 mg tablet 0.5 mg PO DAILY Patient Comments: TAKE 1 TABLET BY MOUTH EVERY MORNING AND 2 TABLETS BY MOUTH AT NIGHT prucalopride 1 mg tablet 1 mg PO DAILY Patient Comments: TAKE 1 TABLET BY MOUTH DAILY sennosides [senna] 8.6 mg tablet 17.2 mg PO HS PRN (Reason: constipation) Patient Comments: TAKE 2 TABLETS BY MOUTH DAILY AT BEDTIME NEEDED tizanidine 4 mg tablet 4 mg PO HS Patient Comments: TAKE 1 TO 2 TABLETS BY MOUTH AT NIGHT melatonin 10 mg capsule 10 mg PO HS Referrals: No Primary/Family,Physician [Primary Care Provider] - Patient/Caregiver Discharge Instructions Discharge Activity: as per physical therapy Print Language: Icelandic Stand Alone Forms: Roxy Award Info., Patient Portal Info Letter Discharge Order Discharge Orders: Discharge (Routine); Ordered 08/16/24 Ordered By: Karina Joy Quality Discharge Quality Measures VTE therapy
--- NOTE | 2024-08-16 10:57 | PC.CC ---
HH ref initiated, need to send ref.
[2024-08-16 12:00] VITALS: BP 138/77; PULSE 72; RESP 14; TEMP 37.1; O2SAT 95
--- NOTE | 2024-08-16 13:04 | PD.IMPROG ---
Documentation for date of: 08/16/24 Subjective Subjective Interval history: Evaluate the patient at the request of the RN prior to discharge There was some bleeding in the toilet bowl patient has been started on Eliquis 10 mg twice daily for event thrombosis Given the option to the family to keep him a father day The family wants to take the patient home I told him of the bleeding gets worse he might have a diverticular source of bleeding or one of the bands of the hemorrhoids may have come off And they will bring the patient back to the ER Exam Vital Signs Temp Pulse Resp BP Pulse Ox O2 Del Method O2 Flow Rate 98.7 F 72 14 138/77 H 95 Room Air 3 08/16/24 12:00 08/16/24 12:00 08/16/24 12:00 08/16/24 12:00 08/16/24 12:00 08/16/24 12:00 08/15/24 23:45 Objective Labs 08/16/24 05:10 08/16/24 05:10 Labs: Laboratory Results - last 24 hr 08/16/24 05:10 WBC 6.8 RBC 4.38 L Hgb 13.3 L Hct 39.2 L MCV 90 MCH 30.4 MCHC 33.9 RDW Std Deviation 41.2 Plt Count 146 Neut % (Auto) 65 Lymph % (Auto) 21 [place] % (Auto) 10 Eos % (Auto) 4 Baso % (Auto) 0 Neut # (Auto) 4.4 Lymph # (Auto) 1.4 [place] # (Auto) 0.7 Eos # (Auto) 0.2 Baso # (Auto) 0.0 Immature Gran # (Auto) 0.03 H Absolute Nucleated RBC 0.00 Immature Gran % 0 Nucleated RBC % 0 Sodium 144 Potassium 3.9 Chloride 108 H Carbon Dioxide 25.2 Anion Gap 11 BUN 12 Creatinine 0.9 Estim Creat Clear Calc 77.5 eGFR > 60 BUN/Creatinine Ratio 13 Glucose 118 H Calculated Osmolality 287 Calcium 8.7 Corrected Calcium 8.9 Total Bilirubin 0.7 AST < 10 ALT < 7 L Alkaline Phosphatase 56 Total Protein 5.8 Albumin 3.8 Globulin 2.0 L Albumin/Globulin Ratio 1.9 Impressions Impression: Hematochezia status post band ligation rectal bleeding secondary to hemorrhoidal bleeding status post band ligation plan As in the HPI Assessment & Plan A&P Narrative # Occult GI bleeding Plan consent obtained for fiberoptic esophagogastroduodenoscopy with possible biopsy possible therapeutic intervention under intravenous moderate sedation scheduled for tomorrow morning N.p.o. midnight tonight IV Protonix Serial CBC Will follow the patient Other medical problems include Parkinson disease continue carbidopa levodopa Thank you very much for the opportunity to participate in the care of this patient Time Spent With Patient Time: Total time spent is greater than 50% in coordination of care (as documented) at patient's floor/unit and/or counseling patient:
--- NOTE | 2024-08-16 13:38 | PC.NURSE ---
Patient experienced small amount of bleeding per rectum, MD Donny and MD Jos notified. Donny seen patient at bedside and stated that the small amount of bleeding is normal and that patient can be discharged home. PIV removed, d/c instructions given, MD Kent (hospitalist team) came to bedside to see patient and educated family on medication and d/c instructions.
[2024-08-16 13:47] VITALS: BP 129/78; PULSE 87; RESP 26; TEMP 37.3; O2SAT 97
--- NOTE | 2024-08-16 15:02 | PC.SS ---
Rounding Note: Patient to d//c home with home health.
--- NOTE | 2024-08-18 13:26 | PC.CM ---
[facility] accepted patient. Pending start of care date.
--- NOTE | 2024-08-19 08:12 | PC.CC ---
Addendum entered by Karissa Riley RN 08/19/24 09:13: I saw on [facility] that pt came to ER yesterday and he was sent to [facility] from there. I updated [facility] via [employer] and cancel the HH referral. Addendum entered by Karissa Riley RN 08/19/24 09:11: Reached out to [facility] for start of care date. Dana from [facility] responded on [employer] ''we attempted to schedule yesterday and patient stated he is going to a SNF. Original Note: DC summary and dc orders sent to [facility]. Pending start of care date.
== END 2024-08-16 13:35 | disposition home health service (06) | DRG 348 ==
LOC: SERX 22:59 → SERHOLD 23:23 → S2NX 08-13 01:15
PROVIDERS: Nurse Practitioner Primary Care; Specialist; Admitting Provider Student in an Organized Health Care Education/Training Program; Emergency Provider Family Medicine; Visit Provider Internal Medicine
PROC: (CPT 43239; principal; 2024-08-13 08:15)
PROC: 0DJD8ZZ Inspection of Lower Intestinal Tract, Via Natural or Artificial Opening Endoscopic (ICD-10-PCS; CPT 45378; principal; 2024-08-14 12:30)
DX: K57.31 Diverticulosis of large intestine without perforation or abscess with bleeding (principal); D62 Acute posthemorrhagic anemia; I82.441 Acute embolism and thrombosis of right tibial vein; G20.A1 Parkinson's disease without dyskinesia, without mention of fluctuations; N40.0 Benign prostatic hyperplasia without lower urinary tract symptoms; N21.0 Calculus in bladder; K59.00 Constipation, unspecified; K29.81 Duodenitis with bleeding; K31.89 Other diseases of stomach and duodenum; K29.71 Gastritis, unspecified, with bleeding; K64.3 Fourth degree hemorrhoids; M51.369 Other intervertebral disc degeneration, lumbar region without mention of lumbar back pain or lower extremity pain; K29.70 Gastritis, unspecified, without bleeding; Z86.16 Personal history of COVID-19; Z79.01 Long term (current) use of anticoagulants; Z88.2 Allergy status to sulfonamides; Z88.8 Allergy status to other drugs, medicaments and biological substances; R03.0 Elevated blood-pressure reading, without diagnosis of hypertension; K59.09 Other constipation; Z96.653 Presence of artificial knee joint, bilateral
CPT/HCPCS: 36415; 74177; 76705; 80053; 81001; 83690; 85025; 85610; 85730; 93306; 93970; 96374; 97162; 99285; A4217; A4649; J1200; J2250; J2470; J3010; Q9967; A9270

== ENCOUNTER 2024-08-18 09:03 | Emergency (ER) | payer MEDICARE, BC, SELFPAY ==
[2024-08-18 09:05] VITALS: BP 104/64; PULSE 61; PULSE 83; RESP 12; RESP 18; TEMP 36.6; O2SAT 100; O2SAT 94; BMI 34.2
--- NOTE | 2024-08-18 09:13 | XR_ITS ---
Examination: AP chest single view TECHNIQUE: AP portable semiupright chest single view Date and time: July 24, 2024 0942 hours Comparison April 23, 2024 INDICATIONS: Chest pain beginning 3 days ago. FINDINGS: Normal heart size Lungs are clear Trachea is deviated to the left No pneumonia or pulmonary edema IMPRESSION: Tracheal deviation to the left, consider thyroid sonography follow-up to exclude right thyromegaly
--- NOTE | 2024-08-18 09:13 | XR_ITS ---
Examination: CT brain head without contrast. 2-D sagittal coronal reconstructions Date and time of exam:August 18, 2024 0930 hours Comparison April 23, 2024 INDICATIONS: Altered mental status today CTDI: vol (mGy):51.5 DLP: (mGycm):1052 Technique: Multiple CT axial sections of the brain have been obtained, 5 mm slice thickness. Contrast has not been administered. 2-D sagittal, coronal reconstructions have been obtained Low dose protocols were performed. One or more of the following dose reduction techniques were used; automated exposure control, adjustment of the mA and/or KV according to patient size, use of iterative reconstruction technique. Findings: No significant ventricular enlargement. Intra-axial or extra-axial hemorrhage density is not seen. No mass effect or midline shift Basal cisterns are not remarkable. Fourth ventricle is midline. Cranial vault intact. Impression: Negative for acute hemorrhage, mass effect or midline shift Advise clinical correlation follow-up accordingly
--- NOTE | 2024-08-18 09:13 | EKG_ITS ---
[facility] Test Date: 2024-08-18 Pat Name: VALENTIN HAMMOND Department: Room: - Gender: Male Apartment Locator: : 1950 Requested By: Jackeline Sears Order Number: [id number] Reading MD: Jackeline Sears Measurements Intervals [place] Rate: 58 P: 76 PA: 193 QRS: -16 QRSD: 104 T: 30 QT: 388 QTc: 383 Interpretive Statements SINUS BRADYCARDIA MINIMAL VOLTAGE CRITERIA FOR LVH, CONSIDER NORMAL VARIANT [MEETS CRITERIA IN ONE OF: R(aVL), S(V1), R(V5), R(V5/V6)+S(V1)] SEPTAL MYOCARDIAL INFARCTION , OF INDETERMINATE AGE [40+ ms Q WAVE IN V1/V2] Compared to ECG 11/03/2022 14:37:19 Myocardial infarct finding now present Sinus tachycardia no longer present T-wave abnormality no longer present Possible ischemia no longer present /store/S0/[id number]/[id number].pdf
--- NOTE | 2024-08-18 09:35 | EDNOTE_ITS ---
ED Weakness RME/HPI General Stated complaint: HYPOTENSION Time Seen by Provider: 08/18/24 09:07 Arrival date/time: 08/18/24 09:03 RME / HPI RME / HPI Narrative: 74 year old male with history Parkinson's disease, hypertension, diabetes, hy perlipidemia, BPH, s/p transurethral prostatectomy, s/p left knee replacement presents to the ED BIBA from home for evaluation of hypotension, global weakness, and feeling sluggish today. Per medics, on scene reported the SBP to be 83. Per medics, en route to ED SBP was 86 and started on IV Lactated Ringers, ~ 100mls infused. Prehospital BS 126. On arrival to ED BP 116/63. Patient reports he was just evaluated at [facility] [address] yesterday for blood in urine. Per discharge PPW from [facility], the CT abdomen and pelvis wo con showed a 5mm right ureterovesical junction stone and was discharged home, diagnosed with hematuria and kidney stone. No medications were prescribed. No other complaints reported. Denies fever, chills, sweating. Denies chest pain, cough, shortness of breath. Denies nausea, vomiting, diarrhea, constipation. Related Data Home Medications ?Medication ?Instructions ?Recorded ?Confirmed ropinirole 1 mg tablet 0.5 mg PO QAM 11/03/2208/12 tamsulosin 0.4 mg capsule 0.4 mg PO DAILY 11/03/22 carbidopa ER 61.25 mg-levodopa 245 1 cap PO TID 08/12/24 mg capsule,extended release (Rytary) prucalopride 1 mg tablet 1 mg PO DAILY 08/12/2408/12 ropinirole 0.5 mg tablet 0.5 mg PO DAILY 08/12/24 melatonin 10 mg capsule 10 mg PO HS 08/13/2408/13/ 5 sennosides 8.6 mg tablet (senna) 17.2 mg PO HS PRN con stipation 08/13/24 08/13/24 tizanidine 4 mg tablet 4 mg PO HS 08/13/24 08/13/24 Previous Rx's ?Medication ?Instructions ?Recorded apixaban 5 mg (74 tabs) tablets in 5 mg PO BID #74 tab s 08/16/24 a dose pack (EliQoL Meds DVT-PE Treat 30D Start) cephalexin 500 mg capsule 500 mg PO TID #21 caps 08/18 Allergies Allergy/AdvReac Type Severity Reaction Status Date / Time Sulfa (Sulfonamide Allergy Intermediate Swelling Verified 08/18/24 18:33 Antibiotics) of Lip/Tongue/Throat lorazepam (From Ativan) AdvReac Unknown Confusion Verified 08/18/24 18:33 Review of Systems Review of Systems Narrative Review of Systems: GEN: No fever, no chills, no weight loss, +global weakness EYES: No discharge, no visual changes, no pain HEENT: No ear pain, no congestion, no sore throat PULM: No shortness of breath, no cough, no congestion CV: No chest pain, no dyspnea on exertion, no palpitations GI: No nausea, no vomiting, no diarrhea, no pain, no constipation : No frequency, no urgency, no dysuria MUSC/SKEL: No joint pain, no back pain SKIN: No rash NEURO: No headache Past Medical History Past Medical History NEUROLOGIC: Positive Dementia and Parkinson's Disease CARDIAC: Positive Cardiac Disorders, Angina, Hypercholesterolemia and Hypertension RESPIRATORY: Positive Sleep Apnea (does not use cpap anymore. O2 concentrator 2L at night.) GASTROINTESTINAL: Positive Gastrointestinal Disorders, Gastroesophageal Reflux Disease and Obesity GENITOURINARY: Positive Genitourinary Disorders (hx of uti) and Benign Prostatic Hyperplasia MUSCULOSKELETAL: Positive Arthritis (left knee) and Fractures ENDOCRINE: Positive Diabetes Mellitus Type 2 PSYCHO/SOCIAL: Positive Depression OTHER HISTORY: Positive Hospitalization and Anesthesia Reactions Family History FAMILY HISTORY: Positive Family Cardiac Disorders (mom chf) Surgical History SURGICAL: Positive Tonsillectomy, Transurethral Resection and Joint Replacement Social History SMOKING STATUS: Never smoker SECOND HAND EXPOSURE: No ED Exam Narrative Physical exam: GENERAL APPEARANCE: Drowsy but arousable, well-developed, well-nourished, pallor HEENT: Normocephalic, atraumatic; pupils pinpointt; EOMI; mucous membranes pink, moist; oropharynx clear NECK: Supple LUNGS: CTABL; no wheezes, no rales, no rhonchi HEART: Regular rate, regular rhythm; normal S1, S2; no murmurs ABDOMEN: non distended; normal BS; soft, no tenderness, no guarding, no rebound; no masses, no organomegaly, no hernia BACK: no CVA tenderness EXTREMITIES: atraumatic; non pitting edema BLE; healed surgical scar left knee; ecchymosis NEUROLOGIC: Drowsy but arousable; oriented x4; cranial nerves II-XII grossly intact; no focal sensory or motor deficits PSYCHIATRIC: appropriate mood and affect SKIN: warm, dry, normal color; no rashes Course Quality Measures none Orders Category Date Time Status Process Control Specialist NOW Care 08/18/24 09:13 Active EKG (ED ONLY) *Do not use* NOW Care 08/18/24 09:13 Completed Referral Physical Therapy Stat Cons 08/18/24 14:[address] head/brain wo con Stat Exams 08/18/24 09:13 Completed EKG (ED Only) Stat Exams 08/18/24 09:13 Draft XR chest 1V portable Stat Exams 08/18/24 09:13 Completed ABG [Arterial Blood Gas] Stat Lab 08/18/24 12:07 Completed B-Type Natriuretic Peptide Stat Lab 08/18/24 09:24 Completed Blood Culture (Lab) Stat Lab 08/18/24 09:24 Received CBC Stat Lab 08/18/24 09:24 Completed Comprehensive Metabolic Panel Stat Lab 08/18/24 09:24 Completed Drug Screen,Urine Stat Lab 08/18/24 11:55 Completed Lactate (Lactic Acid) Stat Lab 08/18/24 09:24 Completed Lipase Stat Lab 08/18/24 09:24 Completed Magnesium Stat Lab 08/18/24 09:24 Completed Partial Thromboplastin Time Stat Lab 08/18/24 09:24 Completed Procalcitonin Stat Lab 08/18/24 09:24 Completed Prothrombin Time with INR Stat Lab 08/18/24 09:24 Completed Troponin I Stat Lab 08/18/24 09:24 Completed Urinalysis Stat Lab 08/18/24 11:55 Completed Urine Culture Stat Lab 08/18/24 11:50 Received Vital Signs Vital signs: Vital Signs Temperature 97.9 F 08/18/24 09:05 Pulse Rate 61 08/18/24 09:05 Respiratory Rate 18 08/18/24 09:05 Blood Pressure 104/64 08/18/24 09:05 Pulse Oximetry (%) 94 L 08/18/24 09:05 Oxygen Delivery Method Room Air 08/18/24 09:05 Weakness MDM Narrative MDM Narrative:: Shelby Chowdhury am scribing for and in the presence of Dr. Maravilla. Patient at bedside. Discussed todays results, analysis, and treatment plans. The is requesting patient to be placed in a SNF. vice president of consulting services was consulted. I reviewed previous CXR on 11/10/2021 that did not show tracheal deviation but on 11/03/2022, 1 year later, the patient has tracheal deviation and was mentioned again on CXR today. 1645: Notified by ASW that the patient has been accepted at [facility], pending EMS transfer. Patient data External records reviewed:: [facility] previous records (I reviewed admission from 08/12/24 through 08/16/2024 for lower GI bleed ) Clinical information provided by:: patient and EMS Social determinants that could affect healthcare access:: none Patient has the following chronic illnesses:: Parkinson's disease, hypertension, diabetes, hyperlipidemia, BPH, s/p transurethral prostatectomy, s/p left knee replacement How is presenting disease/condition affected by chronic disease/condition?: exacerbated by Evaluation data The following diagnostics were reviewed and interpreted by me:: lab results, radiology exam(s) and EKG tracing(s) (EKG @ 0925 shows sinus bradycardia, rate 58, no acute ischemic changes. ) Lab and/or radiology exams considered but not ordered:: None Interpretation Summary: Ordering Physician: Jackeline Maravilla MD Date of Service: 08/18/24 Procedure(s): XR chest 1V portable Accession Number(s): [id number] cc: Malcom Sunshine MD; NO PRIMARY/FAMILY,PHYSICIAN; Jackeline Maravilla MD~ Examination: AP chest single view TECHNIQUE: AP portable semiupright chest single view Date and time: July 24, 2024 0942 hours Comparison April 23, 2024 INDICATIONS: Chest pain beginning 3 days ago. FINDINGS: Normal heart size Lungs are clear Trachea is deviated to the left No pneumonia or pulmonary edema IMPRESSION: Tracheal deviation to the left, consider thyroid sonography follow-up to exclude right thyromegaly Dictated By: Malcom Sunshine MD Signed By: <Electronically signed by Malcom Sunshine MD in OV> 08/18/24 0951 ======== Ordering Physician: Jackeline Maravilla MD Date of Service: 08/18/24 Procedure(s): CT head/brain wo con Accession Number(s): [id number] cc: Malcom Sunshine MD; NO PRIMARY/FAMILY,PHYSICIAN; Jackeline Maravilla MD~ Examination: CT brain head without contrast. 2-D sagittal coronal reconstructions Date and time of exam:August 18, 2024 0930 hours Comparison April 23, 2024 INDICATIONS: Altered mental status today CTDI: vol (mGy):51.5 DLP: (mGycm):1052 Technique: Multiple CT axial sections of the brain have been obtained, 5 mm slice thickness. Contrast has not been administered. 2-D sagittal, coronal reconstructions have been obtained Low dose protocols were performed. One or more of the following dose reduction techniques were used; automated exposure control, adjustment of the mA and/or KV according to patient size, use of iterative reconstruction technique. Findings: No significant ventricular enlargement. Intra-axial or extra-axial hemorrhage density is not seen. No mass effect or midline shift Basal cisterns are not remarkable. Fourth ventricle is midline. Cranial vault intact. Impression: Negative for acute hemorrhage, mass effect or midline shift Advise clinical correlation follow-up accordingly Dictated By: Malcom Sunshine MD Signed By: <Electronically signed by Malcom Sunshine MD in OV> 08/18/24 0953 Medications / Prescriptions Medications or Prescriptions considered but not ordered:: None Medication administrations:: See above Consultations Consultation(s) initiated? (list below): No Diagnosis Weakness Differential Diagnosis: acute myocardial infarction, anemia, hypoglycemia, hypothyroidism, sepsis and dehydration Most likely diagnosis given after review of the tests above:: Hypotension UTI Tracheal deviation Admission Indicated Admission indicated?: not indicated Admission Request Was there a request for admission?: No Disposition Plan Disposition Plan: Transfer (to SNF ) Discharge Plan Plan Patient Disposition: Xfer Skilled Nsg Fac (SNF) Prescriptions/Referrals Prescriptions/Med Rec: New cephalexin 500 mg capsule 500 mg PO TID Qty: 21 0RF No Action ropinirole 1 mg tablet 0.5 mg PO QAM tamsulosin 0.4 mg capsule 0.4 mg PO DAILY Patient Comments: GENERIC FOR FLOMAX... TAKE 1 CAPSULE BY MOUTH EVERY DAY Rytary 61.25-245 mg capsule, extended release 1 cap PO TID Rx Instructions: divide evenly over waking hours ropinirole 0.5 mg tablet 0.5 mg PO DAILY Patient Comments: TAKE 1 TABLET BY MOUTH EVERY MORNING AND 2 TABLETS BY MOUTH AT NIGHT prucalopride 1 mg tablet 1 mg PO DAILY Patient Comments: TAKE 1 TABLET BY MOUTH DAILY sennosides [senna] 8.6 mg tablet 17.2 mg PO HS PRN (Reason: constipation) Patient Comments: TAKE 2 TABLETS BY MOUTH DAILY AT BEDTIME NEEDED tizanidine 4 mg tablet 4 mg PO HS Patient Comments: TAKE 1 TO 2 TABLETS BY MOUTH AT NIGHT melatonin 10 mg capsule 10 mg PO HS Eliquis DVT-PE Treat 30D Start 5 mg (74 tabs) tablets,dose pack 5 mg PO BID Qty: 74 0RF Rx Instructions: Take 10mg twice daily until end of 08/21/24 for a total of 6 more days After, start taking 5mg twice daily Referrals: No Primary/Family,Physician [Primary Care Provider] - In 1 week Problem List Clinical Impression: Hypotension, UTI (urinary tract infection), Tracheal deviation Patient/Caregiver Discharge Instructions Education Materials: ED Low Blood Pressure, All Causes, ED Bladder Infection, Male (Adult) Additional Instructions: Your chest xray shows your windpipe is pushed to the left. Follow up with your doctor for ultrasound of the neck. Print Language: Indonesian Stand Alone Forms: [employer] Award Info., Patient Portal Info Letter
[2024-08-18 09:40] LABS: Lactate (Lactic Acid) 1.2 mMol/L (0.4-2.0)
[2024-08-18 09:42] LABS: Basophils % (Auto) 1 % (0-2.5); Eosinophils # (Auto) 0.4 Thou/mm3 (0.0-0.5); Eosinophils % (Auto) 6 % (0-10); Hematocrit 36.6 % (41.0-53.0); Hemoglobin 12.4 g/dL (13.5-16.0); Immature Granulocytes % (Auto) 0 % (0-0); Immature Granulocytes Auto 0.02 Thou/mm3 (0.00-0.00); Lymphocytes # (Auto) 0.9 Thou/mm3 (1.0-4.8); Lymphocytes % (Auto) 13 % (10-50); Mean Corpuscular HGB Conc 33.9 g/dl (31.0-37.0); Mean Corpuscular Volume 89 fL (80-100); Monocytes # (Auto) 0.7 Thou/mm3 (0.0-0.8); Monocytes % (Auto) 11 % (0-12); Neutrophils # (Auto) 4.4 Thou/mm3 (1.8-7.7); Neutrophils % (Auto) 70 % (37-80); Nucleated Red Blood Cell % 0 /100 WBC (0); Platelet Count 154 Thou/mm3 (140-440); RDW Standard Deviation 42.2 fL (35.1-43.9); Red Blood Count 4.13 Miln/mm3 (4.50-5.90); White Blood Count 6.4 Thou/mm3 (3.8-10.6)
[2024-08-18 09:56] LABS: INR 1.1 (0.9-1.3); Partial Thromboplastin Time 27.1 Seconds (22.0-36.0); Prothrombin Time 11.5 Seconds (9.0-12.2)
[2024-08-18 09:58] LABS: B-Type Natriuretic Peptide 29 pg/mL (0-100)
[2024-08-18 10:08] LABS: Alanine Aminotransferase 9 U/L (10-49); Albumin/Globulin Ratio 1.7 (1.2-2.2); Alkaline Phosphatase 59 U/L (46-116); Anion Gap 10 (7-16); Aspartate Amino Transferase 10 U/L (0-34); BUN/Creatinine Ratio 17 Ratio (12-20); Bilirubin,Total 0.4 mg/dL (0.3-1.2); Blood Urea Nitrogen 17 mg/dL (9-23); Calcium 9.3 mg/dL (8.3-10.6); Calcium (Corrected) 9.3 mg/dL (8.5-10.1); Carbon Dioxide 24.2 mMol/L (20.0-31.0); Chloride 105 mMol/L (98-107); Estimated Creatinine Clearance 70.3 mL/min (>60); Globulin 2.3 gm/dL (2.3-3.5); Glucose 132 mg/dL (74-106); Lipase 25 U/L (12-53); Magnesium 2.1 mg/dL (1.6-2.6); Osmolality,Calculated 281 (275-295); Potassium 4.3 mMol/L (3.4-5.1); Procalcitonin 0.08 ng/ml (0.0-0.49); Sodium 139 mMol/L (136-145); Total Protein 6.3 gm/dL (5.7-8.2); Troponin I < 0.020 ng/mL (0.0-0.045); eGFR > 60 See Note
[2024-08-18 10:28] VITALS: BP 116/63; PULSE 57; RESP 18; TEMP 36.7; O2SAT 95
[2024-08-18 12:14] LABS: Base Excess 1 (-3-3); HCO3 26 mEq/L (20-26); Inspired Oxygen, FIO2 21 %; O2 Saturation 96 % (91-98); PCO2 42 mmHg (32.0-48.0); PO2 79 mmHg (83-108)
[2024-08-18 12:16] LABS: Allen Test Performed/OK; Puncture Site Right Radial
[2024-08-18 12:19] LABS: Collection Type, Urine Clean Catch
[2024-08-18 12:27] LABS: Bilirubin,Urine Negative (Negative); Blood,Urine Trace (Negative); Calcium Oxalate Crystals,Urine 1+; Clarity,Urine Turbid (Clear/Hazy); Color,Urine Yellow (Lt Yel-Yel); Glucose, Urine Negative (Negative); Ketones,Urine Trace (Negative); Leukocyte Esterase,Urine Positive (Negative); Nitrite,Urine Negative (Negative); PH,Urine 5.5 (5.0-7.0); Protein,Urine 1+ (Neg - Trace); RBC,Urine 22 /hpf (0-3); Squamous Epithelial Cell,Urine 2 /hpf (0-5); WBC,Urine 23 /hpf (0-5)
[2024-08-18 12:32] LABS: Specific Gravity,Urine 1.025 (1.001-1.035)
[2024-08-18 12:35] VITALS: BP 116/66; PULSE 61; RESP 19; TEMP 36.7; O2SAT 95
[2024-08-18 12:58] LABS: Amphetamine/Methamp Scrn,U Negative (Negative); Barbiturate Screen,Urine Negative (Negative); Benzodiazepines Screen,Urine Negative (Negative); Benzoylecgonine Screen, Ur Negative (Negative); Fentanyl Screen,Urine Positive (Negative); Opiate Screen,Urine Negative (Negative); THC Screen,Urine Negative (Negative)
--- NOTE | 2024-08-18 13:54 | PC.NURSE ---
CALLED TO UPDATE PT IS TO BE DISCHARGED.
[2024-08-18 14:25] VITALS: BP 130/70; PULSE 73; RESP 18; TEMP 36.7; O2SAT 99
--- NOTE | 2024-08-18 15:52 | PC.CC ---
Patient is a 74 year old male who presents to the Emergency Department for hypotension. AUTHORIZATION MANAGER student introduced self, role reason for visit. Limits of confidentiality were discussed. Patient appears to be alert and oriented to self, location and situation. Patient was pleasant but confirmed his Bhumika Stevens as his surrogate decision maker and asked that I call her for any information needed. AUTHORIZATION MANAGER made contact with Bhumika Stevens ([phone]) who confirmed the patients demographics. stated patients primary care provider is Dr. Palmer and his pharmacy of preference is [facility]. Patient uses a walker to ambulate around his home and provides assistance in completing his ADL's. Upon discharge patient and are requesting placement in a SNF. TOBI Delatorre initiated SNF referral via [employer]. dental services director will follow up with any discharge needs.
--- NOTE | 2024-08-18 16:50 | PC.PT ---
Informed SW that patient was just recently here and had PT evaluation last 08/15/24 and PT recommended for patient to go to SNF.
--- NOTE | 2024-08-18 16:53 | PC.CC ---
Patient was accepted to [facility]. ASW made patient aware of being accepted and via telephone. ASW obtained an MANSI from transfer RN Lorena as family is unable to pay for transportation. ASW to arrange transportation.
--- NOTE | 2024-08-18 17:31 | PC.NURSE ---
CALLED PTS SO PT COULD SPEAK WITH HER HE REPEATEDLY ASKED FOR HER. UPDATED THAT [facility] ACCEPTED PT.
[2024-08-18 19:14] VITALS: BP 114/78; PULSE 80; RESP 18; TEMP 37.1; O2SAT 97
--- NOTE | 2024-08-18 20:32 | PC.NURSE ---
Called [place] spoke to Jennifer FORDE to give report.
== END 2024-08-18 20:33 | disposition skilled nursing facility (03) ==
PROVIDERS: Emergency Provider Emergency Medicine
DX: I95.9 Hypotension, unspecified (principal); N39.0 Urinary tract infection, site not specified; J39.8 Other specified diseases of upper respiratory tract; R07.9 Chest pain, unspecified; R41.82 Altered mental status, unspecified; R00.1 Bradycardia, unspecified; I10 Essential (primary) hypertension
CPT/HCPCS: 36415; 36600; 70450; 71045; 80053; 80307; 81001; 82803; 83605; 83690; 83735; 83880; 84145; 84484; 85025; 85610; 85730; 87040; 87086; 93005; 99284

== ENCOUNTER 2024-09-17 17:55 | Emergency (ER) | payer MEDICARE, BC, SELFPAY ==
[2024-09-17 18:02] VITALS: BP 124/71; PULSE 75; RESP 20; TEMP 37.2; O2SAT 95
[2024-09-17 18:14] VITALS: PULSE 71; RESP 20; O2SAT 96; BMI 34.2
--- NOTE | 2024-09-17 18:20 | PD.EDCHEST ---
ED Chest Pain RME/HPI General Chief Complaint: Chest Pain Stated Complaint: CHEST PAIN Time Seen by Provider: 09/17/24 18:24 Arrival date/time: 09/17/24 17:55 RME / HPI RME / HPI narrative: Dr. Wood?s Main ED Evaluation: 74yo male with a history of Parkinson's disease, HTN, HLD BIBA from [facility] presents to the ED for a chief complaint of intermittent chest pain x 0800. No radiation or migration. Patient did take 4 baby aspirin throughout the day today. Patient reports associated headache and feeling hot . EMS did administered 0.4 nitroglycerin sublingual and 1 inch nitropaste en route. Patient denies any fever, chills, N/V/D, cough, UTI symptoms or any other associated symptoms. Denies any tobacco, alcohol or illicit drug use. Related Data Home Medications ?Medication ?Instructions ?Recorded ?Confirmed ropinirole 1 mg tablet 0.5 mg PO QAM 11/03/22 08/12/24 tamsulosin 0.4 mg capsule 0.4 mg PO DAILY 11/03/22 08/12/24 carbidopa ER 61.25 mg-levodopa 245 1 cap PO TID 04/23/24 08/12/24 mg capsule,extended release (Rytary) prucalopride 1 mg tablet 1 mg PO DAILY 08/12/24 08/12/24 ropinirole 0.5 mg tablet 0.5 mg PO DAILY 08/12/24 08/12/24 melatonin 10 mg capsule 10 mg PO HS 08/13/24 08/13/24 sennosides 8.6 mg tablet (senna) 17.2 mg PO HS PRN constipation 08/13/24 08/13/24 tizanidine 4 mg tablet 4 mg PO HS 08/13/24 08/13/24 Previous Rx's ?Medication ?Instructions ?Recorded apixaban 5 mg (74 tabs) tablets in 5 mg PO BID #74 tabs 08/16/24 a dose pack (Eliquis DVT-PE Treat 30D Start) cephalexin 500 mg capsule 500 mg PO TID #21 caps 08/18/24 Allergies Allergy/AdvReac Type Severity Reaction Status Date / Time Sulfa (Sulfonamide Allergy Intermediate Swelling Verified 09/17/24 18:32 Antibiotics) of Lip/Tongue/Throat lorazepam (From Ativan) AdvReac Unknown Confusion Verified 09/17/24 18:32 Review of Systems Review of Systems Systems Reviewed: All systems reviewed, normal except as documented Past Medical History Past Medical History NEUROLOGIC: Positive Dementia and Parkinson's Disease; Negative Neurological Disorders or Seizures CARDIAC: Positive Cardiac Disorders, Angina, Hypercholesterolemia and Hypertension; Negative Congestive Heart Failure RESPIRATORY: Positive Sleep Apnea (does not use cpap anymore. O2 concentrator 2L at night.); Negative Chronic Obstructive Pulmonary Disease (COPD), Asthma or Pneumonia GASTROINTESTINAL: Positive Gastrointestinal Disorders, Gastroesophageal Reflux Disease and Obesity GENITOURINARY: Positive Genitourinary Disorders (hx of uti) and Benign Prostatic Hyperplasia; Negative Renal Disease MUSCULOSKELETAL: Positive Musculoskeletal Disorders, Arthritis (left knee) and Fractures ENDOCRINE: Positive Diabetes Mellitus Type 2; Negative Endocrine Disorders or Diabetes Mellitus Type 1 HEMATOLOGIC: Negative Blood Disorders or Sickle Cell Disease PSYCHO/SOCIAL: Positive Depression OTHER HISTORY: Positive Hospitalization and Anesthesia Reactions; Negative Autoimmune Disease, Falls, Blood Transfusions, Blood Transfusion Reaction or Cancer Family History FAMILY HISTORY: Positive Family Cardiac Disorders (mom chf); Negative Family Psychiatric Problems, Family Respiratory Disorders, Family Gastrointestinal Problems, Family Cancer, Family Surgery or Family Anesthesia Reaction Surgical History SURGICAL: Positive Tonsillectomy, Transurethral Resection and Joint Replacement Social History SMOKING STATUS: Never smoker SECOND HAND EXPOSURE: No ED Exam Narrative Physical exam: GEN. APPEARANCE: The patient is alert awake oriented X-3 in no distress, has a resting tremor to the RUE. VITALS: All vitals were reviewed and the pulse ox is 95% on room air which is normal according to my interpretation. HEENT: Normocephalic, atraumatic. Pupils are equal and reactive. Oral mucosa is moist. Patent Nares NECK: Supple, nontender, no thyromegaly, no meningismus, no JVD CHEST: Symmetrical, atraumatic, and with equal expansion , Nontender on palpation no deformity and no crepitus. CARDIOVASCULAR: Heart regular rhythm no murmur or gallop rub or extra beats. LUNGS: Clear to auscultation bilaterally with symmetrical chest rise. No laboring tachypnea or wheezing. No intercostal subcostal retraction. No rales and no rhonchi. ABDOMEN: Soft, flat, nontender to palpation, no guarding or rebound tenderness. There are no abnormal masses palpated. Active and normal bowel sounds. EXTREMITIES: Nontender. No edema. No cyanosis. Patient is able to move all 4 extremities well, with full ROM and good CSM. SKIN: Warm and dry, no jaundice or rashes noted. NEURO: Patient is WILLIAMSON x 4, Cranial nerves II through XII grossly intact. There is no focal neurologic deficits noted. GCS is 15, PNS and WIRE TAPER appear grossly intact. PSYCHIATRIC: Patient is in normal mood and affect. Course Course Course Narrative: CXR is ordered for determining the etiology of chest pain. Quality Measures none Orders Category Date Time Status CT Screening NOW Care 09/17/24 20:39 Active EKG (ED ONLY) *Do not use* NOW Care 09/17/24 18:[address] angio chest Stat Exams 09/17/24 20:39 Completed CXR1 [XR chest 1V] Stat Exams 09/17/24 18:26 Completed EKG (ED Only) Stat Exams 09/17/24 18:26 Draft BNP [B-Type Natriuretic Peptide] Stat Lab 09/17/24 18:37 Completed CBC Stat Lab 09/17/24 18:37 Completed CK [Creatine Kinase] Stat Lab 09/17/24 18:37 Completed CMP [Comprehensive Metabolic Panel] Stat Lab 09/17/24 18:37 Completed D-Dimer DAILY Lab 09/18/24 09:00 Ordered D-Dimer Stat Lab 09/17/24 18:37 Completed Drug Screen,Urine Stat Lab 09/17/24 19:28 Completed Troponin I Stat Lab 09/17/24 18:37 Completed Troponin I Stat Lab 09/17/24 20:56 Completed Urinalysis, C/S if Indicated Stat Lab 09/17/24 19:28 Completed Urine Culture Stat Lab 09/17/24 19:28 Received Ringers Lactated 500 ml [Lactated Ringers] 500 ml Med 09/17/24 18:31 Discontinued IV 500 mls/hr rOPINIRole HCL [Requip] Med 09/18/24 00:14 Discontinued 1 mg PO X1 ONE tiZANidine HCL [Zanaflex] Med 09/18/24 00:15 Discontinued 4 mg PO X1 ONE Reevaluation(s) Reevaluation #1: Patient feels significantly better. at bedside states the patient has a history of DVT and is currently on Eliquis. CTA chest ordered. Time: 20:38 Vital Signs Vital signs: Vital Signs Temperature 99 F 09/17/24 18:02 Pulse Rate 75 09/17/24 18:02 Respiratory Rate 20 09/17/24 18:02 Blood Pressure 124/71 09/17/24 18:02 Pulse Oximetry (%) 95 09/17/24 18:02 Oxygen Delivery Method Room Air 09/17/24 18:02 Chest Pain MDM Narrative MDM Narrative:: Scribe Attestation: 09/17/24 - Mar Chowdhury am scribing for and in the presence of Dr. Wood. Patient presents with chest pain. Vital signs and exam as stated. Concern for ACS arrhythmia electrolyte abnormality pulmonary embolus among others. Ordered labs EKG chest x-ray. Patient received medications for symptom relief prior to arrival. Labs without acute hematologic or metabolic abnormality. Troponin not elevated on 2 separate assessments. Dimer normal. Patient's concerned that patient has a history of a DVT in his lower extremity. Given findings for possible early pneumonia on chest x-ray and patient without fever cough ordered CT scan of the chest. Confirmed with patient's that patient has a known thoracic aortic aneurysm. He follows with vascular surgeon Dr. Nguyen. He last saw him a week ago. I did review outside records [facility] CT angio of the chest was performed in 2021, identified a 4.6 cm aneurysm at the time. This is unchanged. On reevaluation patient feels better, he is hemodynamically stable not in distress will discharge home with close return precautions follow-up with his primary care doctor. Patient data External records reviewed:: [facility] previous records (Per chart review, patient was seen here on 08/18/24 for hypotension.), EMS form and Other (specify) (Reviewed records from [facility], patient has a known 4.6 thoracic aortic aneurysm and 4 cm thyroid mass.) Clinical information provided by:: patient and EMS Social determinants that could affect healthcare access:: housing (SNF resident) Patient has the following chronic illnesses:: Parkinson's disease, HTN, HLD How is presenting disease/condition affected by chronic disease/condition?: uneffected by Evaluation data The following diagnostics were reviewed and interpreted by me:: lab results, radiology exam(s) and EKG tracing(s) Lab and/or radiology exams considered but not ordered:: none Interpretation Summary: CBC normal, D-Dimer negative, CMP normal, Initial and Repeat Troponins normal, BNP normal, UDS negative. EKG done at 1847, NSR, rate of 66, normal intervals, nonspecific ST-T changes, no acute ischemia, according to my interpretation. [facility] Report Signed Patient: VALENTIN HAMMOND Record#: [id number] Birthdate: 1950 Age/Sex: 74 / M Location: [facility]X Attending Dr: Ordering Physician: Alesia Wood MD Date of Service: 09/17/24 Procedure(s): XR chest 1V Accession Number(s): [id number] cc: Malcom Sunshine MD; NO PRIMARY/FAMILY,PHYSICIAN; Alesia Wood MD~ Examination: AP chest single view TECHNIQUE: AP portable sitting chest single view Date and time: September 17, 2024 1837 hours INDICATIONS: Chest pain today. FINDINGS: Mild enlargement cardiac contour Mild opacity left base obscuring detail left hemidiaphragm Mild vascular congestion Prominent osteopenia IMPRESSION: Early left base pneumonia Dictated By: Malcom Sunshine MD Signed By: <Electronically signed by Malcom Sunshine MD in OV> 09/17/24 192 --------- [facility] Report Signed Patient: VALENTIN HAMMOND [employer]. Record#: [id number] Birthdate: 1950 Age/Sex: 74 / M Location: [facility] Attending Dr: Ordering Physician: Alesia Wood MD Date of Service: 09/17/24 Procedure(s): CT angio chest Accession Number(s): [id number] cc: Malcom Sunshine MD; NO PRIMARY/FAMILY,PHYSICIAN; Alesia Wood MD~ Examination: CTA chest with intravenous contrast 2-D reconstructions 3-D reconstructions, vascular Date and time of exam: September 17, 2024 1106 hours INDICATIONS: Chest pain and shortness of breath today CTDI: vol (mGy) 14.4 DLP: (mGycm) 578 Technique: Multiple axial sections of the thorax have been obtained. 3 mm slice thickness, from below the hemidiaphragms to above the apices of the lungs. Mediastinal and lung density settings have been obtained. 2-D sagittal and coronal reconstructions. 3-D angiographic renderings, 3-D volume renderings, 3D post processing, vascular maximum intensity projections obtained. Contrast administered is 100 cc Isovue-370 Low dose protocols were performed. One or more of the following dose reduction techniques were used; automated exposure control, adjustment of the mA and/or KV according to patient size, use of iterative reconstruction technique. Findings: Right thyromegaly with 38 mm right thyroid nodule Aneurysmal dilatation ascending thoracic aorta AP dimension 4.6 cm no dissection No pulmonary artery filling defects 6 bilateral pulmonary nodules, the largest in the left lower lobe 10 mm No pneumonia or pulmonary edema Liver is mildly irregular in contour No gallstones Spleen not enlarged No pancreatic mass Kidneys partially visualized no hydronephrosis Moderate thoracic spondylosis IMPRESSION: Aneurysmal dilatation ascending thoracic aorta, 4.6 cm, no dissection Negative for pulmonary artery emboli 6 bilateral pulmonary nodules, with this study as baseline recommend 6 month follow-up CT chest without contrast Right thyromegaly with large right-sided thyroid nodule, consider dedicated thyroid sonography follow-up Dictated By: Malcom Sunshine MD Signed By: <Electronically signed by Malcom Sunshine MD in OV> 09/17/24 7491 Medications / Prescriptions Medications or Prescriptions considered but not ordered:: none Medication administrations:: Medication Administration History Discontinued Medications Lactated Ringer's (Lactated Ringers) 500 mls @ 500 mls/hr IV .Q1H ONE Stop: 09/17/24 19:30 Last Infusion: 09/17/24 21:56 Dose: Infused Documented By: Admin: 09/17/24 20:49 Dose: 500 mls/hr Documented By: BRIT Ropinirole HCl (Ropinirole Hcl 1 Mg Tablet) 1 mg PO X1 ONE Stop: 09/18/24 00:15 Tizanidine HCl (Tizanidine Hcl 2 Mg Tablet) 4 mg PO X1 ONE Stop: 09/18/24 00:16 see above Consultations Consultation(s) initiated? (list below): No Diagnosis Chest Pain Differential Diagnosis: other (ACS, PE, aortic dissection, pneumonia, metabolic disorder) Most likely diagnosis given after review of the tests above:: see clinical impression below Admission Indicated Admission indicated?: not indicated Admission Request Was there a request for admission?: No Disposition Plan Disposition Plan: Discharge Discharge Attestation Discharge Attestation: The patient and all family members were given an opportunity to ask questions and understood the discharge instructions. Discharge instructions specifically effects, indications for sooner follow up or return to the emergency department, and the expected course of current diagnosis. Patient condition: Stable Discharge Plan Plan Patient Disposition: Home w/HOME HEALTH Prescriptions/Referrals Prescriptions/Med Rec: No Action cephalexin 500 mg capsule 500 mg PO TID Qty: 21 0RF ropinirole 1 mg tablet 0.5 mg PO QAM tamsulosin 0.4 mg capsule 0.4 mg PO DAILY Patient Comments: GENERIC FOR FLOMAX... TAKE 1 CAPSULE BY MOUTH EVERY DAY Rytary 61.25-245 mg capsule, extended release 1 cap PO TID Rx Instructions: divide evenly over waking hours ropinirole 0.5 mg tablet 0.5 mg PO DAILY Patient Comments: TAKE 1 TABLET BY MOUTH EVERY MORNING AND 2 TABLETS BY MOUTH AT NIGHT prucalopride 1 mg tablet 1 mg PO DAILY Patient Comments: TAKE 1 TABLET BY MOUTH DAILY sennosides [senna] 8.6 mg tablet 17.2 mg PO HS PRN (Reason: constipation) Patient Comments: TAKE 2 TABLETS BY MOUTH DAILY AT BEDTIME NEEDED tizanidine 4 mg tablet 4 mg PO HS Patient Comments: TAKE 1 TO 2 TABLETS BY MOUTH AT NIGHT melatonin 10 mg capsule 10 mg PO HS Eliquis DVT-PE Treat 30D Start 5 mg (74 tabs) tablets,dose pack 5 mg PO BID Qty: 74 0RF Rx Instructions: Take 10mg twice daily until end of 08/21/24 for a total of 6 more days After, start taking 5mg twice daily Referrals: No Primary/Family,Physician [Primary Care Provider] - In 1 week Problem List Clinical Impression: Pulmonary nodule, left, Pulmonary nodule, right, Thoracic ascending aortic aneurysm, Lung nodule, multiple Patient/Caregiver Discharge Instructions Education Materials: ED Heart Disease Education Additional Instructions: Your CT scan today did not identify any evidence of pneumonia. Your cardiac enzyme was normal on [address] scan did identify a 4.6 cm thoracic ascending aortic aneurysm. Reviewing records from the outside hospital from [facility] from 2021, the aneurysm has not changed. I recommend that you follow-up with your primary care doctor as well as your vascular surgeon. You may benefit from a stress test for further evaluation. Print Language: Persian Stand Alone Forms: [employer] Award Info., Patient Portal Info Letter
--- NOTE | 2024-09-17 18:26 | XR_ITS ---
Examination: AP chest single view TECHNIQUE: AP portable sitting chest single view Date and time: September 17, 2024 1837 hours INDICATIONS: Chest pain today. FINDINGS: Mild enlargement cardiac contour Mild opacity left base obscuring detail left hemidiaphragm Mild vascular congestion Prominent osteopenia IMPRESSION: Early left base pneumonia
--- NOTE | 2024-09-17 18:26 | EKG_ITS ---
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: : 1950 Requested By: Alesia Schroeder Order Number: [id number] Reading MD: Alesia Schroeder Measurements Intervals [place] Rate: 66 P: 44 NH: 188 QRS: -27 QRSD: 111 T: 31 QT: 378 QTc: 398 Interpretive Statements SINUS RHYTHM BORDERLINE LEFT AXIS DEVIATION [QRS AXIS < -20] MODERATE INTRAVENTRICULAR CONDUCTION DELAY [110+ ms QRS DURATION] MODERATE VOLTAGE CRITERIA FOR LVH, CONSIDER NORMAL VARIANT [MEETS CRITERIA IN ONE OF: R(aVL), S(V1), R(V5), R(V5/V6)+S(V1)] NONSPECIFIC T-WAVE ABNORMALITY Compared to ECG 08/18/2024 09:25:56 Intraventricular conduction delay now present T-wave abnormality now present Sinus bradycardia no longer present Myocardial infarct finding no longer present /store/S0/[id number]/ecg/[id number].pdf
[2024-09-17 18:46] LABS: Basophils % (Auto) 1 % (0-2.5); Eosinophils # (Auto) 0.2 Thou/mm3 (0.0-0.5); Eosinophils % (Auto) 2 % (0-10); Hematocrit 36.9 % (41.0-53.0); Hemoglobin 12.5 g/dL (13.5-16.0); Immature Granulocytes % (Auto) 0 % (0-0); Immature Granulocytes Auto 0.02 Thou/mm3 (0.00-0.00); Lymphocytes # (Auto) 1.5 Thou/mm3 (1.0-4.8); Lymphocytes % (Auto) 22 % (10-50); Mean Corpuscular HGB Conc 33.9 g/dl (31.0-37.0); Mean Corpuscular Hemoglobin 30.2 pg (25.0-35.0); Mean Corpuscular Volume 89 fL (80-100); Monocytes # (Auto) 0.7 Thou/mm3 (0.0-0.8); Monocytes % (Auto) 10 % (0-12); Neutrophils # (Auto) 4.2 Thou/mm3 (1.8-7.7); Neutrophils % (Auto) 64 % (37-80); Nucleated Red Blood Cell % 0 /100 WBC (0); Platelet Count 142 Thou/mm3 (140-440); RDW Standard Deviation 42.5 fL (35.1-43.9); Red Blood Count 4.14 Miln/mm3 (4.50-5.90); White Blood Count 6.6 Thou/mm3 (3.8-10.6)
[2024-09-17 19:04] LABS: B-Type Natriuretic Peptide 46 pg/mL (0-100)
[2024-09-17 19:05] LABS: Alanine Aminotransferase < 7 U/L (10-49); Albumin, Serum 3.9 gm/dL (3.4-4.8); Albumin/Globulin Ratio 2.3 (1.2-2.2); Alkaline Phosphatase 62 U/L (46-116); Anion Gap 6 (7-16); Aspartate Amino Transferase < 10 U/L (0-34); BUN/Creatinine Ratio 21 Ratio (12-20); Bilirubin,Total 0.3 mg/dL (0.3-1.2); Blood Urea Nitrogen 17 mg/dL (9-23); Calcium 9.4 mg/dL (8.3-10.6); Calcium (Corrected) 9.5 mg/dL (8.5-10.1); Carbon Dioxide 28.2 mMol/L (20.0-31.0); Chloride 106 mMol/L (98-107); Creatine Kinase 64 U/L (34-171); Creatinine (Component) 0.8 mg/dL (0.6-1.3); Estimated Creatinine Clearance 88.6 mL/min (>60); Globulin 1.7 gm/dL (2.3-3.5); Glucose 97 mg/dL (74-106); Osmolality,Calculated 280 (275-295); Potassium 4.2 mMol/L (3.4-5.1); Sodium 140 mMol/L (136-145); Total Protein 5.6 gm/dL (5.7-8.2); Troponin I < 0.020 ng/mL (0.0-0.045); eGFR > 60 See Note
[2024-09-17 19:07] LABS: D-Dimer < 250 ng/mL (<600)
[2024-09-17 19:46] LABS: Collection Type, Urine Clean Catch
[2024-09-17 19:53] LABS: Bilirubin,Urine Negative (Negative); Blood,Urine Negative (Negative); Clarity,Urine Clear (Clear/Hazy); Color,Urine Lt Yellow (Lt Yel-Yel); Glucose, Urine Negative (Negative); Ketones,Urine Trace (Negative); Leukocyte Esterase,Urine 1+ (Negative); Nitrite,Urine Negative (Negative); PH,Urine 6.5 (5.0-7.0); Protein,Urine Trace (Neg - Trace); Urobilinogen,Urine 0.2 mg/dL (0.0-1.0)
[2024-09-17 19:55] LABS: Culture Indicated,Urine Yes
--- NOTE | 2024-09-17 19:58 | PC.NURSE ---
is wanting to wait to give fluids until she speaks with provider about results
[2024-09-17 20:02] LABS: Amphetamine/Methamp Scrn,U Negative (Negative); Barbiturate Screen,Urine Negative (Negative); Benzodiazepines Screen,Urine Negative (Negative); Benzoylecgonine Screen, Ur Negative (Negative); Fentanyl Screen,Urine Negative (Negative); Opiate Screen,Urine Negative (Negative); THC Screen,Urine Negative (Negative)
[2024-09-17 20:26] VITALS: BP 139/69; PULSE 69; RESP 20; O2SAT 96
--- NOTE | 2024-09-17 20:39 | XR_ITS ---
Examination: CTA chest with intravenous contrast 2-D reconstructions 3-D reconstructions, vascular Date and time of exam: September 17, 2024 1106 hours INDICATIONS: Chest pain and shortness of breath today CTDI: vol (mGy) 14.4 DLP: (mGycm) 578 Technique: Multiple axial sections of the thorax have been obtained. 3 mm slice thickness, from below the hemidiaphragms to above the apices of the lungs. Mediastinal and lung density settings have been obtained. 2-D sagittal and coronal reconstructions. 3-D angiographic renderings, 3-D volume renderings, 3D post processing, vascular maximum intensity projections obtained. Contrast administered is 100 cc Isovue-370 Low dose protocols were performed. One or more of the following dose reduction techniques were used; automated exposure control, adjustment of the mA and/or KV according to patient size, use of iterative reconstruction technique. Findings: Right thyromegaly with 38 mm right thyroid nodule Aneurysmal dilatation ascending thoracic aorta AP dimension 4.6 cm no dissection No pulmonary artery filling defects 6 bilateral pulmonary nodules, the largest in the left lower lobe 10 mm No pneumonia or pulmonary edema Liver is mildly irregular in contour No gallstones Spleen not enlarged No pancreatic mass Kidneys partially visualized no hydronephrosis Moderate thoracic spondylosis IMPRESSION: Aneurysmal dilatation ascending thoracic aorta, 4.6 cm, no dissection Negative for pulmonary artery emboli 6 bilateral pulmonary nodules, with this study as baseline recommend 6 month follow-up CT chest without contrast Right thyromegaly with large right-sided thyroid nodule, consider dedicated thyroid sonography follow-up
[2024-09-17] MEDS: RINGERS LACTATED 500 ML 500 ML IV (20:49)
[2024-09-17 21:35] LABS: Troponin I < 0.020 ng/mL (0.0-0.045)
[2024-09-17 22:00] VITALS: BP 149/73; PULSE 91; RESP 18; TEMP 36.9; O2SAT 95
[2024-09-18] VITALS: BP 156/92; PULSE 96; RESP 18; TEMP 36.9; O2SAT 94
--- NOTE | 2024-09-18 00:25 | PC.NURSE ---
called house sup for medication
[2024-09-18] MEDS: tiZANidine HCL 2 MG TABLET 4 MG PO (00:40)
[2024-09-18] MEDS: rOPINIRole HCL 1 MG TABLET PO (00:41)
== END 2024-09-18 00:53 | disposition home or self-care (01) ==
PROVIDERS: Emergency Provider Emergency Medicine
DX: R91.8 Other nonspecific abnormal finding of lung field (principal); E04.1 Nontoxic single thyroid nodule; I71.21 Aneurysm of the ascending aorta, without rupture; J18.9 Pneumonia, unspecified organism; R94.31 Abnormal electrocardiogram [ECG] [EKG]; I10 Essential (primary) hypertension; E78.5 Hyperlipidemia, unspecified; G20.A1 Parkinson's disease without dyskinesia, without mention of fluctuations
CPT/HCPCS: 36415; 71045; 71275; 80053; 80307; 81001; 82550; 83880; 84484; 85025; 85379; 87086; 93005; 96360; 99285; A4649; J7120; Q9967; A9270

== ENCOUNTER 2024-11-14 16:16 | Emergency (ER) | payer MEDICARE, BC, SELFPAY ==
[2024-11-14 17:07] VITALS: BP 136/84; PULSE 73; RESP 16; TEMP 36.7; O2SAT 96
[2024-11-14 17:13] VITALS: PULSE 90; BMI 25.8
--- NOTE | 2024-11-14 17:13 | XR_ITS ---
Examination: CT brain head without contrast. 2-D sagittal coronal reconstructions Date and time of exam:November 14, 2024, 1809 hours, comparison August 18, 2024 INDICATIONS: Worsening confusion and altered mental status today CTDI: vol (mGy):53 DLP: (mGycm):1091 Technique: Multiple CT axial sections of the brain have been obtained, 5 mm slice thickness. Contrast has not been administered. 2-D sagittal, coronal reconstructions have been obtained Low dose protocols were performed. One or more of the following dose reduction techniques were used; automated exposure control, adjustment of the mA and/or KV according to patient size, use of iterative reconstruction technique. Findings: No significant ventricular enlargement. Intra-axial or extra-axial hemorrhage density is not seen. No mass effect or midline shift Basal cisterns are not remarkable. Fourth ventricle is midline. Cranial vault intact. Impression: Negative for acute hemorrhage, mass effect or midline shift If symptoms persist, consider brain MRI follow-up, stroke protocol, as clinically warranted
[2024-11-14 17:42] LABS: Basophils # (Auto) 0.0 Thou/mm3 (0.0-0.2); Basophils % (Auto) 0 % (0-2.5); Eosinophils # (Auto) 0.1 Thou/mm3 (0.0-0.5); Eosinophils % (Auto) 1 % (0-10); Hematocrit 42.4 % (41.0-53.0); Hemoglobin 13.6 g/dL (13.5-16.0); Immature Granulocytes Auto 0.03 Thou/mm3 (0.00-0.00); Lymphocytes # (Auto) 1.4 Thou/mm3 (1.0-4.8); Lymphocytes % (Auto) 14 % (10-50); Mean Corpuscular HGB Conc 32.1 g/dl (31.0-37.0); Mean Corpuscular Hemoglobin 29.0 pg (25.0-35.0); Mean Corpuscular Volume 90 fL (80-100); Monocytes # (Auto) 1.3 Thou/mm3 (0.0-0.8); Monocytes % (Auto) 14 % (0-12); Neutrophils # (Auto) 6.8 Thou/mm3 (1.8-7.7); Neutrophils % (Auto) 71 % (37-80); Nucleated Red Blood Cell # 0.00 Thou/mm3 (0.00-0.00); Nucleated Red Blood Cell % 0 /100 WBC (0); Platelet Count 169 Thou/mm3 (140-440); RDW Standard Deviation 43.5 fL (35.1-43.9); Red Blood Count 4.69 Miln/mm3 (4.50-5.90); White Blood Count 9.5 Thou/mm3 (3.8-10.6)
[2024-11-14 18:33] LABS: Alanine Aminotransferase < 7 U/L (10-49); Albumin, Serum 4.3 gm/dL (3.4-4.8); Albumin/Globulin Ratio 1.7 (1.2-2.2); Alkaline Phosphatase 69 U/L (46-116); Anion Gap 9 (7-16); Aspartate Amino Transferase 14 U/L (0-34); BUN/Creatinine Ratio 18 Ratio (12-20); Bilirubin,Total 0.7 mg/dL (0.3-1.2); Blood Urea Nitrogen 14 mg/dL (9-23); Calcium 9.6 mg/dL (8.3-10.6); Calcium (Corrected) 9.6 mg/dL (8.5-10.1); Carbon Dioxide 27.1 mMol/L (20.0-31.0); Chloride 105 mMol/L (98-107); Creatinine (Component) 0.8 mg/dL (0.6-1.3); Estimated Creatinine Clearance 83.6 mL/min (>60); Globulin 2.5 gm/dL (2.3-3.5); Glucose 102 mg/dL (74-106); Osmolality,Calculated 281 (275-295); Potassium 3.9 mMol/L (3.4-5.1); Sodium 141 mMol/L (136-145); Total Protein 6.8 gm/dL (5.7-8.2); eGFR > 60 See Note
--- NOTE | 2024-11-14 18:36 | PD.EDAMS ---
Altered Mental Status RME/HPI General Chief Complaint: Altered Mental Status Stated Complaint: ALTERED Time Seen by Provider: 11/14/24 18:47 Arrival date/time: 11/14/24 16:16 Mode of arrival: EMS Limitations: no limitations RME / HPI RME / HPI narrative: Patient is a 74-year-old male with medical history notable for Parkinson's disease, complicated by dementia recurrent urinary tract infections at [facility] emergency department with concerns for acute confusion. Per EMS denies fevers nausea vomiting cough runny nose. Often times this confusion stems from urinary tract infections. Patient is allergic to sulfa and Ativan. No drugs alcohol smoking. Patient lives in a [facility]dc. Related Data Home Medications ?Medication ?Instructions ?Recorded ?Confirmed ropinirole 1 mg tablet 0.5 mg PO QAM 11/03/22 08/12/24 tamsulosin 0.4 mg capsule 0.4 mg PO DAILY 11/03/22 08/12/24 carbidopa ER 61.25 mg-levodopa 245 1 cap PO TID 04/23/24 08/12/24 mg capsule,extended release (Rytary) prucalopride 1 mg tablet 1 mg PO DAILY 08/12/24 08/12/24 ropinirole 0.5 mg tablet 0.5 mg PO DAILY 08/12/24 08/12/24 melatonin 10 mg capsule 10 mg PO HS 08/13/24 08/13/24 sennosides 8.6 mg tablet (senna) 17.2 mg PO HS PRN constipation 08/13/24 08/13/24 tizanidine 4 mg tablet 4 mg PO HS 08/13/24 08/13/24 Previous Rx's ?Medication ?Instructions ?Recorded apixaban 5 mg (74 tabs) tablets in 5 mg PO BID #74 tabs 08/16/24 a dose pack (Eliquis DVT-PE Treat 30D Start) cephalexin 500 mg capsule 500 mg PO TID #21 caps 08/18/24 Allergies Allergy/AdvReac Type Severity Reaction Status Date / Time Sulfa (Sulfonamide Allergy Intermediate Swelling Verified 09/17/24 18:32 Antibiotics) of Lip/Tongue/Throat lorazepam (From Ativan) AdvReac Unknown Confusion Verified 09/17/24 18:32 ED Exam General Limitations: Present no limitations General appearance: Present alert and in no apparent distress Head Head exam: Present atraumatic and normocephalic Eye Eye exam: Present normal appearance ENT ENT exam: Present normal exam and normal oropharynx Neck Neck exam: Present normal inspection and full ROM Chest Chest inspection: Present symmetric chest wall rise Respiratory Respiratory exam: Absent respiratory distress Cardiovascular Cardiovascular exam: Present regular rate Abdominal Exam Abdominal exam: Present soft; Absent distention Extremities Exam Extremities exam: Present normal inspection Neurological Exam Neurological exam: Present alert and other (Oriented to person and place. No gross focal neurodeficits. ) Course Quality Measures none Orders Category Date Time Status CT head/brain wo con Stat Exams 11/14/24 17:13 Completed Ammonia Stat Lab 11/14/24 19:19 Completed CBC Stat Lab 11/14/24 17:26 Completed CMP [Comprehensive Metabolic Panel] Stat Lab 11/14/24 17:26 Completed TSH [Thyroid Stimulating Hormone] Stat Lab 11/14/24 19:19 Completed UA, C/S IF [Urinalysis, C/S if Indicated] Stat Lab 11/14/24 20:27 Completed Urine Culture Stat Lab 11/14/24 20:27 Completed cefTRIAXone [Rocephin] 1,000 mg Med 11/14/24 21:34 Discontinued Lidocaine 1% 20 ml [Xylocaine 1% 20 ML] 2.1 ml IM X1 Vital Signs Vital signs: Vital Signs Temperature 98.1 F 11/14/24 17:07 Pulse Rate 73 11/14/24 17:07 Respiratory Rate 16 11/14/24 17:07 Blood Pressure 136/84 H 11/14/24 17:07 Pulse Oximetry (%) 96 11/14/24 17:07 Oxygen Delivery Method Room Air 11/14/24 17:07 Altered Mental Status MDM Narrative MDM Narrative:: Patient is a 74-year-old male is in the emerged from with concerns for acute confusion. Vital signs and exam are listed. Symptoms for metabolic derangement, urinary tract infection, intracranial hemorrhage. Ordered labs, CT brain. Labs without acute hematologic or metabolic abnormality. Patient is pending urinalysis. Signed out to oncoming provider pending urinalysis. Patient data External records reviewed:: [facility] previous records Clinical information provided by:: patient and EMS Social determinants that could affect healthcare access:: mental health Patient has the following chronic illnesses:: See MDM How is presenting disease/condition affected by chronic disease/condition?: exacerbated by Evaluation data The following diagnostics were reviewed and interpreted by me:: lab results Lab and/or radiology exams considered but not ordered:: None Interpretation Summary: See MDM Medications / Prescriptions Medications or Prescriptions considered but not ordered:: None Medication administrations:: Medication Administration History Discontinued Medications Ceftriaxone Sodium 1,000 mg/ (Lidocaine HCl 2.1 ml) 0 mg IM X1 ONE Stop: 11/14/24 21:35 Last Admin: 11/14/24 22:09 Dose: 1,000 mg Documented By: SRUTHI See above Consultations Consultation(s) initiated? (list below): No Diagnosis Differential diagnosis altered mental status: altered mental status Most likely diagnosis given after review of the tests above:: pending work up Admission Indicated Admission indicated?: not indicated Admission Request Was there a request for admission?: No Disposition Plan Disposition Plan: other (specify) (Signed out) Discharge Plan Plan Patient Disposition: HOME (Self Care) Discharge Disposition comment: stable Prescriptions/Referrals Prescriptions/Med Rec: No Action cephalexin 500 mg capsule 500 mg PO TID Qty: 21 0RF ropinirole 1 mg tablet 0.5 mg PO QAM tamsulosin 0.4 mg capsule 0.4 mg PO DAILY Patient Comments: GENERIC FOR FLOMAX... TAKE 1 CAPSULE BY MOUTH EVERY DAY Rytary 61.25-245 mg capsule, extended release 1 cap PO TID Rx Instructions: divide evenly over waking hours ropinirole 0.5 mg tablet 0.5 mg PO DAILY Patient Comments: TAKE 1 TABLET BY MOUTH EVERY MORNING AND 2 TABLETS BY MOUTH AT NIGHT prucalopride 1 mg tablet 1 mg PO DAILY Patient Comments: TAKE 1 TABLET BY MOUTH DAILY sennosides [senna] 8.6 mg tablet 17.2 mg PO HS PRN (Reason: constipation) Patient Comments: TAKE 2 TABLETS BY MOUTH DAILY AT BEDTIME NEEDED tizanidine 4 mg tablet 4 mg PO HS Patient Comments: TAKE 1 TO 2 TABLETS BY MOUTH AT NIGHT melatonin 10 mg capsule 10 mg PO HS Eliquis DVT-PE Treat 30D Start 5 mg (74 tabs) tablets,dose pack 5 mg PO BID Qty: 74 0RF Rx Instructions: Take 10mg twice daily until end of 08/21/24 for a total of 6 more days After, start taking 5mg twice daily Referrals: No Primary/Family,Physician [Primary Care Provider] - In 1 week Problem List Clinical Impression: Acute confusion, Urinary tract infection Patient/Caregiver Discharge Instructions Education Materials: ED Confusion, ED Bladder Infection, Male (Adult) Additional Instructions: Please follow-up with your primary care provider in the next 24 to 48 hours Antibiotics were sent to your pharmacy please pick them up and take them as indicated Urinalysis showed a urinary tract infection. Blood work and CT scan were all within normal limits For any evidence of worsening signs or symptoms return to the emergency room immediately Print Language: Setswana Stand Alone Forms: Roxy Award Info., Patient Portal Info Letter PA/[employer] Supervising Physician PA/ARCHIE Supervising Physician: Dr. Rouse
[2024-11-14 19:51] LABS: Ammonia 31 uMol/L (11-32)
[2024-11-14 19:56] VITALS: BP 146/81; PULSE 78; RESP 20; O2SAT 93
[2024-11-14 20:11] LABS: Thyroid Stimulating Hormone 2.03 uIU/mL (0.55-4.78)
[2024-11-14 20:35] LABS: Collection Type, Urine Clean Catch
[2024-11-14 20:45] LABS: Bilirubin,Urine Negative (Negative); Blood,Urine 3+ (Negative); Clarity,Urine Turbid (Clear/Hazy); Glucose, Urine Negative (Negative); Ketones,Urine 1+ (Negative); Leukocyte Esterase,Urine Positive (Negative); Nitrite,Urine Negative (Negative); PH,Urine 6.0 (5.0-7.0); Protein,Urine 1+ (Neg - Trace); RBC,Urine 1635 /hpf (0-3); Specific Gravity,Urine 1.028 (1.001-1.035); Squamous Epithelial Cell,Urine < 1 /hpf (0-5); Urobilinogen,Urine Negative mg/dL (0.0-1.0); WBC,Urine 44 /hpf (0-5)
[2024-11-14 20:48] LABS: Color,Urine Lt-Orange (Lt Yel-Yel); Culture Indicated,Urine Yes
--- NOTE | 2024-11-14 21:24 | PD.EDAMS ---
Altered Mental Status RME/HPI General Chief Complaint: Altered Mental Status Stated Complaint: ALTERED Time Seen by Provider: 11/14/24 18:47 Arrival date/time: 11/14/24 16:16 74-year-old male with a history of Parkinson's disease, dementia presents to the emergency room with a chief complaint of acute confusion. Mode of arrival: ambulatory Limitations: no limitations RME / HPI RME / HPI narrative: Patient is a 74-year-old male with medical history notable for Parkinson's disease, complicated by dementia recurrent urinary tract infections at [facility] emergency department with concerns for acute confusion. Per EMS denies fevers nausea vomiting cough runny nose. Often times this confusion stems from urinary tract infections. Patient is allergic to sulfa and Ativan. No drugs alcohol smoking. Patient lives in a [facility]. Related Data Home Medications ?Medication ?Instructions ?Recorded ?Confirmed ropinirole 1 mg tablet 0.5 mg PO QAM 11/03/22 08/12/24 tamsulosin 0.4 mg capsule 0.4 mg PO DAILY 11/03/22 08/12/24 carbidopa ER 61.25 mg-levodopa 245 1 cap PO TID 04/23/24 08/12/24 mg capsule,extended release (Rytary) prucalopride 1 mg tablet 1 mg PO DAILY 08/12/24 08/12/24 ropinirole 0.5 mg tablet 0.5 mg PO DAILY 08/12/24 08/12/24 melatonin 10 mg capsule 10 mg PO HS 08/13/24 08/13/24 sennosides 8.6 mg tablet (senna) 17.2 mg PO HS PRN constipation 08/13/24 08/13/24 tizanidine 4 mg tablet 4 mg PO HS 08/13/24 08/13/24 Previous Rx's ?Medication ?Instructions ?Recorded apixaban 5 mg (74 tabs) tablets in 5 mg PO BID #74 tabs 08/16/24 a dose pack (Eliquis DVT-PE Treat 30D Start) cephalexin 500 mg capsule 500 mg PO TID #21 caps 08/18/24 levofloxacin 750 mg tablet 750 mg PO QDAY 5 days #5 tabs 11/14/24 Allergies Allergy/AdvReac Type Severity Reaction Status Date / Time Sulfa (Sulfonamide Allergy Intermediate Swelling Verified 09/17/24 18:32 Antibiotics) of Lip/Tongue/Throat lorazepam (From Ativan) AdvReac Unknown Confusion Verified 09/17/24 18:32 Review of Systems Review of Systems Systems Reviewed: All systems reviewed, normal except as documented Constitutional Constitutional: Reports system reviewed and no additional complaints, except as documented, Denies fatigue, Denies fever(s), Denies headache(s) and Denies weakness Eyes Eyes: Reports system reviewed and no additional complaints, except as documented, Denies blurry vision and Denies change in vision ENT Ears, Nose, Mouth, and Throat: Reports system reviewed and no additional complaints, except as documented, Denies otalgia, Denies headache(s), Denies nasal congestion, Denies throat swelling and Denies vertigo Cardiovascular Cardiovascular: Reports system reviewed and no additional complaints, except as documented, Denies chest pain, Denies dyspnea and Denies dyspnea on exertion Respiratory Respiratory: Reports system reviewed and no additional complaints, except as documented, Denies chest congestion, Denies cough, Denies dyspnea, Denies dyspnea on exertion and Denies wheezing Gastrointestinal Gastrointestinal: Reports system reviewed and no additional complaints, except as documented, Denies abdominal pain, Denies cramping, Denies nausea and Denies vomiting Genitourinary Genitourinary: Reports system reviewed and no additional complaints, except as documented, Denies dysuria and Denies hematuria Musculoskeletal Musculoskeletal: Reports system reviewed and no additional complaints, except as documented and Denies back pain Integumentary/Breasts Skin/Breast: Reports system reviewed and no additional complaints, except as documented and Denies wounds Neurologic Neurologic: Reports system reviewed and no additional complaints, except as documented, Denies confusion, Denies headache(s), Denies lack of coordination, Denies vertigo and Denies weakness Psychiatric Psychiatric: Reports system reviewed and no additional complaints, except as documented, Denies anxiety, Denies confusion, Denies depression, Denies paranoia, Denies suicidal ideation and Denies tactile hallucinations Endocrine Endocrine: Reports system reviewed and no additional complaints, except as documented and Denies fatigue Hematologic/Lymphatic Hematologic/Lymphatic: Reports system reviewed and no additional complaints, except as documented and Denies lymphadenopathy Allergic/Immunologic Allergic/Immunologic: Reports system reviewed and no additional complaints, except as documented, Denies throat swelling, Denies urticaria and Denies wheezing Past Medical History Past Medical History NEUROLOGIC: Positive Dementia and Parkinson's Disease; Negative Neurological Disorders or Seizures CARDIAC: Positive Angina, Hypercholesterolemia and Hypertension; Negative Cardiac Disorders or Congestive Heart Failure RESPIRATORY: Positive Sleep Apnea; Negative Chronic Obstructive Pulmonary Disease (COPD), Asthma or Pneumonia GASTROINTESTINAL: Positive Gastrointestinal Disorders, Gastrointestinal Bleed, Hemorrhoids, Gastroesophageal Reflux Disease and Obesity GENITOURINARY: Positive Genitourinary Disorders, Kidney Stones and Benign Prostatic Hyperplasia; Negative Renal Disease MUSCULOSKELETAL: Positive Musculoskeletal Disorders, Arthritis (left knee) and Fractures ENDOCRINE: 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); Negative Diabetes Mellitus Type 1 or Diabetes Mellitus Type 2 HEMATOLOGIC: Negative Blood Disorders or Sickle Cell Disease PSYCHO/SOCIAL: Positive Depression and Anxiety OTHER HISTORY: Positive Hospitalization and Anesthesia Reactions; Negative Autoimmune Disease, Falls, Blood Transfusions, Blood Transfusion Reaction or Cancer Family History FAMILY HISTORY: Positive Family Cardiac Disorders; Negative Family Psychiatric Problems, Family Respiratory Disorders, Family Gastrointestinal Problems, Family Cancer, Family Surgery or Family Anesthesia Reaction Surgical History SURGICAL: Positive Tonsillectomy, Transurethral Resection and Joint Replacement Social History SMOKING STATUS: Never smoker SECOND HAND EXPOSURE: No ED Exam General Limitations: Present no limitations; Absent altered mental status or physical limitation General appearance: Present alert and in no apparent distress; Absent appears intoxicated, anxious, lethargic, obtunded, in distress, obese or cachectic Head Head exam: Present atraumatic, normocephalic and normal inspection Eye Eye exam: Present normal appearance, PERRL and EOMI ENT ENT exam: Present normal exam, normal oropharynx and mucous membranes moist Neck Neck exam: Present normal inspection, full ROM and trachea midline Chest Chest inspection: Present normal inspection and symmetric chest wall rise Respiratory Respiratory exam: Present normal lung sounds bilaterally; Absent respiratory distress, wheezes, stridor, accessory muscle use or prolonged expiratory phase Cardiovascular Cardiovascular exam: Present regular rate, normal rhythm and normal heart sounds; Absent tachycardia Abdominal Exam Abdominal exam: Present soft and normal bowel sounds; Absent tenderness Extremities Exam Extremities exam: Present normal inspection and full ROM Back Exam Back exam: Present normal inspection and full ROM Neurological Exam Neurological exam: Present alert, oriented X3 and CN II-XII intact Psychiatric Psychiatric exam: Present normal affect and normal mood Skin Skin exam: Present warm, dry, intact and normal color Course Quality Measures none Orders Category Date Time Status CT head/brain wo con Stat Exams 11/14/24 17:13 Completed Ammonia Stat Lab 11/14/24 19:19 Completed CBC Stat Lab 11/14/24 17:26 Completed CMP [Comprehensive Metabolic Panel] Stat Lab 11/14/24 17:26 Completed TSH [Thyroid Stimulating Hormone] Stat Lab 11/14/24 19:19 Completed UA, C/S IF [Urinalysis, C/S if Indicated] Stat Lab 11/14/24 20:27 Completed Urine Culture Stat Lab 11/14/24 20:27 Completed cefTRIAXone [Rocephin] 1,000 mg Med 11/14/24 21:34 Discontinued Lidocaine 1% 20 ml [Xylocaine 1% 20 ML] 2.1 ml IM X1 Vital Signs Vital signs: Vital Signs Temperature 98.1 F 11/14/24 17:07 Pulse Rate 73 11/14/24 17:07 Respiratory Rate 16 11/14/24 17:07 Blood Pressure 136/84 H 11/14/24 17:07 Pulse Oximetry (%) 96 11/14/24 17:07 Oxygen Delivery Method Room Air 11/14/24 17:07 Altered Mental Status MDM Narrative MDM Narrative:: From [facility] [id number] male with a history of Parkinson's disease, dementia presents to the emergency room with a chief complaint of acute confusion. Patient is hemodynamically stable and in no apparent distress Physical examination shows a GCS of 15. The patient is alert to location he is alert to his name And his date of . Patient is with at bedside and states that the patient is not at his baseline and that he is a little confused. The patient does have a history of dementia but was able to answer all my questions appropriately. CBC CMP were within normal limits. CT of the head and brain was within normal limits. Patient urinalysis showed a urinary tract infection. Patient was given antibiotics and discharged with oral antibiotics back to his facility. Patient was discharged and educated to follow-up with primary care provider in the next 24 to 48 hours and return to the emergency room for any evidence of worsening signs or symptoms Patient data External records reviewed:: [facility] previous records Clinical information provided by:: patient Social determinants that could affect healthcare access:: none Patient has the following chronic illnesses:: Parkinson's disease, dementia How is presenting disease/condition affected by chronic disease/condition?: caused by Evaluation data The following diagnostics were reviewed and interpreted by me:: lab results and radiology exam(s) Lab and/or radiology exams considered but not ordered:: Labs and radiology exams considered and ordered Interpretation Summary: CT head-indings: No significant ventricular enlargement. Intra-axial or extra-axial hemorrhage density is not seen. No mass effect or midline shift Basal cisterns are not remarkable. Fourth ventricle is midline. Cranial vault intact. Impression: Negative for acute hemorrhage, mass effect or midline shift If symptoms persist, consider brain MRI follow-up, stroke protocol, as clinically warranted Medications / Prescriptions Medications or Prescriptions considered but not ordered:: Medication given Medication administrations:: Medication Administration History Discontinued Medications Ceftriaxone Sodium 1,000 mg/ (Lidocaine HCl 2.1 ml) 0 mg IM X1 ONE Stop: 11/14/24 21:35 Last Admin: 11/14/24 22:09 Dose: 1,000 mg Documented By: SRUTHI Medication given Consultations Consultation(s) initiated? (list below): No Diagnosis Differential diagnosis altered mental status: altered mental status, delirium, dementia, hypoglycemia, hyponatremia, subarachnoid hemorrhage and other (Urinary tract infection) Most likely diagnosis given after review of the tests above:: Urinary tract infection Admission Indicated Admission indicated?: not indicated Admission Request Was there a request for admission?: No Disposition Plan Disposition Plan: Discharge Discharge Attestation Discharge Attestation: The patient and all family members were given an opportunity to ask questions and understood the discharge instructions. Discharge instructions specifically effects, indications for sooner follow up or return to the emergency department, and the expected course of current diagnosis. Patient condition: Stable Discharge Plan Plan Patient Disposition: HOME (Self Care) Discharge Disposition comment: stable Prescriptions/Referrals Prescriptions/Med Rec: New levofloxacin 750 mg tablet 750 mg PO QDAY 5 Days Qty: 5 0RF No Action cephalexin 500 mg capsule 500 mg PO TID Qty: 21 0RF ropinirole 1 mg tablet 0.5 mg PO QAM tamsulosin 0.4 mg capsule 0.4 mg PO DAILY Patient Comments: GENERIC FOR FLOMAX... TAKE 1 CAPSULE BY MOUTH EVERY DAY Rytary 61.25-245 mg capsule, extended release 1 cap PO TID Rx Instructions: divide evenly over waking hours ropinirole 0.5 mg tablet 0.5 mg PO DAILY Patient Comments: TAKE 1 TABLET BY MOUTH EVERY MORNING AND 2 TABLETS BY MOUTH AT NIGHT prucalopride 1 mg tablet 1 mg PO DAILY Patient Comments: TAKE 1 TABLET BY MOUTH DAILY sennosides [senna] 8.6 mg tablet 17.2 mg PO HS PRN (Reason: constipation) Patient Comments: TAKE 2 TABLETS BY MOUTH DAILY AT BEDTIME NEEDED tizanidine 4 mg tablet 4 mg PO HS Patient Comments: TAKE 1 TO 2 TABLETS BY MOUTH AT NIGHT melatonin 10 mg capsule 10 mg PO HS Eliquis DVT-PE Treat 30D Start 5 mg (74 tabs) tablets,dose pack 5 mg PO BID Qty: 74 0RF Rx Instructions: Take 10mg twice daily until end of 08/21/24 for a total of 6 more days After, start taking 5mg twice daily Referrals: No Primary/Family,Physician [Primary Care Provider] - In 1 week Problem List Clinical Impression: Acute confusion, Urinary tract infection Patient/Caregiver Discharge Instructions Education Materials: ED Confusion, ED Bladder Infection, Male (Adult) Additional Instructions: Please follow-up with your primary care provider in the next 24 to 48 hours Antibiotics were sent to your pharmacy please pick them up and take them as indicated Urinalysis showed a urinary tract infection. Blood work and CT scan were all within normal limits For any evidence of worsening signs or symptoms return to the emergency room immediately Print Language: Cuban Stand Alone Forms: Roxy Award Info., Patient Portal Info Letter PA/[employer]ORE [employer]CH[employer] Supervising Physician PA/[employer] Supervising Physician: Dr. Rouse
[2024-11-14] MEDS: cefTRIAXone 1,000 MG, LIDOCAINE 1% 20 ML 2.1 ML IM (22:09)
[2024-11-14 22:18] VITALS: BP 145/83; PULSE 74; RESP 20; TEMP 37.2; O2SAT 97
[2024-11-14 23:23] VITALS: BP 133/78; PULSE 88; RESP 17; TEMP 36.4; O2SAT 98
[2024-11-14 23:24] VITALS: TEMP 36.6
== END 2024-11-14 23:26 | disposition home or self-care (01) ==
PROVIDERS: Emergency Provider Emergency Medicine
DX: N39.0 Urinary tract infection, site not specified (principal); G20.A1 Parkinson's disease without dyskinesia, without mention of fluctuations; F02.80 Dementia in other diseases classified elsewhere, unspecified severity, without behavioral disturbance, psychotic disturbance, mood disturbance, and anxiety
CPT/HCPCS: 36415; 70450; 80053; 81001; 82140; 84443; 85025; 87086; 96372; 99283; J0696; J3490

== ENCOUNTER 2025-03-16 20:32 | Emergency (ER) | payer MEDICARE, BC, SELFPAY ==
[2025-03-16 20:36] VITALS: PULSE 70; RESP 16; O2SAT 99; BMI 35.8
--- NOTE | 2025-03-16 20:38 | XR_ITS ---
Examination: CT brain head without contrast. 2-D sagittal coronal reconstructions Date and time of exam: March 16, 2025, 2054 hours, comparison November 14, 2024 INDICATIONS: Patient fell today with injury to the head, head pain CTDI: vol (mGy): 54 DLP: (mGycm): 1054 Technique: Multiple CT axial sections of the brain have been obtained, 5 mm slice thickness. Contrast has not been administered. 2-D sagittal, coronal reconstructions have been obtained Low dose protocols were performed. One or more of the following dose reduction techniques were used; automated exposure control, adjustment of the mA and/or KV according to patient size, use of iterative reconstruction technique. Findings: No significant ventricular enlargement. Intra-axial or extra-axial hemorrhage density is not seen. No mass effect or midline shift Basal cisterns are not remarkable. Fourth ventricle is midline. Cranial vault intact. Impression: Negative for acute hemorrhage, mass effect or midline shift
--- NOTE | 2025-03-16 20:38 | XR_ITS ---
Examination: Left hip AP, lateral, AP pelvis 3 views Technique: Hip AP lateral, AP pelvis, 3 views Exam date and time: March 16, 2025, 2100 hours INDICATIONS: Patient fell today with injury to left hip, left hip pain. FINDINGS: Acute impacted left subcapital hip fracture Right hip bones of the pelvis intact IMPRESSION: Acute impacted left subcapital hip fracture.
--- NOTE | 2025-03-16 20:38 | XR_ITS ---
Examination: CT cervical spine without contrast 2-D sagittal reconstructions 2-D coronal reconstructions 3-D reconstructions. Exam date and time: March 16, 2025, 2024 hours INDICATIONS: Patient fell today with injury to the neck, neck pain CTDI:vol (mGy) 14.2 DLP: (mGycm) 282 Technique: Multiple 2 mm axial sections of the cervical spine have been obtained. The coronal and sagittal reconstructions have been obtained. 3-D reconstructions have been obtained. Low dose protocols were performed. One or more of the following dose reduction techniques were used; automated exposure control, adjustment of the mA and/or KV according to patient size, use of iterative reconstruction technique. Findings: Axial sections demonstrate intact base of the skull. C1 exhibit satisfactory relationship to the odontoid. No acute cervical vertebral body fracture seen. Alignment posterior spinous processes satisfactory. Impression: No acute cervical fracture.
--- NOTE | 2025-03-16 20:40 | PD.EDFALL ---
ED Fall Injury RME/HPI General Chief Complaint: Extremity Injury, Lower Stated Complaint: FALL Time Seen by Provider: 03/16/25 20:33 Arrival date/time: 03/16/25 20:32 75-year-old male patient with significant history of Parkinson, BPH DVT was brought in by EMS for evaluation regarding ground-level fall. Patient was walking with his walker, his feet got caught on something and patient fall landing on his left side. Patient complained of headache on the left, left hip pain, and neck pain. Described as dull ache, severity mild. Denies any LOC no nausea no vomiting no chest pain no abdominal pain no low back pain. Patient told me that he is not taking any blood thinner anymore. Related Data Home Medications ?Medication ?Instructions ?Recorded ?Confirmed ropinirole 1 mg tablet 0.5 mg PO QAM 11/03/22 08/12/24 tamsulosin 0.4 mg capsule 0.4 mg PO DAILY 11/03/22 08/12/24 carbidopa ER 61.25 mg-levodopa 245 1 cap PO TID 04/23/24 08/12/24 mg capsule,extended release (Rytary) prucalopride 1 mg tablet 1 mg PO DAILY 08/12/24 08/12/24 ropinirole 0.5 mg tablet 0.5 mg PO DAILY 08/12/24 08/12/24 melatonin 10 mg capsule 10 mg PO HS 08/13/24 08/13/24 sennosides 8.6 mg tablet (senna) 17.2 mg PO HS PRN constipation 08/13/24 08/13/24 tizanidine 4 mg tablet 4 mg PO HS 08/13/24 08/13/24 Previous Rx's ?Medication ?Instructions ?Recorded apixaban 5 mg (74 tabs) tablets in 5 mg PO BID #74 tabs 08/16/24 a dose pack (Eliquis DVT-PE Treat 30D Start) cephalexin 500 mg capsule 500 mg PO TID #21 caps 08/18/24 Allergies Allergy/AdvReac Type Severity Reaction Status Date / Time Sulfa (Sulfonamide Allergy Intermediate Swelling Verified 03/16/25 20:36 Antibiotics) of Lip/Tongue/Throat lorazepam (From Ativan) AdvReac Unknown Confusion Verified 03/16/25 20:36 Review of Systems Review of Systems Narrative Review of Systems: Review of system reviewed and within normal limits except mentioned in HPI ED Exam Narrative Physical exam: VITAL SIGNS: Reviewed. GENERAL APPEARANCE: Alert and interactive, follows commands, no acute distress, HEAD AND FACE: Non-traumatic. ENT: PERRL, pink conjunctivitis, eyelid no trauma, Mucous membrane moist. NECK: Supple, nontender, no nuchal rigidity. CHEST: No tenderness, no crepitus, no paradoxical movement, no retractions. LUNGS: Clear, well ventilated, symmetric, no rales, no wheezing, no ronchi, no stridor, good breath sounds bilaterally. HEART: Regular rate, regular rhythm, no murmur, no gallops. ABDOMEN: Soft, positive bowel sounds, nondistended, no guarding, nontender, no rebound, no masses, RECTAL: Deferred. GENITAL: Deferred. NEUROLOGICAL: Gross motor function intact sensory function intact, Appropriate for age. MUSCULOSKELETAL: low back nontender, full range of motion. EXTREMITIES: Left hip tenderness no deformity no shortening, full range of motion. SKIN: Color pink, dry, no rash, no lacerations, no abrasions, no contusions. LYMPHATICS: Deferred. Course Quality Measures none Orders Category Date Time Status IV [Insert IV] NOW Care 03/16/25 22:[address] cervical spine wo con Stat Exams 03/16/25 20:[address] head/brain wo con Stat Exams 03/16/25 20:38 Completed XR hip LT w pelvis 2-3V Stat Exams 03/16/25 20:38 Completed HYDROcodone*/APAP 5/325 [[place] 5/325] Med 03/16/25 20:39 Discontinued 1 tab PO X1 ONE Vital Signs Vital signs: Vital Signs Temperature 98.2 F 03/16/25 20:47 Pulse Rate 84 03/16/25 20:47 Respiratory Rate 20 03/16/25 20:47 Blood Pressure 134/62 H 03/16/25 20:47 Pulse Oximetry (%) 95 03/16/25 20:47 Fall MDM Narrative MDM Narrative:: 75-year-old male patient with significant history of Parkinson, BPH DVT was brought in by EMS for evaluation regarding ground-level fall. Patient was walking with his walker, his feet got caught on something and patient fall landing on his left side. Patient complained of headache on the left, left hip pain, and neck pain. Described as dull ache, severity mild. Denies any LOC no nausea no vomiting no chest pain no abdominal pain no low back pain. Patient told me that he is not taking any blood thinner anymore. X-ray of the hip showed impacted subcapital hip fracture. CT scan of the head came back unremarkable. CT scan of the neck came back unremarkable. Patient is to be transferred for further management since we do have an orthopedic surgeon on-call. Spoke with transfer center, from [facility] see above see above who accepted the transfer, accepting orthopedic surgeon Dr. Barbosa Patient data External records reviewed:: None Clinical information provided by:: patient and EMS Social determinants that could affect healthcare access:: none Patient has the following chronic illnesses:: Parkinson's, BPH How is presenting disease/condition affected by chronic disease/condition?: exacerbated by Evaluation data The following diagnostics were reviewed and interpreted by me:: radiology exam(s) Lab and/or radiology exams considered but not ordered:: None Interpretation Summary: See above Medications / Prescriptions Medications or Prescriptions considered but not ordered:: None Medication administrations:: Medication Administration History Discontinued Medications Hydrocodone Bitart/Acetaminophen (Hydrocodone/Apap 5/325 Tablet) 1 tab PO X1 ONE Stop: 03/16/25 20:40 Last Admin: 03/16/25 20:47 Dose: 1 tab Documented By: BHAVESH Presley Consultations Consultation(s) initiated? (list below): No Diagnosis Fall Differential Diagnosis: other (Hip fracture, femoral neck fracture, subcapital femoral neck fracture, status post fall) Most likely diagnosis given after review of the tests above:: Closed subcapital femoral neck fracture, status post fall, history of Parkinson Admission Indicated Admission indicated?: not indicated (Transferred to higher level care with orthopedic surgeon around) Admission Request Was there a request for admission?: No Disposition Plan Disposition Plan: Transfer Discharge Plan Plan Patient Disposition: [facility] Pt Being Transferred to: [facility] Prescriptions/Referrals Prescriptions/Med Rec: No Action cephalexin 500 mg capsule 500 mg PO TID Qty: 21 0RF ropinirole 1 mg tablet 0.5 mg PO QAM tamsulosin 0.4 mg capsule 0.4 mg PO DAILY Patient Comments: GENERIC FOR FLOMAX... TAKE 1 CAPSULE BY MOUTH EVERY DAY Rytary 61.25-245 mg capsule, extended release 1 cap PO TID Rx Instructions: divide evenly over waking hours ropinirole 0.5 mg tablet 0.5 mg PO DAILY Patient Comments: TAKE 1 TABLET BY MOUTH EVERY MORNING AND 2 TABLETS BY MOUTH AT NIGHT prucalopride 1 mg tablet 1 mg PO DAILY Patient Comments: TAKE 1 TABLET BY MOUTH DAILY sennosides [senna] 8.6 mg tablet 17.2 mg PO HS PRN (Reason: constipation) Patient Comments: TAKE 2 TABLETS BY MOUTH DAILY AT BEDTIME NEEDED tizanidine 4 mg tablet 4 mg PO HS Patient Comments: TAKE 1 TO 2 TABLETS BY MOUTH AT NIGHT melatonin 10 mg capsule 10 mg PO HS Eliquis DVT-PE Treat 30D Start 5 mg (74 tabs) tablets,dose pack 5 mg PO BID Qty: 74 0RF Rx Instructions: Take 10mg twice daily until end of 08/21/24 for a total of 6 more days After, start taking 5mg twice daily Referrals: Kenya Srinivasan MD [Primary Care Provider] - In 1 week Problem List Clinical Impression: Fracture of hip Patient/Caregiver Discharge Instructions Print Language: Korean Stand Alone Forms: [employer] Info., Patient Portal Info Letter
[2025-03-16 20:47] VITALS: BP 134/62; PULSE 84; RESP 20; TEMP 36.8; O2SAT 95
[2025-03-16] MEDS: HYDROcodone/APAP 5/325 TABLET 1 TAB PO (20:47)
--- NOTE | 2025-03-16 22:15 | PC.NURSE ---
FAXED INFORMATION TO [facility] FOR POSSIBLE TRANSPORT.
[2025-03-16 22:20] VITALS: BP 156/84; PULSE 72; RESP 18; TEMP 36.6; O2SAT 96
--- NOTE | 2025-03-16 22:51 | PC.NURSE ---
[id number], ACCEPTED TO [facility] , ED TO ED, REPORT #[id number], SPOKE TO MELLISSA.
[2025-03-16 23:49] VITALS: BP 141/90; PULSE 81; RESP 23; TEMP 36.9; O2SAT 97
[2025-03-16] MEDS: PROCHLORPERAZINE INJ 5 MG/ML VIAL 2 ML IV (23:51)
[2025-03-16] MEDS: MORPHINE SULF INJ 4 MG/ML VIAL IVP (23:51)
--- NOTE | 2025-03-17 | PC.NURSE ---
CALLED REPORT TO [facility] SPOKE TO FELIPE FORDE.
== END 2025-03-17 00:02 | disposition short-term general hospital (02) ==
PROVIDERS: Emergency Provider Emergency Medicine; PCP Family Medicine
DX: S72.012A Unspecified intracapsular fracture of left femur, initial encounter for closed fracture (principal); S19.9XXA Unspecified injury of neck, initial encounter; S09.90XA Unspecified injury of head, initial encounter; G20.A1 Parkinson's disease without dyskinesia, without mention of fluctuations; N40.0 Benign prostatic hyperplasia without lower urinary tract symptoms; Z86.718 Personal history of other venous thrombosis and embolism; W18.30XA Fall on same level, unspecified, initial encounter; Y93.01 Activity, walking, marching and hiking
CPT/HCPCS: 70450; 72125; 73502; 96374; 99284; J0780; J2270; A9270